=== PATIENT | female | born 1945 ===

== ENCOUNTER 2021-09-25 09:26 | Outpatient (REF) | payer MEDICARE, MEDICAID, SELFPAY ==
--- NOTE | ~2021-09-25 | MM_ITS ---
EXAMINATION: MM SCREENING DIGITAL BREAST TOMOSYNTHESIS, BILATERAL CLINICAL INFORMATION: Screening. Asymptomatic. The lifetime risk of breast cancer based on the Tyrer-Cuzick Model is under 2%. COMPARISON: Mammography: 08/14/2020, 08/09/2019, 07/19/2018 TECHNIQUE: Digital breast tomosynthesis is performed in both the craniocaudal and mediolateral oblique views along with computer-aided detection (CAD). Synthesized 2D images are generated from the tomosynthesis. FINDINGS: There are scattered areas of fibroglandular density (ACR BI-RADS breast composition Category b). There are no significant masses, abnormal calcifications, or other abnormalities. The axilla and skin contours are unremarkable. MM/MM tomosynthesis screening BI IMPRESSION: No mammographic evidence of malignancy. ASSESSMENT: BI-RADS 1: Negative RECOMMENDATION: Routine annual mammography screening. This patient's information was entered into a reminder system with a target due date for their next mammogram.
== END 2021-09-25 09:27 | disposition home or self-care (01) ==
LOC: HO.MAMMO 09:26
PROVIDERS: Visit Provider Internal Medicine
DX: Z12.31 Encounter for screening mammogram for malignant neoplasm of breast (principal)
CPT/HCPCS: 77063; 77067

== ENCOUNTER 2021-12-30 12:34 | Outpatient (REF) | payer MEDICARE, MEDICAID, SELFPAY ==
--- NOTE | ~2021-12-30 | CT_ITS ---
EXAMINATION: CT HEAD WITHOUT CONTRAST CLINICAL INFORMATION: Fall COMPARISON: Previous head CT most recent December 2014 TECHNIQUE: Contiguous axial imaging was performed from the skull base to vertex without intravenous administration of contrast. This CT examination was performed using dose optimization techniques as appropriate, variously including the following: *Automated exposure control *Adjustment of mA and/or kV according to patient size (this includes techniques or standardized protocols for targeted exams where dose is matched to indication/reason for exam; i.e. extremities or head) *Use of iterative reconstruction technique DLP: 677 mGy-cm FINDINGS: There is no evidence of acute intracranial hemorrhage or territorial infarction. No abnormal mass effect or midline shift is seen. Fry to white matter differentiation is well preserved. No extra-axial fluid collections are identified. The ventricles are normal in size. There is no abnormal attenuation within the brain parenchyma. The osseous structures and soft tissues are normal. The mastoid air cells and visualized portions of the paranasal sinuses are well aerated. CT/CT head/brain wo con IMPRESSION: Unremarkable exam.
== END 2021-12-30 12:35 | disposition home or self-care (01) ==
LOC: HO.CT 12:34
PROVIDERS: PCP Internal Medicine; Visit Provider Family Medicine
DX: R15.9 Full incontinence of feces (principal); R55 Syncope and collapse; R56.9 Unspecified convulsions
CPT/HCPCS: 70450

== ENCOUNTER 2022-01-14 09:05 | Outpatient (REF) | payer MEDICARE, MEDICAID, SELFPAY ==
[2022-01-14 10:17] LABS: Blood Urea Nitrogen 17 mg/dL (9-16); Estimated Glomerular Filt Rate 54
== END 2022-01-14 09:06 | disposition home or self-care (01) ==
LOC: HO.CT 09:05
PROVIDERS: Visit Provider Otolaryngology
DX: D37.039 Neoplasm of uncertain behavior of the major salivary glands, unspecified (principal)
CPT/HCPCS: 36415; 82565; 84520

== ENCOUNTER 2022-03-25 09:07 | Outpatient (REF) | payer MEDICARE, MEDICAID, SELFPAY ==
[2022-03-25 10:28] LABS: Blood Urea Nitrogen 14 mg/dL (9-16); Estimated Glomerular Filt Rate > 60
== END 2022-03-25 09:08 | disposition home or self-care (01) ==
LOC: HO.LAB 09:07
PROVIDERS: PCP Internal Medicine; Visit Provider Otolaryngology
DX: D37.030 Neoplasm of uncertain behavior of the parotid salivary glands (principal)
CPT/HCPCS: 36415; 82565; 84520

== ENCOUNTER 2022-03-26 10:34 | Outpatient (REF) | payer MEDICARE, MEDICAID, SELFPAY ==
--- NOTE | ~2022-03-26 | CT_ITS ---
EXAMINATION: CT SOFT TISSUE NECK WITH CONTRAST CLINICAL INFORMATION: Neoplasm of salivary. COMPARISON: Neck CT 01/19/2019. TECHNIQUE: Following the administration of 60 mL of Omnipaque 300 intravenous contrast, helical imaging was performed in the axial plane with generation of coronal and sagittal reformatted images. This CT examination was performed using dose optimization techniques as appropriate, variously including the following: *Automated exposure control *Adjustment of mA and/or kV according to patient size (this includes techniques or standardized protocols for targeted exams where dose is matched to indication/reason for exam; i.e. extremities or head) *Use of iterative reconstruction technique DLP: 221 mGy-cm FINDINGS: There is redemonstration of a lesion within the superficial aspect of the left parotid tail. The margins are not well-defined lytic lesion measuring approximately 1.2 cm, slightly increased compared with prior. An intraparotid lymph node within the superior portion of the left parotid gland appears stable from prior. A 5 mm nodule within the deep aspect of the left parotid gland seen on series 3 image 98 is stable. No inflammation is seen subjacent to the left parotid gland. There is no Stensen's duct dilatation. The right parotid gland appears normal. The bilateral submandibular glands appear normal. No enlarged cervical lymph nodes are seen. The pharyngeal and laryngeal contours appear normal. A subcentimeter nodule is seen within left lobe of the thyroid gland, stable from prior. This small nodule is below size criteria for dedicated thyroid ultrasound recommendation. No upper mediastinal adenopathy is seen. The upper lungs are clear with without consolidation. The major neck vessels are patent. No acute intracranial abnormality is seen. Mild degenerative changes are seen within the spine. CT/CT soft tissue neck w con IMPRESSION: Redemonstration of nodule within the superficial aspect of the left parotid tail, slightly increased in size compared with 2019 now measuring 1.2 cm, previously 1.1 cm. The reniform nodule within the more superior aspect of the superficial lobe likely represents an intraparotid lymph node and is stable. A 5 mm nodule in the deep lobe is also stable. No suspicious lymphadenopathy in the neck.
[2022-03-26] MEDS: iohexoL 350 MG/ML 100 ML INFUS..BTL IV (16:20)
== END 2022-03-26 10:35 | disposition home or self-care (01) ==
LOC: HO.CT 10:34
PROVIDERS: PCP Internal Medicine; Visit Provider Otolaryngology
DX: D37.030 Neoplasm of uncertain behavior of the parotid salivary glands (principal)
CPT/HCPCS: 70491; Q9967

== ENCOUNTER 2022-08-06 19:03 | Emergency (ER) | payer MEDICARE, MEDICAID, SELFPAY ==
--- NOTE | ~2022-08-06 | CT_ITS ---
EXAMINATION: CT ANGIOGRAM OF THE CHEST WITH AND WITHOUT CONTRAST (CT PULMONARY ANGIOGRAM FOR PE) CLINICAL INFORMATION: Reason for Exam sob and elevated d-dimer COMPARISON: 03/05/2017 TECHNIQUE: Prior to contrast administration, noncontrast localization images were obtained. Subsequently, multidetector volumetric imaging was performed from the thoracic inlet to below the diaphragms following the administration of 85 mL Omnipaque 350 intravenous contrast. No contrast reaction reported Sagittal, coronal, and MIP oblique sagittal reformatted images were obtained on the CT workstation, uploaded to PACS, and reviewed. This CT examination was performed using dose optimization techniques as appropriate, variously including the following: *Automated exposure control *Adjustment of mA and/or kV according to patient size (this includes techniques or standardized protocols for targeted exams where dose is matched to indication/reason for exam; i.e. extremities or head) *Use of iterative reconstruction technique Total exam dose-length product 212 mGy-cm FINDINGS: QUALITY OF STUDY/CONTRAST BOLUS: Satisfactory. PULMONARY ARTERIES: No central or segmental pulmonary emboli. THORACIC AORTA: No aneurysm or dissection. Scattered atherosclerotic calcifications. LUNG: No regions of consolidation bilaterally. There is a stable 4 mm nodule along a suspected accessory fissure in the right lower lobe. PLEURA: No pleural effusion or pneumothorax. MEDIASTINUM: Subcentimeter left thyroid lobe nodule noted. There are subcentimeter mediastinal lymph nodes within the range of normal variation. Cardiac size is within normal limits; no pericardial effusion. No evidence of septal bowing or right heart strain. CHEST WALL/AXILLA: No axillary or internal mammary lymphadenopathy. OSSEOUS STRUCTURES: Endplate osteophytes are present in the spine. UPPER ABDOMEN: Unremarkable. No reflux of contrast into the hepatic veins to suggest elevated right heart pressures. CT/CT angio chest PE protocol IMPRESSION: No pulmonary embolus identified. VTE: negative
--- NOTE | ~2022-08-06 | XR_ITS ---
EXAMINATION: XR CHEST CLINICAL INFORMATION: Chest tightness COMPARISON: Chest x-ray 09/10/2018 TECHNIQUE: Frontal view of the chest was obtained. FINDINGS: Small patchy opacity superimposing the left heart border adjacent to the anterior left fifth rib end. No airspace consolidation, pleural effusion, or pneumothorax. The cardiomediastinal silhouette is within normal limits. No acute osseous injury. XR/XR chest 1V IMPRESSION: 1. Small patchy opacity superimposing the left heart border, indeterminate. This may represent focal atelectasis, summation artifact or small pulmonary nodule. Low-dose chest CT could be performed for definitive assessment. 2. No acute pulmonary process.
[2022-08-06 19:22] VITALS: BP 137/56; BP 180/90; PULSE 110; PULSE 99; RESP 22; TEMP 36.7; O2SAT 100; BMI 25.7
--- NOTE | 2022-08-06 19:45 | ECG_ITS ---
Test Reason : ALLERGIC REACTION Blood Pressure : / mmHG Vent. Rate : 097 BPM Atrial Rate : 097 BPM P-R Int : 146 ms QRS Dur : 072 ms QT Int : 334 ms P-R-T Axes : 047 022 076 degrees QTc Int : 424 ms Normal sinus rhythm Nonspecific T wave abnormality Abnormal ECG When compared with ECG of 10-SEP-2018 10:51, No significant change was found Referred By: Ramiro Owens Electronically Signed By:MARLIN RUSSELL
--- NOTE | 2022-08-06 19:45 | ED_ITS ---
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 Patient was given for a flu vaccination today at 12:30 in her left arm, shortly after patient felt very anxious, tightness in her chest, SOB. Patient took the vaccination about 7 hours ago, in the emergency room patient is maintaining oxygenation to 100%, no sign of upper airway obstruction or swelling. Patient never had a history of allergic reaction to flu shot. Declined any recent travel couple no lower extremity swelling or tenderness. Never had a history of PE or DVT. Related Data Allergies Allergy/AdvReac Type Severity Reaction Status Date / Time acetaminophen [Percocet] Allergy Unknown Verified 07/28/19 00:00 ibuprofen [From MOTRIN] Allergy Unknown DIZZINESS Unverified 08/16/20 14:38 oxycodone [Percocet] Allergy Unknown Verified 07/28/19 00:00 From PERCOCET Allergy Unknown NAUSEA & Uncoded 08/16/20 14:38 VOMITING,DIZZINESS MOTRIN Allergy Unknown GASTRIC Uncoded 07/28/19 00:00 UPSET Review of Systems Review of Systems: All other systems are reviewed and are negative Constitutional: Reports as per HPI and Reports no additional constitutional complaints Eyes: Reports as per HPI and Reports no additional eye complaints Reports system reviewed and no additional complaints, except as documented Cardiovascular: Reports as per HPI and Reports no additional cardiovascular complaints Respiratory: Reports as per HPI and Reports no additional respiratory complaints Gastrointestinal: Reports as per HPI and Reports no additional gastrointestinal complaints Genitourinary: Reports no additional female genitourinary complaints Musculoskeletal: Reports no additional musculoskeletal complaints Skin/Breast: Reports system reviewed and no additional complaints, except as docu Psychiatric: Reports no additional psychiatric complaints Endocrine: Reports no additional endocrine complaints Hematologic/Lymphatic: Reports no additional hematologic/lymphatic complaints Allergic/Immunologic: Reports no additional allergic/immunologic complaints Reports system reviewed and no additional complaints, except as documented and Reports Abnormal speech present PMFSH Past Medical History Medical History Anxiety Chronic leg pain Hyperlipidemia Hypertension Social History Social History Alcohol intake: never Patient Tobacco Use Status: Never used Tobacco Use of substances other than those prescribed or required for medical reasons: No Advance Directives: No Physical Exam ED Vital Signs: Vital Signs - 24 hr 08/06/22 19:22 08/06/22 22:00 Temperature 98.1 F Pulse Rate 99 91 Respiratory Rate 22 H Blood Pressure 137/56 L 127/48 L Pulse Oximetry 100 97 Oxygen Delivery Method Room Air Room Air BMI result Body Mass Index 25.7 Vital signs have been reviewed as appeared to be correct. Blood pressure normal. Heart rate normal. Respiration rate normal. Temperature normal. Oxygen saturation normal. Appearance: Alert. Oriented X3. No acute distress. Head: Normal external exam. Normocephalic. Atraumatic. No Camp signs noted. No raccoon eyes noted Eyes: PERRLA. EOMI. Conjunctiva and sclera normal. Eyelids normal. ENT: TM's Normal. Pharynx normal. Uvula midline. Moist mucous membranes. No trismus noted. No drooling noted. No muffled voice noted. Neck: Normal inspection. Neck supple. FROM. No adenopathy. Thyroid Normal. No meningeal signs. No neck mass noted. CVS: Normal heart rate and rhythm. Heart sound normal. No murmurs noted. Pulses normal throughout. Respiratory: No respiratory distress. Painless inspiration. Breath sounds normal. No wheezes/rales/rhonchi noted. Chest nontender. No accessory muscle usage noted or decreased air movement noted. Abdomen: Soft and nontender. Bowel sounds normal in all 4 quadrants. No distention noted. No organomegaly noted. No visible injury noted. Back: No CVA tenderness. Full range of motion noted. Skin: Skin warm and dry. Normal skin color. Normal skin turgor. No rash es/lesions/lacerations noted. Extremities: No lower extremity edema. Extremities exhibit normal range of motion. Extremities nontender. Neuro: Oriented X 3. Cranial nerve exam: II-XII are grossly intact No motor deficit. No sensory deficit. Reflexes normal. Course Course Course Narrative: This is a 77-year-old female came in for evaluation of shortness of breath after having flu shot vaccination earlier today, overall patient is doing well, labs revealed elevated D-dimer with possibility of PE, patient will be getting CT angiogram of the chest due to allergy to IV contrast patient will be premedicated with Solu-Medrol 40 mg 4 hours before the study and 50 mg of Benadryl 1 hour before the study the patient was signed out to Dr. De La Cruz to check on the CTA result, Patient was able to ambulate in the emergency department with no exertional hypoxia. Because elevated D-dimer. Medical Decision Making Lab Data Lab results reviewed: Yes I reviewed the patient's lab results. Result diagrams: 08/06/22 20:15 08/06/22 20:15 Labs: Lab Results 08/06/22 08/06/22 08/06/22 Range/Units 20:15 20:15 20:15 WBC 11.0 H (4.8-10.8) X10*3/uL RBC 3.69 L (4.20-5.50) X10*6/uL Hgb 10.5 L (12.0-16.0) g/dl Hct 30.9 L (37.0-47.0) % MCV 83.7 (80.0-98.0) fL MCH 28.5 (27.0-33.0) pg MCHC 34.0 (31.0-35.0) g/dl RDW 13.6 (11.0-16.0) % Plt Count 285 (160-400) X10*3/uL MPV 9.4 (9.4-12.3) fL Immature Gran % (Auto) 0.5 H (0.0-0.4) % Neut % (Auto) 92.7 H (45-73) % Lymph % (Auto) 1.3 L (20-40) % [place] % (Auto) 4.8 (2-11) % Eos % (Auto) 0.5 (0-4) % Baso % (Auto) 0.2 (0-2) % Lymph # (Auto) 0.1 L (1.2-4.9) X10*3/uL [place] # (Auto) 0.5 (0.1-1.2) X10*3/uL Eos # (Auto) 0.1 (0.0-0.4) X10*3/uL Baso # (Auto) 0.0 (0.0-0.2) X10*3/uL Abs Immat Gran (auto) 0.05 H (0.00-0.03) X10*3/uL Absolute Neuts (auto) 10.2 H (2.0-8.3) x10*3/uL Absolute Nucleated RBC 0.000 (0.0-0.012) X10*3/uL Nucleated RBC % (auto) 0.0 (0.0-0.2) /100WBC Smear Tech's Comments VERIFIED D-Dimer High Sensitivty NG/ML Sodium 132 L (135-145) mmol/L Potassium 4.3 (3.3-5.1) mmol/L Chloride 99 (96-108) mmol/L Carbon Dioxide 22 (22-29) mmol/L Anion Gap 15 (12-20) BUN 27 H D (9-16) mg/dL Creatinine 1.15 (0.5-1.4) mg/dL Estim Creat Clear Calc 35.5 Estimated GFR 46 Random Glucose 110 (60-115) mg/dL Calcium 8.5 (8.4-10.2) mg/dL Total Bilirubin 0.5 (0.0-1.0) mg/dL Direct Bilirubin 0.2 (0.0-0.5) mg/dL AST 25 (5-31) U/L ALT 18 (0-31) U/L Alkaline Phosphatase 91 (39-117) U/L Troponin I High Sens < 3.5 (<3.5-17.0) ng/L B-Natriuretic Peptide (<100) pg/mL Total Protein 5.9 L (6.5-8.0) g/dL Albumin 3.5 (3.5-5.0) g/dL Lipase 45 (8-78) U/L Influenza Type A (PCR) (Negative) Influenza Type B (PCR) (Negative) RSV RNA Qual (PCR) (Negative) SARS-CoV-2 RNA (RT-PCR) (Negative) 08/06/22 08/06/22 08/06/22 Range/Units 20:15 20:15 20:15 WBC (4.8-10.8) X10*3/uL RBC (4.20-5.50) X10*6/uL Hgb (12.0-16.0) g/dl Hct (37.0-47.0) % MCV (80.0-98.0) fL MCH (27.0-33.0) pg MCHC (31.0-35.0) g/dl RDW (11.0-16.0) % Plt Count (160-400) X10*3/uL MPV (9.4-12.3) fL Immature Gran % (Auto) (0.0-0.4) % Neut % (Auto) (45-73) % Lymph % (Auto) (20-40) % [place] % (Auto) (2-11) % Eos % (Auto) (0-4) % Baso % (Auto) (0-2) % Lymph # (Auto) (1.2-4.9) X10*3/uL [place] # (Auto) (0.1-1.2) X10*3/uL Eos # (Auto) (0.0-0.4) X10*3/uL Baso # (Auto) (0.0-0.2) X10*3/uL Abs Immat Gran (auto) (0.00-0.03) X10*3/uL Absolute Neuts (auto) (2.0-8.3) x10*3/uL Absolute Nucleated RBC (0.0-0.012) X10*3/uL Nucleated RBC % (auto) (0.0-0.2) /100WBC Smear Tech's Comments D-Dimer High Sensitivty 692 NG/ML Sodium (135-145) mmol/L Potassium (3.3-5.1) mmol/L Chloride (96-108) mmol/L Carbon Dioxide (22-29) mmol/L Anion Gap (12-20) BUN (9-16) mg/dL Creatinine (0.5-1.4) mg/dL Estim Creat Clear Calc Estimated GFR Random Glucose (60-115) mg/dL Calcium (8.4-10.2) mg/dL Total Bilirubin (0.0-1.0) mg/dL Direct Bilirubin (0.0-0.5) mg/dL AST (5-31) U/L ALT (0-31) U/L Alkaline Phosphatase (39-117) U/L Troponin I High Sens (<3.5-17.0) ng/L B-Natriuretic Peptide 17 (<100) pg/mL Total Protein (6.5-8.0) g/dL Albumin (3.5-5.0) g/dL Lipase (8-78) U/L Influenza Type A (PCR) NEGATIVE (Negative) Influenza Type B (PCR) NEGATIVE (Negative) RSV RNA Qual (PCR) NEGATIVE (Negative) SARS-CoV-2 RNA (RT-PCR) NEGATIVE (Negative) Imaging Data Chest x-ray: Attestation: I personally reviewed and interpreted this imaging study as follows: Radiologist's impression: 1. Small patchy opacity superimposing the left heart border, indeterminate. This may represent focal atelectasis, summation artifact or small pulmonary nodule. Low-dose chest CT could be performed for definitive assessment. 2. No acute pulmonary process. ? ECG Data Attestation: I personally reviewed and interpreted this ECG as follows: Interpretation: Normal sinus rhythm at 97 beats per minutes, normal axis deviation, normal intervals, nonspecific T-wave inversion. No change from previous EKG. Discharge Plan Discharge Clinical Impression: Post-vaccination reaction Patient Disposition: Still a Patient Instructions: General Allergic Reaction (ED) Referrals: Anshu Mayo MD [Primary Care Provider] -
[2022-08-06 20:21] LABS: Basophils Percent Auto 0.2 % (0-2); Eosinophils Absolute Auto 0.1 X10*3/uL (0.0-0.4); Eosinophils Percent Auto 0.5 % (0-4); Hematocrit 30.9 % (37.0-47.0); Hemoglobin 10.5 g/dl (12.0-16.0); Imm Gran Abs Auto 0.05 X10*3/uL (0.00-0.03); Imm Gran Pct Auto 0.5 % (0.0-0.4); Lymphocytes Absolute Auto 0.1 X10*3/uL (1.2-4.9); Lymphocytes Percent Auto 1.3 % (20-40); MANUAL DIFF FLAG SCAN; Mean Corpuscular Hemoglobin 28.5 pg (27.0-33.0); Mean Corpuscular Volume 83.7 fL (80.0-98.0); Mean Platelet Volume 9.4 fL (9.4-12.3); Monocytes Absolute Auto 0.5 X10*3/uL (0.1-1.2); Monocytes Percent Auto 4.8 % (2-11); Neutrophils Absolute Auto 10.2 x10*3/uL (2.0-8.3); Neutrophils Percent Auto 92.7 % (45-73); Platelet Count 285 X10*3/uL (160-400); Red Blood Count 3.69 X10*6/uL (4.20-5.50); Red Cell Distribution Width 13.6 % (11.0-16.0); SCAN SMEAR FLAG 1
[2022-08-06 20:28] LABS: D Dimer High Sensitivity 692 NG/ML
[2022-08-06 20:35] LABS: Alanine Aminotransferase 18 U/L (0-31); Albumin Level 3.5 g/dL (3.5-5.0); Alkaline Phosphatase 91 U/L (39-117); Anion Gap 15 (12-20); Aspartate Amino Transferase 25 U/L (5-31); Bilirubin Direct 0.2 mg/dL (0.0-0.5); Bilirubin Total 0.5 mg/dL (0.0-1.0); Blood Urea Nitrogen 27 mg/dL (9-16); Calcium 8.5 mg/dL (8.4-10.2); Carbon Dioxide 22 mmol/L (22-29); Chloride 99 mmol/L (96-108); Creatinine Clr Calc Pharmacy 35.5; Estimated Glomerular Filt Rate 46; Glucose Random 110 mg/dL (60-115); Lipase 45 U/L (8-78); Potassium 4.3 mmol/L (3.3-5.1); Sodium 132 mmol/L (135-145); Total Protein 5.9 g/dL (6.5-8.0)
[2022-08-06 20:38] LABS: SLIDE REVIEW VERIFIED
[2022-08-06 20:41] LABS: B Type Natriuretic Peptide 17 pg/mL (<100); Troponin-I High Sensitivity < 3.5 ng/L (<3.5-17.0)
--- NOTE | 2022-08-06 20:50 | PC.NURSE ---
pt a&ox3, vss, chest XR and lab results pending. pt reports 10/10 chronic pain lower extremity pain, worse in left leg, 9/10 at baseline. no sob/difficulty breathing noted by RN.
[2022-08-06 21:14] LABS: Influenza A PCR NEGATIVE (Negative); Influenza B PCR NEGATIVE (Negative); Resp Syncy Virus RNA Qual PCR NEGATIVE (Negative); SARS COV2 PCR INHOUSE NEGATIVE (Negative)
[2022-08-06 22:00] VITALS: BP 127/48; PULSE 91; O2SAT 97
[2022-08-06] MEDS: methylPREDNISolone Sod Succ 40 MG/ML VIAL IVPUSH (22:26)
--- NOTE | 2022-08-06 22:30 | PC.NURSE ---
pt a&ox3, medicated per provider order pre CT scan.
[2022-08-06 23:48] VITALS: BP 133/59; PULSE 81; RESP 18
[2022-08-07] MEDS: diphenhydrAMINE HCL 50 MG/ML VIAL IVPUSH (01:01)
--- NOTE | 2022-08-07 01:05 | PC.NURSE ---
pt sleeping, woken up and medicated per provider order. pt pending CT.
[2022-08-07 01:46] VITALS: BP 136/63; PULSE 94; RESP 19
[2022-08-07 02:44] LABS: Appearance Urine Cloudy; Color Urine Yellow; Glucose Urine UA Negative (Negative); Leukocyte Esterase Urine Large (3+) (Negative); Nitrite Urine Negative (Negative); PH 6.5 (5.0-9.0); Specific Gravity - Urine <= 1.005 (1.005-1.025); Urine Blood Moderate (2+) (Negative); Urine Ketones Negative (Negative); Urine Protein 100 (2+) mg/dL (Neg-Trace)
[2022-08-07] MEDS: iohexoL 350 MG/ML 100 ML INFUS..BTL 85 ML IV (02:54)
[2022-08-07 02:55] LABS: Bacteria Urine 4+ (None Seen); Hyaline Casts Urine 0-2 /LPF (0-2); RBC Urine 0-2 /HPF (0-2); Squamous Epithelial Cell Urine >20 /HPF (0-2); UACC Culture Trigger YES; WBC Urine >50 /HPF (0-5)
== END 2022-08-07 04:01 | disposition home or self-care (01) ==
PROVIDERS: Emergency Provider Emergency Medicine; PCP Internal Medicine
DX: R06.02 Shortness of breath (principal); T50.B95A Adverse effect of other viral vaccines, initial encounter; Y92.039 Unspecified place in apartment as the place of occurrence of the external cause; E78.5 Hyperlipidemia, unspecified; I10 Essential (primary) hypertension; Z20.822 Contact with and (suspected) exposure to COVID-19
CPT/HCPCS: 0241U; 36415; 71045; 71275; 80048; 80076; 81001; 83690; 83880; 84484; 85025; 85379; 87086; 93005; 96374; 96375; 99284; J1200; J2920; Q9967

== ENCOUNTER 2022-09-23 07:28 | Outpatient (REF) | payer MEDICARE, MEDICAID, SELFPAY ==
--- NOTE | ~2022-09-23 | CT_ITS ---
EXAMINATION: CT CHEST WITHOUT CONTRAST CLINICAL INFORMATION: Pulmonary nodule COMPARISON: Previous chest CT scans most recent chest CTA July 2022 and February 2017 TECHNIQUE: Multidetector volumetric CT imaging of the chest was done. Axial MIP volume rendering provided. Sagittal and coronal reformatted images were obtained. This CT examination was performed using dose optimization techniques as appropriate, variously including the following: *Automated exposure control *Adjustment of mA and/or kV according to patient size (this includes techniques or standardized protocols for targeted exams where dose is matched to indication/reason for exam; i.e. extremities or head) *Use of iterative reconstruction technique DLP: 113 mGy-cm FINDINGS: DIGITAL ARCHIVIST: Unremarkable. LUNGS: There is scarring or chronic subsegmental atelectasis in the right upper lobe axial image 79 series 5 that is stable. There is a 4 mm right lower lobe nodule axial image 258 series 5 that is stable. There is a 3 mm right lower lobe nodule axial image 326 series 5 that is stable. There may be mild bronchiectasis seen in the bilateral lower lobes. This is stable as well. MEDIASTINUM: The mediastinum is normal. CORONARY ARTERY CALCIFICATION: Mild PLEURA: There is no pleural effusion. No pleural mass or thickening. AXILLA: No lymphadenopathy. UPPER ABDOMEN: Unremarkable. OSSEOUS STRUCTURES: Mild degenerative changes. CT/CT chest wo IV con IMPRESSION: Stable small right pulmonary nodules. Fleischner guidelines were followed.
== END 2022-09-23 07:29 | disposition home or self-care (01) ==
LOC: HO.CT 07:28
PROVIDERS: PCP Internal Medicine; Visit Provider Internal Medicine
DX: R91.1 Solitary pulmonary nodule (principal); R93.89 Abnormal findings on diagnostic imaging of other specified body structures
CPT/HCPCS: 71250

== ENCOUNTER 2022-10-01 09:29 | Outpatient (REF) | payer MEDICARE, MEDICAID, SELFPAY ==
--- NOTE | ~2022-10-01 | MM_ITS ---
EXAMINATION: MM SCREENING DIGITAL BREAST TOMOSYNTHESIS, BILATERAL CLINICAL INFORMATION: Screening. Asymptomatic. COMPARISON: Mammography: 09/25/2021, 08/14/2020, 08/09/2019 TECHNIQUE: Digital breast tomosynthesis is performed in both the craniocaudal and mediolateral oblique views along with computer-aided detection (CAD). Synthesized 2D images are generated from the tomosynthesis. FINDINGS: There are scattered areas of fibroglandular density (ACR BI-RADS breast composition Category b). There are no significant masses, abnormal calcifications, or other abnormalities. Parenchymal pattern is similar to prior studies. There is no developing density or architectural abnormality. The axilla and skin contours are unremarkable. No significant changes. MM/MM tomosynthesis screening BI IMPRESSION: No mammographic evidence of malignancy. ASSESSMENT: BI-RADS 1: Negative RECOMMENDATION: Routine annual mammography screening. This patient's information was entered into a reminder system with a target due date for their next mammogram.
== END 2022-10-01 09:30 | disposition home or self-care (01) ==
LOC: HO.MAMMO 09:29
PROVIDERS: PCP Internal Medicine; Visit Provider Internal Medicine
DX: Z12.31 Encounter for screening mammogram for malignant neoplasm of breast (principal)
CPT/HCPCS: 77063; 77067

== ENCOUNTER 2023-10-07 09:24 | Outpatient (REF) | payer MEDICARE, MEDICAID, SELFPAY | END 2023-10-07 09:25 | disposition home or self-care (01) | LOC: HO.MAMMO 09:24 | PROVIDERS: Visit Provider Internal Medicine | DX: Z12.31 Encounter for screening mammogram for malignant neoplasm of breast (principal) | CPT/HCPCS: 77063; 77067 ==

== ENCOUNTER → 2023-10-07 10:00 | Outpatient (BNV) | payer MEDICARE, MEDICAID, SELFPAY | PROVIDERS: Visit Provider Radiology Diagnostic Radiology | DX: Z12.31 Encounter for screening mammogram for malignant neoplasm of breast (principal) | CPT/HCPCS: 77063; 77067 ==

== ENCOUNTER 2024-02-21 16:21 | Inpatient (IN) | payer OTHER, SELFPAY ==
[2024-02-21] VITALS (9 sets, daily range): BP systolic 136–202; BP diastolic 45–80; PULSE 77–95; RESP 15–24; TEMP 36.4–36.8; O2SAT 95–99; BMI 23.6
--- NOTE | 2024-02-21 | ECG_ITS ---
Test Reason : chest pain Blood Pressure : / mmHG Vent. Rate : 085 BPM Atrial Rate : 085 BPM P-R Int : 132 ms QRS Dur : 072 ms QT Int : 376 ms P-R-T Axes : 025 017 162 degrees QTc Int : 447 ms Normal sinus rhythm T wave abnormality, consider inferolateral ischemia Abnormal ECG When compared with ECG of 06-AUG-2022 19:54, T wave inversion now evident in Inferior leads T wave inversion now evident in Lateral leads Referred By: Gail Liriano Electronically Signed By:Nic Crowell
--- NOTE | ~2024-02-21 | XR_ITS ---
EXAMINATION: XR CHEST CLINICAL INFORMATION: SOB COMPARISON: Chest x-ray 08/06/2022 TECHNIQUE: Frontal view of the chest was obtained. FINDINGS: Lungs are clear. No focal airspace consolidation. No pneumothorax or pleural effusion. Cardiac silhouette within normal limits. Right shoulder osteoarthritis. Soft tissue structures within normal limits. XR/XR chest 1V IMPRESSION: No acute cardiopulmonary process.
--- NOTE | 2024-02-21 16:47 | PC.NURSE ---
Pt coming from home via EMS, EMS gave pt 0.4 mg of nitro SL due to CP and HTN (pressures were 200 systolic for EMS, improved to 136/45 after 1 nitro). Pt is Turkmen speaking only, private pilot utilized. Pt reports she woke up with SOB, CP (describes as tightness across her chest, 05/09), diarrhea and feeling anxious. Pt reports she took her home anxiety meds but did not feel better. Pt denies any recent illnesses, cough, fever. Pt is alert and oriented, breathing slightly tachypneic, skin dry. 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 Pt noted to be significantly hypertensive. ECG ordered immediately.
--- NOTE | 2024-02-21 17:04 | PC.NURSE ---
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
[2024-02-21 17:08] LABS: Basophils Percent Auto 0.3 % (0-2); Eosinophils Absolute Auto 0.1 X10*3/uL (0.0-0.4); Eosinophils Percent Auto 1.1 % (0-4); Hematocrit 41.1 % (37.0-47.0); Hemoglobin 14.1 g/dl (12.0-16.0); Imm Gran Abs Auto 0.05 X10*3/uL (0.00-0.03); Imm Gran Pct Auto 0.4 % (0.0-0.4); Lymphocytes Absolute Auto 0.4 X10*3/uL (1.2-4.9); Lymphocytes Percent Auto 3.6 % (20-40); MANUAL DIFF FLAG SCAN; Mean Corpuscular HGB Conc 34.3 g/dl (31.0-35.0); Mean Corpuscular Hemoglobin 29.8 pg (27.0-33.0); Mean Corpuscular Volume 86.9 fL (80.0-98.0); Mean Platelet Volume 10.1 fL (9.4-12.3); Monocytes Absolute Auto 0.5 X10*3/uL (0.1-1.2); Monocytes Percent Auto 4.2 % (2-11); Neutrophils Absolute Auto 10.4 x10*3/uL (2.0-8.3); Neutrophils Percent Auto 90.4 % (45-73); Platelet Count 302 X10*3/uL (160-400); Red Blood Count 4.73 X10*6/uL (4.20-5.50); SCAN SMEAR FLAG 1; White Blood Count 11.6 X10*3/uL (4.8-10.8)
--- NOTE | 2024-02-21 17:18 | ECG_ITS ---
Test Reason : repeat ekg Blood Pressure : / mmHG Vent. Rate : 082 BPM Atrial Rate : 082 BPM P-R Int : 144 ms QRS Dur : 070 ms QT Int : 380 ms P-R-T Axes : 032 009 140 degrees QTc Int : 443 ms Normal sinus rhythm T wave abnormality, consider anterolateral ischemia Abnormal ECG When compared with ECG of 21-FEB-2024 16:50, Nonspecific T wave abnormality has replaced inverted T waves in Inferior leads Referred By: Gail Liriano Electronically Signed By:Nic Crowell
[2024-02-21 17:25] LABS: SLIDE REVIEW VERIFIED
[2024-02-21 17:52] LABS: B Type Natriuretic Peptide 88 pg/mL (<100)
[2024-02-21 18:00] LABS: Anion Gap 11 (12-20); Blood Urea Nitrogen 12 mg/dL (9-16); Calcium 8.9 mg/dL (8.4-10.2); Carbon Dioxide 25 mmol/L (22-29); Chloride 106 mmol/L (96-108); Creatinine Clr Calc Pharmacy 41.1; Estimated Glomerular Filt Rate 59; Glucose Random 116 mg/dL (60-115); Lipase 30 U/L (8-78); Potassium 3.9 mmol/L (3.3-5.1); Sodium 138 mmol/L (135-145)
[2024-02-21 18:09] LABS: Troponin-I High Sensitivity 3.2 ng/L (<3.5-17.0)
[2024-02-21 18:20] LABS: Influenza A PCR NEGATIVE (Negative); Influenza B PCR NEGATIVE (Negative); Resp Syncy Virus RNA Qual PCR NEGATIVE (Negative); SARS COV2 PCR INHOUSE NEGATIVE (Negative)
--- NOTE | 2024-02-21 18:47 | ED.CHESTPAIN ---
HPI - Chest Pain General Chief Complaint: Chest Pain Stated Complaint: Chest/abdominal pain, HTN, nitro given Time Seen by Provider: 02/21/24 17:13 Source: patient Mode of arrival: EMS Limitations: no limitations History of Present Illness HPI narrative: Patient comes to the emergency room complaining of chest pressure and shortness of breath that started earlier this morning. Also, patient reports 1 episode of diarrhea. Patient states that she has been feeling anxious all day. Patient called the ambulance, patient was given nitroglycerin sublingual. Patient continues feeling very anxious. Patient states that she still has pressure, and anxiety continues. Related Data Previous Rx's Medication Instructions Recorded amlodipine 10 mg tablet 10 mg PO DAILY #90 tabs 02/21/24 Allergies Allergy/AdvReac Type Severity Reaction Status Date / Time acetaminophen [Percocet] Allergy Unknown Verified 07/28/19 00:00 ibuprofen [From MOTRIN] Allergy Unknown DIZZINESS Unverified 08/16/20 14:38 oxycodone [Percocet] Allergy Unknown Verified 07/28/19 00:00 From PERCOCET Allergy Unknown NAUSEA & Uncoded 08/16/20 14:38 VOMITING,DIZZINESS MOTRIN Allergy Unknown GASTRIC Uncoded 07/28/19 00:00 UPSET Review of Systems Review of Systems: Constitutional : No Weight loss, No Fever, No Chills, No Night Sweats, No Fatigue, No Malaise ENT/Mouth : No Hearing loss, No Ear Pain, No Nasal Congestion, No Sinus Pain, No Hoarseness, No sore throat, No Rhinorrhea, No Swallowing Difficulty Eyes: No Eye Pain, No Swelling, No Redness, No Foreign Body, No Discharge, No Vision Changes Cardiovascular : Complaining of chest pressure without Chest Pain, No SOB, No Dyspnea on Exertion, No Orthopnea, No Edema, No Palpitations Respiratory : Patient complaining of shortness of breath, no wheezing, no coughing Gastrointestinal : No Nausea, No Vomiting, No Diarrhea, No Constipation, No abdominal Pain, No Hematochezia, No Melena Genitourinary : no irregular bleeding, No Dysuria, No Urinary Frequency, No Hematuria, No Urinary Incontinence, No Urgency, No Flank Pain, No Urinary Flow Changes, No Hesitancy Musculoskeletal : No joint pain, No Myalgias, No Joint Swelling Skin : No Skin Lesions, No rash Neuro : No Weakness, No Numbness, No Paresthesias, No Loss of Consciousness, No Dizziness, No Headache Psych : Complaining of Anxiety/Panic, No Depression, No SI/HI/AH/VH, No Social Issues, Heme/Lymph: No Bruising, No Bleeding,No Lymphadenopathy Endocrine : No Polyuria, No Polydipsia, No Temperature Intolerance [facility] [place] Past Medical History Medical History Chronic leg pain Anxiety Hyperlipidemia Hypertension Social History Social History Alcohol intake: never Patient Tobacco Use Status: Never used Tobacco Smoked in Last 30 Days: No Use of substances other than those prescribed or required for medical reasons: No Advance Directives: No Advance Directives Information Provided: No Physical Exam Vital Signs: Vital Signs: Last Vital Signs Temp 98.3 F 02/21/24 22:23 Pulse 77 02/21/24 22:23 Resp 16 02/21/24 22:23 BP 171/63 H 02/21/24 22:23 Pulse Ox 97 02/21/24 22:23 O2 Del Method Room Air 02/21/24 22:23 BMI result Body Mass Index 23.6 Const: Other: Appearance: Alert. Oriented X3. No acute distress but anxious and tearful Eyes: Pupils equal, round and reactive to light. ENT: Pharynx normal. Neck: Normal inspection. Neck supple. No lymph nodes noted. No crepitus CVS: Normal heart rate and rhythm. Pulses normal. Normal S1 and S2 Respiratory: No respiratory distress. Breath sounds normal. No Wheezing. No rales Abdomen: Soft and nontender. No rigidity. No distention. Skin: Skin warm and dry. Normal skin color. Normal skin turgor. Extremities: No lower extremity edema. No Lacerations. No Rash Neuro: Oriented X 3. No motor deficit. No sensory deficit. Moving all extremities. No slurred speech. CN 2 through 12 grossly intact Psych: calm, cooperative, anxious and tearful Course Course Course Narrative: -labs and imaging pending Medications Administered Discontinued Medications Generic Name Dose Route Start Last Admin Trade Name Freq PRN Reason Stop Dose Admin Amlodipine Besylate 10 mg 02/21/24 19:28 02/21/24 19:50 Amlodipine Besylate 10 Mg Tablet PO 02/21/24 19:29 Not Given ONCE ONE Protocol Labetalol HCl 100 mg 02/21/24 21:43 02/21/24 21:57 Labetalol Hcl 100 Mg Tablet PO 02/21/24 21:44 100 mg ONCE ONE Administration Protocol Medical Decision Making Medical Decision Making MDM Narrative: -my interpretation of labs, white blood cell count 11.6, chronic, hematology within normal limits, chemistry within normal limits, troponin negative, lipase negative. Serology negative for COVID influenza RSV -my interpretation of chest x-ray: No infiltrates or pleural effusions -patient's blood pressure 180s systolic, patient denies chest pain or shortness of breath. Patient being given 10 mg of p.o. amlodipine -patient's blood pressure 170 systolic after amlodipine. Patient states that she is compliant with her blood pressure medications at home which include metoprolol 200 mg and losartan 100 mg. -patient states that her blood pressure has been elevated in the 170s 180s for several months. -my interpretation of EKG: Normal sinus rhythm, heart rate 85, nonspecific T-wave inversions in V4 V5 V6 which are new from previous EKGs, no ST segment depressions, QTC 447, these are new T-wave inversions when compared to previous EKGs from 2021 -troponin x1 negative -EKG 2. Today: Normal sinus rhythm, heart rate 82, no ST segment depression or elevation, T-wave inversions in lead V3 to V6, QTC 443 -patient has no chest pain at this time. However, even with blood pressure correction this T-waves still remained. Current blood pressure 152/63 -I discussed with the patient that I recommend admission, patient reluctant to stay, but after having a long conversation with her, patient agreed. -I discussed the patient with Dr. Arita, patient agrees that the patient needs to be admitted for further evaluation. -blood pressure at 21:40, 186/61, patient getting labetalol 100 mg. Patient to be admitted. -at this time, 22:23, blood pressure 171/63, patient asymptomatic. -I discussed the patient with our hospitalist Dr. Landry, patient being admitted. Differential Diagnosis Differential Diagnoses: The differential diagnosis associated with the presentation includes (Hypertensive urgency, anxiety, ACS) Admission/Observation Consideration of admission/observation: Escalation of care including admission/observation considered (Given patient's presentation, symptoms and vitals, patient was considered) Consult Healthcare Provider Management of the patient was discussed with: Hospitalist Lab Data MDM Lab Attestation statement: I reviewed the patient's lab results. 02/21/24 17:02 02/21/24 17:35 Labs: Lab Results 02/21/24 02/21/24 02/21/24 Range/Units 17:02 17:35 21:39 WBC 11.6 H (4.8-10.8) X10*3/uL RBC 4.73 D (4.20-5.50) X10*6/uL Hgb 14.1 D (12.0-16.0) g/dl Hct 41.1 D (37.0-47.0) % MCV 86.9 (80.0-98.0) fL MCH 29.8 (27.0-33.0) pg MCHC 34.3 (31.0-35.0) g/dl RDW 13.0 (11.0-16.0) % Plt Count 302 (160-400) X10*3/uL MPV 10.1 (9.4-12.3) fL Immature Gran % (Auto) 0.4 (0.0-0.4) % Neut % (Auto) 90.4 H (45-73) % Lymph % (Auto) 3.6 L (20-40) % [place] % (Auto) 4.2 (2-11) % Eos % (Auto) 1.1 (0-4) % Baso % (Auto) 0.3 (0-2) % Lymph # (Auto) 0.4 L (1.2-4.9) X10*3/uL [place] # (Auto) 0.5 (0.1-1.2) X10*3/uL Eos # (Auto) 0.1 (0.0-0.4) X10*3/uL Baso # (Auto) 0.0 (0.0-0.2) X10*3/uL Abs Immat Gran (auto) 0.05 H (0.00-0.03) X10*3/uL Absolute Neuts (auto) 10.4 H (2.0-8.3) x10*3/uL Absolute Nucleated RBC 0.000 (0.0-0.012) X10*3/uL Nucleated RBC % (auto) 0.0 (0.0-0.2) /100WBC Smear Tech's Comments VERIFIED Sodium 138 (135-145) mmol/L Potassium 3.9 (3.3-5.1) mmol/L Chloride 106 (96-108) mmol/L Carbon Dioxide 25 (22-29) mmol/L Anion Gap 11 L (12-20) BUN 12 (9-16) mg/dL Creatinine 0.92 (0.5-1.4) mg/dL Estim Creat Clear Calc 41.1 Estimated GFR 59 Random Glucose 116 H (60-115) mg/dL Calcium 8.9 (8.4-10.2) mg/dL Troponin I High Sens 3.2 2.9 (<3.5-17.0) ng/L B-Natriuretic Peptide 88 (<100) pg/mL Lipase 30 (8-78) U/L Urine Color Urine Appearance Urine pH (5.0-9.0) Ur Specific [place] (1.005-1.025) Urine Protein (Neg-Trace) mg/dL Urine Glucose (UA) (Negative) mg/dL Urine Ketones (Negative) mg/dL Urine Blood (Negative) Urine Nitrite (Negative) Ur Leukocyte Esterase (Negative) Urine RBC (0-2) /HPF Urine WBC (0-5) /HPF Ur Squamous Epith Cells (0-2) /HPF Urine Bacteria (None Seen) Hyaline Casts (0-2) /LPF Influenza Type A (PCR) NEGATIVE (Negative) Influenza Type B (PCR) NEGATIVE (Negative) RSV RNA Qual (PCR) NEGATIVE (Negative) SARS-CoV-2 RNA (RT-PCR) NEGATIVE (Negative) 02/21/24 Range/Units 22:06 WBC (4.8-10.8) X10*3/uL RBC (4.20-5.50) X10*6/uL Hgb (12.0-16.0) g/dl Hct (37.0-47.0) % MCV (80.0-98.0) fL MCH (27.0-33.0) pg MCHC (31.0-35.0) g/dl RDW (11.0-16.0) % Plt Count (160-400) X10*3/uL MPV (9.4-12.3) fL Immature Gran % (Auto) (0.0-0.4) % Neut % (Auto) (45-73) % Lymph % (Auto) (20-40) % [place] % (Auto) (2-11) % Eos % (Auto) (0-4) % Baso % (Auto) (0-2) % Lymph # (Auto) (1.2-4.9) X10*3/uL [place] # (Auto) (0.1-1.2) X10*3/uL Eos # (Auto) (0.0-0.4) X10*3/uL Baso # (Auto) (0.0-0.2) X10*3/uL Abs Immat Gran (auto) (0.00-0.03) X10*3/uL Absolute Neuts (auto) (2.0-8.3) x10*3/uL Absolute Nucleated RBC (0.0-0.012) X10*3/uL Nucleated RBC % (auto) (0.0-0.2) /100WBC Smear Tech's Comments Sodium (135-145) mmol/L Potassium (3.3-5.1) mmol/L Chloride (96-108) mmol/L Carbon Dioxide (22-29) mmol/L Anion Gap (12-20) BUN (9-16) mg/dL Creatinine (0.5-1.4) mg/dL Estim Creat Clear Calc Estimated GFR Random Glucose (60-115) mg/dL Calcium (8.4-10.2) mg/dL Troponin I High Sens (<3.5-17.0) ng/L B-Natriuretic Peptide (<100) pg/mL Lipase (8-78) U/L Urine Color Yellow Urine Appearance Cloudy Urine pH 7.0 (5.0-9.0) Ur Specific [place] 1.020 (1.005-1.025) Urine Protein >=1000 (4+) H (Neg-Trace) mg/dL Urine Glucose (UA) Negative (Negative) mg/dL Urine Ketones Negative (Negative) mg/dL Urine Blood Moderate (2+) H (Negative) Urine Nitrite Negative (Negative) Ur Leukocyte Esterase Moderate (2+) H (Negative) Urine RBC >20 H (0-2) /HPF Urine WBC >50 H (0-5) /HPF Ur Squamous Epith Cells >20 (0-2) /HPF Urine Bacteria 4+ (None Seen) Hyaline Casts 6-10 (0-2) /LPF Influenza Type A (PCR) (Negative) Influenza Type B (PCR) (Negative) RSV RNA Qual (PCR) (Negative) SARS-CoV-2 RNA (RT-PCR) (Negative) Independent Interpretation I performed an independent interpretation of an: EKG (My interpretation of EKG, normal sinus rhythm, heart rate 85, no ST segment depression or elevation,) Radiology Impression Discussion of test interpretation with radiology: I have reviewed the radiologist's reading. Radiologist Impression: Lungs are clear. No focal airspace consolidation. No pneumothorax or pleural effusion. Cardiac silhouette within normal limits. Right shoulder osteoarthritis. Soft tissue structures within normal limits. XR/XR chest 1V IMPRESSION: No acute cardiopulmonary process. Independent Historian Clinical information obtained from an independent historian. History obtained from or confirmed by: Other (AIRCRAFT INSTRUMENT TESTER) Critical Care Time Critical Care Time Critical Care Time: Yes Total Critical Care Time: 75 Attestation: I have personally provided critical care time. Time includes review of lab data, radiology results, discussion with consultants, and monitoring for potential decompensation. Intervention performed as documented. Discharge Plan Discharge Clinical Impression: Chest pain, Hypertensive urgency Patient Disposition: Admitted As Inpatient
--- NOTE | 2024-02-21 19:50 | PC.NURSE ---
pt bp improved. hold amlodipine per Dr. Liriano.
--- NOTE | 2024-02-21 21:41 | PC.NURSE ---
pt requested this RN to speak about discharge. with staff development coordinator rn pt reported her sx resolved and she'd like to go home if her results are negative. BP had improved however new t wave inversion noted. repeat ekg obtained. Dr. Lriiano order for repeat troponin. Dr. Liriano at bedside to education patient about plan of care; clutch inspector also educated via telephone by Dr. Liriano. both state understanding plan of care to be admitted to hospital; deny questions/concerns at this time. nad. pt speaking full clear sentences denies sob/n/v/d. call nguyen within reach.
[2024-02-21] MEDS: Labetalol HCL 100 MG TABLET PO (21:57)
[2024-02-21 22:08] LABS: Troponin-I High Sensitivity 2.9 ng/L (<3.5-17.0)
--- NOTE | 2024-02-21 22:10 | PC.NURSE ---
pt tolerated po med per mar with water. ambulated with steady gait to bathroom. ua sent to lab. pt assisted back into room resting comfortably on stretcher watching tv. call nguyen within reach. awaiting lab results.
[2024-02-21 22:14] LABS: Appearance Urine Cloudy; Color Urine Yellow; Glucose Urine UA Negative (Negative); Leukocyte Esterase Urine Moderate (2+) (Negative); Nitrite Urine Negative (Negative); UMIC TRIGGER UACC YES; Urine Blood Moderate (2+) (Negative); Urine Ketones Negative (Negative); Urine Protein >=1000 (4+) mg/dL (Neg-Trace)
[2024-02-21 22:21] LABS: Bacteria Urine 4+ (None Seen); RBC Urine >20 /HPF (0-2); Squamous Epithelial Cell Urine >20 /HPF (0-2); UACC Culture Trigger YES; WBC Urine >50 /HPF (0-5)
--- NOTE | 2024-02-21 23:13 | PM.IMHP ---
History of Present Illness Date of Service: 02/21/24 Attending physician on admission: Halina Collins Chief Complaint: Chest pain Jelly Pope is a Portuguese-speaking 78 y/o woman with past medical history significant for hypertension, hyperlipidemia and anxiety was brought to the emergency department due to chest pain. Patient stated that the chest pain started this morning. She localizes it in the lower mid chest and described it as a pressure. It does radiate to the epigastrium. She stated that she has been experiencing chest pain over the last several months. These episodes are self-limited and usually lasts for 10 minutes. Chest pain is occuring at rest and exertion. Associated symptoms she complains of shortness on breath and nausea. She mentioned that this morning she had an event of diarrhea. Denied cough, vomiting, fever or chills. Denied any acute urinary changes. She denies history of coronary artery disease, congestive heart failure, stroke or diabetes mellitus. She denies tobacco smoking, alcohol abuse or illicit drug use. In the ED, she was initially found to have a blood pressure of 202/73 and some tachypnea. There is no tachycardia and O2 sat normal on room air. Blood workup is remarkable for slow leukocytosis. Hemoglobin is 14.1. There are no electrolyte imbalances. Renal function is normal. Troponin x2 is negative. BNP is 88. Lipase is 30. Urinalysis showed finding of urinary tract infection. ECG showed T-wave inversions from V3 to V6. CXR is negative. ED Tx: Amlodipine 10 mg p.o., labetalol 100 mg p.o. Review of Systems Review of Systems: All 12 systems were reviewed and normal except as noted in HPI. COUNTS INCLUDE 234 BEDS AT THE [facility] Medical History (Updated 02/22/24 @ 01:01 by Halina oCllins MD) Chronic leg pain Anxiety Hyperlipidemia Hypertension Social History Alcohol intake: never Patient Tobacco Use Status: Never used Tobacco Smoked in Last 30 Days: No Use of substances other than those prescribed or required for medical reasons: No Advance Directives: No Advance Directives Information Provided: No Meds Allergies Allergy/AdvReac Type Severity Reaction Status Date / Time ibuprofen [From MOTRIN] Allergy Unknown DIZZINESS Verified 02/21/24 23:51 oxycodone [Percocet] Allergy Unknown Unknown Verified 02/21/24 23:51 From PERCOCET Allergy Unknown NAUSEA & Uncoded 02/21/24 23:51 VOMITING,DIZZINESS MOTRIN Allergy Unknown GASTRIC Uncoded 02/21/24 23:51 UPSET Active Medications: Current Medications Acetaminophen (Acetaminophen 325 Mg Tablet) 650 mg PO Q6H PRN PRN Reason: Pain, Mild (Pain Scale 1-3) Aspirin (Aspirin Enteric Coated 81 Mg Tablet.Dr) 81 mg PO QAM [facility] Atorvastatin Calcium (Atorvastatin Calcium 40 Mg Tablet) 40 mg PO BEDTIME KRISH Enoxaparin Sodium (Enoxaparin Sodium 40 Mg/0.4 Ml Syringe) 40 mg SUBCUT Q24H KRISH Losartan Potassium (Losartan Potassium 50 Mg Tablet) 100 mg PO DAILY KRISH; Protocol Metoprolol Succinate (Metoprolol Succinate Er 100 Mg Tab.Er.24h) 200 mg PO DAILY KRISH; Protocol Nitroglycerin (Nitroglycerin 0.4 Mg Tab.Subl) 0.4 mg SUBLINGUAL Q5MX3 PRN PRN Reason: Chest Pain Sertraline HCl (Sertraline Hcl 100 Mg Tablet) 100 mg PO QAM [facility] Sodium Chloride (0.9 % Sodium Chloride Flush 3 Ml Syringe) 3 ml IVFLUSH QSHIFT KRISH Trazodone HCl (Trazodone Hcl 50 Mg Tablet) 50 mg PO BEDTIME PRN PRN Reason: Insomnia Home Medications Medication Instructions Recorded Confirmed Last Taken Type aspirin 81 mg tablet,delayed 81 mg PO QAM 02/21/24 02/21/24 Unknown History release atorvastatin 40 mg tablet 40 mg BEDTIME 02/21/24 02/21/24 Unknown History clonazepam 0.5 mg tablet 0.5 mg PO DAILY PRN Anxiety 02/21/24 02/21/24 Unknown History fluticasone propionate 50 intranasal BID 02/21/24 Unknown History mcg/actuation nasal spray,suspension losartan 100 mg tablet 100 mg DAILY 02/21/24 02/21/24 Unknown History metoprolol succinate 200 mg 200 mg PO DAILY 02/21/24 02/21/24 Unknown History tablet,extended release 24 hr sertraline 100 mg tablet 100 mg PO QAM 02/21/24 02/21/24 Unknown History trazodone 50 mg tablet 50 mg PO BEDTIME PRN Insomnia 02/21/24 02/21/24 Unknown History Physical Exam Vital Signs and Narrative: Vital Signs: Last Vital Signs Temp 98.3 F 02/21/24 22:23 Pulse 77 02/21/24 22:23 Resp 16 02/21/24 22:23 BP 171/63 H 02/21/24 22:23 Pulse Ox 97 02/21/24 22:23 O2 Del Method Room Air 02/21/24 22:23 BMI result Body Mass Index 23.6 Constitutional - Awake and Alert, No apparent distress. Febrile. HEENT - Pupils equaly round. Normal sclerae. Normal oral mucosa. Heart - Regular rate and rhythm. (+) murmur. Lungs - Normal lung expansion, Normal respiratory effort, No respiratory distress, CTA bilaterally Abdomen - NT / ND; +BS; No rebound or guarding Extremities - no calf tenderness bilaterally, no swelling Musculoskeletal - Normal inspection, normal ROM Skin - Warm/Dry Neurological - Alert & oriented x3. No focal weakness. Normal speech. Psychological - Appropriate affect Results Labs 02/21/24 17:02 02/21/24 17:35 Labs: Laboratory Results - last 24 hr 02/21/24 02/21/24 02/21/24 17:02 17:35 21:39 MCV 86.9 MCH 29.8 MCHC 34.3 RDW 13.0 Plt Count 302 MPV 10.1 Immature Gran % (Auto) 0.4 Neut % (Auto) 90.4 H Lymph % (Auto) 3.6 L [place] % (Auto) 4.2 Eos % (Auto) 1.1 Baso % (Auto) 0.3 Lymph # (Auto) 0.4 L [place] # (Auto) 0.5 Eos # (Auto) 0.1 Baso # (Auto) 0.0 Abs Immat Gran (auto) 0.05 H Absolute Neuts (auto) 10.4 H Absolute Nucleated RBC 0.000 Nucleated RBC % (auto) 0.0 Smear Tech's Comments VERIFIED Anion Gap 11 L Estim Creat Clear Calc 41.1 Estimated GFR 59 Random Glucose 116 H Calcium 8.9 Troponin I High Sens 3.2 2.9 B-Natriuretic Peptide 88 Lipase 30 Urine Color Urine Appearance Urine pH Ur Specific [place] Urine Protein Urine Glucose (UA) Urine Ketones Urine Blood Urine Nitrite Ur Leukocyte Esterase Urine RBC Urine WBC Ur Squamous Epith Cells Urine Bacteria Hyaline Casts Influenza Type A (PCR) NEGATIVE Influenza Type B (PCR) NEGATIVE RSV RNA Qual (PCR) NEGATIVE SARS-CoV-2 RNA (RT-PCR) NEGATIVE 02/21/24 22:06 MCV MCH MCHC RDW Plt Count MPV Immature Gran % (Auto) Neut % (Auto) Lymph % (Auto) [place] % (Auto) Eos % (Auto) Baso % (Auto) Lymph # (Auto) [place] # (Auto) Eos # (Auto) Baso # (Auto) Abs Immat Gran (auto) Absolute Neuts (auto) Absolute Nucleated RBC Nucleated RBC % (auto) Smear Tech's Comments Anion Gap Estim Creat Clear Calc Estimated GFR Random Glucose Calcium Troponin I High Sens B-Natriuretic Peptide Lipase Urine Color Yellow Urine Appearance Cloudy Urine pH 7.0 Ur Specific [place] 1.020 Urine Protein >=1000 (4+) H Urine Glucose (UA) Negative Urine Ketones Negative Urine Blood Moderate (2+) H Urine Nitrite Negative Ur Leukocyte Esterase Moderate (2+) H Urine RBC >20 H Urine WBC >50 H Ur Squamous Epith Cells >20 Urine Bacteria 4+ Hyaline Casts 6-10 Influenza Type A (PCR) Influenza Type B (PCR) RSV RNA Qual (PCR) SARS-CoV-2 RNA (RT-PCR) Imaging Radiologist's Impressions: Impressions Chest X-Ray 02/21/24 19:25 IMPRESSION: No acute cardiopulmonary process. Assessment and Plan (1) Chest pain: Qualifiers: Chest pain type: unspecified Qualified Code(s): R07.9 - Chest pain, unspecified Status: Acute (2) Hyperlipidemia: Qualifiers: Hyperlipidemia type: unspecified Qualified Code(s): E78.5 - Hyperlipidemia, unspecified Status: Acute (3) Anxiety: Status: Acute (4) Hypertension: Qualifiers: Hypertension type: unspecified Qualified Code(s): I10 - Essential (primary) hypertension Status: Acute Plan Jelly Pope is a 78 years old woman admitted with: Chest pain, currently asymptomatic. T-wave inversions V3-V6. Admit to hospitalist service. Telemetry. Continue ASA, beta-livier and statin. Check hemoglobin A1c and lipid panel. Cardiology consult. Hyperlipidemia. Continue statin. Essential hypertension. Patient arrived with significant hypertension that improved after amlodipine and labetalol given in ED. Metoprolol and losartan. Anxiety and depression. Continue sertraline, trazodone and losartan. Presumed UTI. Start ceftriaxone. Urine culture pending. DVT prophylaxis: Lovenox Code status: Full Patient will need hospitalization for at least 2 midnights for chest pain management and treatment she will need close cardiac and vital signs as well as Cardiology evaluation. Quality Stroke Does the patient have a stroke diagnosis?: No VTE Prior VTE?: No VTE Risk Level:: Medical - moderate - high VTE Device Contraindication: Treatment Not Indicated VTE Drug Contraindication: N/A - Med Ordered
[2024-02-22] VITALS (8 sets, daily range): BP systolic 153–195; BP diastolic 68–91; PULSE 70–78; RESP 16–18; TEMP 36.4–36.8; O2SAT 94–98; BMI 23.8
--- NOTE | 2024-02-22 | ECG_ITS ---
Test Reason : ABNORMAL EKG Blood Pressure : / mmHG Vent. Rate : 074 BPM Atrial Rate : 074 BPM P-R Int : 140 ms QRS Dur : 078 ms QT Int : 412 ms P-R-T Axes : 049 021 124 degrees QTc Int : 457 ms Normal sinus rhythm T wave abnormality, consider anterolateral ischemia Abnormal ECG When compared with ECG of 21-FEB-2024 21:23, No significant change was found Referred By: Homer Nguyễn Electronically Signed By:Nic Crowell
[2024-02-22] MEDS: Atorvastatin Calcium 40 MG TABLET PO (00:18)
[2024-02-22] MEDS: Acetaminophen 325 MG TABLET 650 MG PO (00:18)
[2024-02-22] MEDS: clonazePAM 0.5 MG TABLET PO (00:19)
--- NOTE | 2024-02-22 00:20 | PC.NURSE ---
pt reported feeling anxious and 4/10 headache which she usually takes tylenol for. pt reports she does not have an allergy to tylenol; pharmacy aware. prn klonopin provided for anxiety. pt tolerated well with water. pt reports has not eaten all day; requested pudding and water refused other options. nad. warm blanket provided. call nguyen within reach.
--- NOTE | 2024-02-22 01:00 | PC.NURSE ---
no blood cultures needed per Dr. Frantz Collins.
[2024-02-22] MEDS: cefTRIAXone sodium 1 GM in 0.9 % Sodium Chloride 50 ML IV (02:03)
[2024-02-22] MEDS: 0.9 % Sodium Chloride Flush 3 ML SYRINGE IVFLUSH ×2 (02:04→08:32)
[2024-02-22 06:26] LABS: MANUAL DIFF FLAG NO
[2024-02-22 06:49] LABS: Basophils Percent Auto 0.1 % (0-2); Eosinophils Absolute Auto 0.1 X10*3/uL (0.0-0.4); Eosinophils Percent Auto 1.2 % (0-4); Hematocrit 38.3 % (37.0-47.0); Hemoglobin 12.7 g/dl (12.0-16.0); Imm Gran Abs Auto 0.04 X10*3/uL (0.00-0.03); Imm Gran Pct Auto 0.5 % (0.0-0.4); Lymphocytes Absolute Auto 0.9 X10*3/uL (1.2-4.9); Lymphocytes Percent Auto 11.2 % (20-40); Mean Corpuscular HGB Conc 33.2 g/dl (31.0-35.0); Mean Corpuscular Hemoglobin 29.1 pg (27.0-33.0); Mean Corpuscular Volume 87.8 fL (80.0-98.0); Mean Platelet Volume 10.3 fL (9.4-12.3); Monocytes Absolute Auto 0.6 X10*3/uL (0.1-1.2); Platelet Count 293 X10*3/uL (160-400); Red Blood Count 4.36 X10*6/uL (4.20-5.50); Red Cell Distribution Width 13.2 % (11.0-16.0); Troponin-I High Sensitivity 3.1 ng/L (<3.5-17.0); White Blood Count 7.6 X10*3/uL (4.8-10.8)
[2024-02-22 07:00] LABS: Alanine Aminotransferase 20 U/L (0-31); Albumin Level 2.6 g/dL (3.5-5.0); Alkaline Phosphatase 83 U/L (39-117); Anion Gap 12 (12-20); Aspartate Amino Transferase 28 U/L (5-31); Bilirubin Total 0.4 mg/dL (0.0-1.0); Blood Urea Nitrogen 11 mg/dL (9-16); Calcium 8.2 mg/dL (8.4-10.2); Carbon Dioxide 26 mmol/L (22-29); Chloride 106 mmol/L (96-108); Cholesterol 206 mg/dL (<200); Creatinine Clr Calc Pharmacy 41.1; Estimated Glomerular Filt Rate 59; Glucose Random 74 mg/dL (60-115); HDL Cholesterol 40 mg/dL (>40); Potassium 3.7 mmol/L (3.3-5.1); Sodium 140 mmol/L (135-145); Total Protein 5.2 g/dL (6.5-8.0)
--- NOTE | 2024-02-22 07:00 | CA_ITS ---
Transthoracic Echocardiogram Patient (Last, First, Middle): Jelly Pope, Gender: Female Date of : 1945 Age: 78 Procedure Date: 02/22/2024 Procedure Type: Transthoracic Echocardiogram Location: ER Height: 157.48 cm Weight: 58.06 kg BSA: 1.58 m2 Heart Rate: 73 bpm BP: 193 / 75 mmHg Rivet Bucker: CANDIDO Referring MD: Halina Collins MD Symptoms: chest pain, t wave invesions Study Quality: Fair ECG Rhythm: Sinus Conclusions: - Normal left ventricular size, thickness, systolic function, and wall motion. The visually estimated ejection fraction is between 65-70%. Abnormal diastolic function is noted. Spectral Doppler is indicative of an impaired relaxation filling pattern. Elevated filling pressures. - Normal right ventricular cavity size and systolic function. Findings Left Ventricle Normal left ventricular size, thickness, systolic function, and wall motion. The visually estimated ejection fraction is between 65-70%. Abnormal diastolic function is noted. Spectral Doppler is indicative of an impaired relaxation filling pattern. Elevated filling pressures. Right Ventricle Normal right ventricular cavity size and systolic function. Atria The left atrium is normal in size. The right atrium is normal in size. Aortic Valve Normal aortic valve structure and function. There is no aortic valve stenosis. There is no aortic valve regurgitation. Mitral Valve Normal mitral valve structure and function. There is trace mitral valve regurgitation. There is no mitral valve stenosis. Pulmonic Valve The pulmonic valve is normal. There is trace pulmonic valve regurgitation. Tricuspid Valve Normal tricuspid valve structure. There is no tricuspid valve regurgitation. Tricuspid regurgitation envelope is inadequate for calculation of right ventricular systolic pressure. Normal right atrial pressure. Great Vessels All visible segments of the aorta are normal in size. Venous The inferior vena cava is normal in size and collapses greater than 50% with inspiration. Pericardium/Pleural There is no evidence of pericardial effusion. Prior Study Comparison Changes noted compared to prior study dated: 12/31/2018. Elevated filling pressures. no RWMA. Measurements 2D Linear Measurements IVSd: 0.78 0.6-0.9/0.6-1.0 cm LVIDd: 3.95 3.9-5.3/4.2-5.9 cm LVIDd Index: 2.50 2.4-3.2/2.2-3.1 cm/m2 LVIDs: 1.72 2.0-3.6 cm LVPWd: 1.08 0.7-1.1 cm LA Diam: 2.60 2.7-3.8/3.0-4.0 cm LAIDs Index: 1.65 1.5-2.3 cm/m2 LV Mass: 140.29 67-162/88-224 g LV Mass Index: 88.79 43-95/49-115 g/m2 LVOT Diam: 1.80 3.0+(-)1.3 cm 2D Systolic Function EF 4C: 71.20 >55% EF 2C: 69.90 >55% EF BiP: 70.70 >55% Mitral Valve MV Pk E: 1.03 MV PK A: 1.01 MV Decel Time: 157.00 E/A: 1.00 E'Lateral: 7.62 E'Medial: 6.74 E/E' Med: 15.30 E/E' Lat: 13.50 PHT: 46.00 MVA PHT: 4.78 Decel [place]: 6.57 Aortic Valve AoV Pk Jf: 1.33 AoV Mn Jf: 0.98 AoV VTI: 0.31 AoV Pk Grad: 7.00 Aov Mn Grad: 4.00 SUNIL Cont.VTI: 2.05 LVOT LVOT Pk Jf: 1.06 LVOT Mn Jf: 0.75 LVOT VTI: 0.25 LVOT Pk Grad: 4.00 LVOT Mn Grad: 3.00 LVOT Diam: 1.80 LVOT Area: 2.54 Diastolic Function MV Pk E: 1.03 MV Pk A: 1.01 E/A: 1.00 E'Medial: 6.74 E/E' Med: 15.30 E' Laterial: 7.62 E/E' Lat: 13.50 Right Ventricle TAPSE (mm): 19.10 TVS' Jf: 11.00 Tricuspid Valve RA Press: 3.00 Great Vessels Aorta Sinus of Valsalva: 3.10 2.0-3.5 cm Ao Asc: 3.00 2.1-3.4 cm Pulmonary Valve PV Pk Jf: 0.92 Peak PV Grad: 3.00 Updated in Other Vendor System with Status of Final Nic Crowell MD electronically signed on 02/22/2024 2:08:18 PM with status of Final
[2024-02-22 07:13] LABS: Thyroid Stimulating Hormone 8.02 uIU/mL (0.32-4.0)
[2024-02-22 07:25] LABS: LDL Cholesterol Calculated 122 mg/dL (<100); Triglycerides 224 mg/dL (<150)
--- NOTE | 2024-02-22 07:40 | PC.NURSE ---
this RN resumed care of pt at this time. a&ox4. vss and up to date. inverted T waves still noted on title manager at this time. pt has no acute complaints. denies pain at this time. no sob/wob noted while conversating. respirations even and unlabored. pt sitting upright eating breakfast/in no apparent distress at this time. pt waiting for echocardiogram to be completed. pt waiting for bed assignment as well. plan of care ongoing. call nguyen placed within reach.
[2024-02-22 08:05] LABS: Estimated Average Glucose 111 mg/dL; Hemoglobin A1c % 5.5 % (<6.0)
[2024-02-22] MEDS: Metoprolol Succinate ER 100 MG TAB.ER.24H 200 MG PO (08:33)
[2024-02-22] MEDS: Losartan Potassium 50 MG TABLET 100 MG PO (08:33)
[2024-02-22] MEDS: Aspirin Enteric Coated 81 MG TABLET.DR PO (08:33)
[2024-02-22] MEDS: Sertraline HCL 100 MG TABLET PO (08:33)
--- NOTE | 2024-02-22 08:34 | PC.NURSE ---
medication administered per provider order.
--- NOTE | 2024-02-22 09:47 | PHA.MEDREC ---
Pharmacy Consult ? Medication Reconciliation Pharmacy has completed the medication reconciliation. Spoke to patient via spanish interpreter and confirmed medication list.
--- NOTE | 2024-02-22 10:15 | PC.NURSE ---
vss and up to date. inverted T waves still present on the radiographer cardiac catheterization. pt resting comfortably in no apparent distress at this time while watching tv. respirations remain even and unlabored. pt waiting for bed assignment. call nguyen placed within reach.
--- NOTE | 2024-02-22 12:22 | HO.PM.IMPN ---
Subjective Subjective Date of Service: 02/22/24 Interval History: chest pain,ekg changes Review of Systems she denies any chest pain Physical Exam Vital Signs: Vital Signs: Last Vital Signs Temp 98.0 F 02/22/24 10:14 Pulse 77 02/22/24 10:14 Resp 18 02/22/24 10:14 BP 167/73 H 02/22/24 10:14 Pulse Ox 95 02/22/24 10:14 O2 Del Method Room Air 02/22/24 10:14 BMI result Body Mass Index 23.6 Objective Data Active Medications Acetaminophen (Acetaminophen 325 Mg Tablet) 650 mg PO Q6H PRN PRN Reason: Pain, Mild (Pain Scale 1-3) Last Admin: 02/22/24 00:18 Dose: 650 mg Documented By: STEPHANIE Albuterol Sulfate (Albuterol Sulfate 90 Mcg 8 Gm Inhaler) 2 puff INHALE Q4H PRN PRN Reason: wheezing Aspirin (Aspirin Enteric Coated 81 Mg Tablet.) 81 mg PO DAILY [facility] Last Admin: 02/22/24 08:33 Dose: 81 mg Documented By: GAVIOTA Atorvastatin Calcium (Atorvastatin Calcium 40 Mg Tablet) 40 mg PO BEDTIME [facility] Last Admin: 02/22/24 00:18 Dose: 40 mg Documented By: STEPHANIE Clonazepam (Clonazepam 0.5 Mg Tablet) 0.5 mg PO DAILY PRN PRN Reason: Anxiety Last Admin: 02/22/24 00:19 Dose: 0.5 mg Documented By: STEPHANIE Enoxaparin Sodium (Enoxaparin Sodium 40 Mg/0.4 Ml Syringe) 40 mg SUBCUT Q24H [facility] Last Admin: 02/21/24 23:52 Dose: Not Given Documented By: STEPHANIE Non-Admin Reason: Patient Refused Fluticasone Propionate (Fluticasone Propionate Nasal 16 Gm [place]) 1 spray NOSTRIL-B BID [facility] Ceftriaxone Sodium 1 gm/ (Sodium Chloride) 50 mls @ 100 mls/hr IV Q24H [facility] Last Infusion: 02/22/24 02:35 Dose: Infused Documented By: STEPHANIE Loratadine (Loratadine 10 Mg Tablet) 10 mg PO DAILY [facility] Losartan Potassium (Losartan Potassium 50 Mg Tablet) 100 mg PO DAILY [facility]; Protocol Last Admin: 02/22/24 08:33 Dose: 100 mg Documented By: GAVIOTA Metoprolol Succinate (Metoprolol Succinate Er 100 Mg Tab.Er.24h) 200 mg PO DAILY [facility]; Protocol Last Admin: 02/22/24 08:33 Dose: 200 mg Documented By: GAVIOTA Nitroglycerin (Nitroglycerin 0.4 Mg Tab.Subl) 0.4 mg SUBLINGUAL Q5MX3 PRN PRN Reason: Chest Pain Sertraline HCl (Sertraline Hcl 100 Mg Tablet) 100 mg PO DAILY [facility] Last Admin: 02/22/24 08:33 Dose: 100 mg Documented By: GAVIOTA Sodium Chloride (0.9 % Sodium Chloride Flush 3 Ml Syringe) 3 ml IVFLUSH QSHIFT [facility] Last Admin: 02/22/24 08:32 Dose: 3 ml Documented By: GAVIOTA Trazodone HCl (Trazodone Hcl 50 Mg Tablet) 50 mg PO BEDTIME PRN PRN Reason: Insomnia Labs 02/22/24 05:11 02/22/24 05:11 Labs: Laboratory Results - last 24 hr 02/21/24 02/21/24 02/21/24 17:02 17:35 21:39 MCV 86.9 MCH 29.8 MCHC 34.3 RDW 13.0 Plt Count 302 MPV 10.1 Immature Gran % (Auto) 0.4 Neut % (Auto) 90.4 H Lymph % (Auto) 3.6 L [place] % (Auto) 4.2 Eos % (Auto) 1.1 Baso % (Auto) 0.3 Lymph # (Auto) 0.4 L [place] # (Auto) 0.5 Eos # (Auto) 0.1 Baso # (Auto) 0.0 Abs Immat Gran (auto) 0.05 H Absolute Neuts (auto) 10.4 H Absolute Nucleated RBC 0.000 Nucleated RBC % (auto) 0.0 Smear Tech's Comments VERIFIED Anion Gap 11 L Estim Creat Clear Calc 41.1 Estimated GFR 59 Random Glucose 116 H Estimat Average Glucose Hemoglobin A1c % Calcium 8.9 Total Bilirubin AST ALT Alkaline Phosphatase Troponin I High Sens 3.2 2.9 B-Natriuretic Peptide 88 Total Protein Albumin Triglycerides Cholesterol LDL Cholesterol, Calc HDL Cholesterol Lipase 30 TSH Urine Color Urine Appearance Urine pH Ur Specific [place] Urine Protein Urine Glucose (UA) Urine Ketones Urine Blood Urine Nitrite Ur Leukocyte Esterase Urine RBC Urine WBC Ur Squamous Epith Cells Urine Bacteria Hyaline Casts Influenza Type A (PCR) NEGATIVE Influenza Type B (PCR) NEGATIVE RSV RNA Qual (PCR) NEGATIVE SARS-CoV-2 RNA (RT-PCR) NEGATIVE 02/21/24 02/22/24 02/22/24 22:06 05:11 05:11 MCV 87.8 MCH 29.1 MCHC 33.2 RDW 13.2 Plt Count 293 MPV 10.3 Immature Gran % (Auto) 0.5 H Neut % (Auto) 79.0 H Lymph % (Auto) 11.2 L [place] % (Auto) 8.0 Eos % (Auto) 1.2 Baso % (Auto) 0.1 Lymph # (Auto) 0.9 L [place] # (Auto) 0.6 Eos # (Auto) 0.1 Baso # (Auto) 0.0 Abs Immat Gran (auto) 0.04 H Absolute Neuts (auto) 6.0 Absolute Nucleated RBC 0.000 Nucleated RBC % (auto) 0.0 Smear Tech's Comments Anion Gap 12 Estim Creat Clear Calc 41.1 Estimated GFR 59 Random Glucose 74 Estimat Average Glucose 111 Hemoglobin A1c % 5.5 Calcium 8.2 L D Total Bilirubin 0.4 AST 28 ALT 20 Alkaline Phosphatase 83 Troponin I High Sens 3.1 B-Natriuretic Peptide Total Protein 5.2 L Albumin 2.6 L Triglycerides 224 H Cancelled Cholesterol 206 H LDL Cholesterol, Calc HDL Cholesterol Lipase TSH Urine Color Yellow Urine Appearance Cloudy Urine pH 7.0 Ur Specific [place] 1.020 Urine Protein >=1000 (4+) H Urine Glucose (UA) Negative Urine Ketones Negative Urine Blood Moderate (2+) H Urine Nitrite Negative Ur Leukocyte Esterase Moderate (2+) H Urine RBC >20 H Urine WBC >50 H Ur Squamous Epith Cells >20 Urine Bacteria 4+ Hyaline Casts 6-10 Influenza Type A (PCR) Influenza Type B (PCR) RSV RNA Qual (PCR) SARS-CoV-2 RNA (RT-PCR) 02/22/24 02/22/24 02/22/24 05:11 05:11 05:11 MCV MCH MCHC RDW Plt Count MPV Immature Gran % (Auto) Neut % (Auto) Lymph % (Auto) [place] % (Auto) Eos % (Auto) Baso % (Auto) Lymph # (Auto) [place] # (Auto) Eos # (Auto) Baso # (Auto) Abs Immat Gran (auto) Absolute Neuts (auto) Absolute Nucleated RBC Nucleated RBC % (auto) Smear Tech's Comments Anion Gap Estim Creat Clear Calc Estimated GFR Random Glucose Estimat Average Glucose Hemoglobin A1c % Calcium Total Bilirubin AST ALT Alkaline Phosphatase Troponin I High Sens B-Natriuretic Peptide Total Protein Albumin Triglycerides Cholesterol Cancelled LDL Cholesterol, Calc 122 H Cancelled HDL Cholesterol 40 L Cancelled Lipase TSH 8.02 H Urine Color Urine Appearance Urine pH Ur Specific [place] Urine Protein Urine Glucose (UA) Urine Ketones Urine Blood Urine Nitrite Ur Leukocyte Esterase Urine RBC Urine WBC Ur Squamous Epith Cells Urine Bacteria Hyaline Casts Influenza Type A (PCR) Influenza Type B (PCR) RSV RNA Qual (PCR) SARS-CoV-2 RNA (RT-PCR) Quality Stroke Does the patient have a stroke diagnosis?: No VTE Prior VTE?: No VTE Risk Level:: Medical - moderate - high VTE Device Contraindication: Treatment Not Indicated VTE Drug Contraindication: N/A - Med Ordered
--- NOTE | 2024-02-22 12:22 | PM.CNCAR ---
History of Present Illness History of Present Illness Date of Service: 02/22/24 Requesting physician: Homer Nguyễn Chief complaint: Unstable angina Narrative: [age] year female who has a patient of Dr. Lazcano. She is presenting with chest discomfort and elevated blood pressures. She is saying that she has been taking her to antihypertensive medications but apparently was supposed to be on 3 and her blood pressure was elevated at home. At 1 time blood pressure was more than 200 systolic. She was getting some chest pains over the last few days and decided come to the ER for this issue. She describes a tightness in her chest. She has precordial T-wave inversions. Troponins are negative. She said that since she had chest discomfort she was very anxious and felt like heart was racing. She does have anxiety and takes clonazepam as needed. She said she had stress test scheduled but she has anxiety when she came to the office to the hospital and did not do the stress test. Labs reviewed. EKG reviewed. [facility] Past Medical History Medical History (Updated 02/22/24 @ 12:25 by Nic Crowell MD) Chronic leg pain Anxiety Hyperlipidemia Hypertension Social History Social History Alcohol intake: never Patient Tobacco Use Status: Never used Tobacco Smoked in Last 30 Days: No Use of substances other than those prescribed or required for medical reasons: No Advance Directives: No Advance Directives Information Provided: No Nutrition Risks: No Nutritional Risk Meds Allergies Allergy/AdvReac Type Severity Reaction Status Date / Time ibuprofen [From MOTRIN] Allergy Unknown DIZZINESS Verified 02/21/24 23:51 oxycodone [Percocet] Allergy Unknown Unknown Verified 02/21/24 23:51 From PERCOCET Allergy Unknown NAUSEA & Uncoded 02/21/24 23:51 VOMITING,DIZZINESS MOTRIN Allergy Unknown GASTRIC Uncoded 02/21/24 23:51 UPSET Active Medications: Current Medications Acetaminophen (Acetaminophen 325 Mg Tablet) 650 mg PO Q6H PRN PRN Reason: Pain, Mild (Pain Scale 1-3) Last Admin: 02/22/24 00:18 Dose: 650 mg Albuterol Sulfate (Albuterol Sulfate 90 Mcg 8 Gm Inhaler) 2 puff INHALE Q4H PRN PRN Reason: wheezing Aspirin (Aspirin Enteric Coated 81 Mg Tablet.) 81 mg PO DAILY [facility] Last Admin: 02/22/24 08:33 Dose: 81 mg Atorvastatin Calcium (Atorvastatin Calcium 40 Mg Tablet) 40 mg PO BEDTIME [facility] Last Admin: 02/22/24 00:18 Dose: 40 mg Clonazepam (Clonazepam 0.5 Mg Tablet) 0.5 mg PO DAILY PRN PRN Reason: Anxiety Last Admin: 02/22/24 00:19 Dose: 0.5 mg Enoxaparin Sodium (Enoxaparin Sodium 40 Mg/0.4 Ml Syringe) 40 mg SUBCUT Q24H [facility] Last Admin: 02/21/24 23:52 Dose: Not Given Fluticasone Propionate (Fluticasone Propionate Nasal 16 Gm [place]) 1 spray NOSTRIL-B BID [facility] Ceftriaxone Sodium 1 gm/ (Sodium Chloride) 50 mls @ 100 mls/hr IV Q24H [facility] Last Infusion: 02/22/24 02:35 Dose: Infused Loratadine (Loratadine 10 Mg Tablet) 10 mg PO DAILY [facility] Losartan Potassium (Losartan Potassium 50 Mg Tablet) 100 mg PO DAILY [facility]; Protocol Last Admin: 02/22/24 08:33 Dose: 100 mg Metoprolol Succinate (Metoprolol Succinate Er 100 Mg Tab.Er.24h) 200 mg PO DAILY [facility]; Protocol Last Admin: 02/22/24 08:33 Dose: 200 mg Nitroglycerin (Nitroglycerin 0.4 Mg Tab.Subl) 0.4 mg SUBLINGUAL Q5MX3 PRN PRN Reason: Chest Pain Sertraline HCl (Sertraline Hcl 100 Mg Tablet) 100 mg PO DAILY [facility] Last Admin: 02/22/24 08:33 Dose: 100 mg Sodium Chloride (0.9 % Sodium Chloride Flush 3 Ml Syringe) 3 ml IVFLUSH QSHIFT [facility] Last Admin: 02/22/24 08:32 Dose: 3 ml Trazodone HCl (Trazodone Hcl 50 Mg Tablet) 50 mg PO BEDTIME PRN PRN Reason: Insomnia Home Medications Medication Instructions Recorded Confirmed Last Taken Type aspirin 81 mg tablet,delayed 81 mg PO QAM 02/21/24 02/22/24 02/21/24 History release atorvastatin 40 mg tablet 40 mg BEDTIME 02/21/24 02/22/24 02/21/24 History clonazepam 0.5 mg tablet 0.5 mg PO DAILY PRN Anxiety 02/21/24 02/21/24 Unknown History fluticasone propionate 50 1 spray intranasal BID 02/21/24 02/22/24 Unknown History mcg/actuation nasal spray,suspension losartan 100 mg tablet 100 mg DAILY 02/21/24 02/22/24 02/21/24 History metoprolol succinate 200 mg 200 mg PO DAILY 02/21/24 02/22/24 02/21/24 History tablet,extended release 24 hr sertraline 100 mg tablet 100 mg PO QAM 02/21/24 02/22/24 02/21/24 History trazodone 50 mg tablet 50 mg PO BEDTIME PRN Insomnia 02/21/24 02/21/24 Unknown History albuterol sulfate 90 mcg/actuation 2 puff inhalation Q4H PRN wheezing 02/22/24 02/22/24 Unknown History aerosol inhaler (Ventolin HFA) loratadine 10 mg tablet 10 mg PO DAILY 02/22/24 02/22/24 02/21/24 History multivitamin 1 tab PO DAILY 02/22/24 02/22/24 02/21/24 History tramadol 50 mg tablet 50 mg PO Q12H PRN pain 02/22/24 02/22/24 Unknown History Physical Exam Vital Signs: Vital Signs: Last Vital Signs Temp 98.0 F 02/22/24 10:14 Pulse 77 02/22/24 10:14 Resp 18 02/22/24 10:14 BP 167/73 H 02/22/24 10:14 Pulse Ox 95 02/22/24 10:14 O2 Del Method Room Air 02/22/24 10:14 BMI result Body Mass Index 23.6 GENERAL APPEARANCE: in no acute distress, pleasant. Anxious appearing. NECK: no carotid bruit, no jugular venous distention. SKIN: no suspicious lesions, warm and dry. HEART: no murmurs, regular rate and rhythm. LUNGS: clear to auscultation bilaterally. ABDOMEN: soft, nontender. EXTREMITIES: no edema. PERIPHERAL PULSES: equal. NEUROLOGIC: No gross deficits, AAO X 3 Objective Labs and Meds 02/22/24 05:11 02/22/24 05:11 Lab results: Laboratory Results - last 24 hr 02/21/24 02/21/24 02/21/24 17:02 17:35 21:39 WBC 11.6 H RBC 4.73 D Hgb 14.1 D Hct 41.1 D MCV 86.9 MCH 29.8 MCHC 34.3 RDW 13.0 Plt Count 302 MPV 10.1 Immature Gran % (Auto) 0.4 Neut % (Auto) 90.4 H Lymph % (Auto) 3.6 L [place] % (Auto) 4.2 Eos % (Auto) 1.1 Baso % (Auto) 0.3 Lymph # (Auto) 0.4 L [place] # (Auto) 0.5 Eos # (Auto) 0.1 Baso # (Auto) 0.0 Abs Immat Gran (auto) 0.05 H Absolute Neuts (auto) 10.4 H Absolute Nucleated RBC 0.000 Nucleated RBC % (auto) 0.0 Smear Tech's Comments VERIFIED Sodium 138 Potassium 3.9 Chloride 106 Carbon Dioxide 25 Anion Gap 11 L BUN 12 Creatinine 0.92 Estim Creat Clear Calc 41.1 Estimated GFR 59 Random Glucose 116 H Estimat Average Glucose Hemoglobin A1c % Calcium 8.9 Total Bilirubin AST ALT Alkaline Phosphatase Troponin I High Sens 3.2 2.9 B-Natriuretic Peptide 88 Total Protein Albumin Triglycerides Cholesterol LDL Cholesterol, Calc HDL Cholesterol Lipase 30 TSH Urine Color Urine Appearance Urine pH Ur Specific [place] Urine Protein Urine Glucose (UA) Urine Ketones Urine Blood Urine Nitrite Ur Leukocyte Esterase Urine RBC Urine WBC Ur Squamous Epith Cells Urine Bacteria Hyaline Casts Influenza Type A (PCR) NEGATIVE Influenza Type B (PCR) NEGATIVE RSV RNA Qual (PCR) NEGATIVE SARS-CoV-2 RNA (RT-PCR) NEGATIVE 02/21/24 02/22/24 02/22/24 22:06 05:11 05:11 WBC 7.6 RBC 4.36 Hgb 12.7 Hct 38.3 MCV 87.8 MCH 29.1 MCHC 33.2 RDW 13.2 Plt Count 293 MPV 10.3 Immature Gran % (Auto) 0.5 H Neut % (Auto) 79.0 H Lymph % (Auto) 11.2 L [place] % (Auto) 8.0 Eos % (Auto) 1.2 Baso % (Auto) 0.1 Lymph # (Auto) 0.9 L [place] # (Auto) 0.6 Eos # (Auto) 0.1 Baso # (Auto) 0.0 Abs Immat Gran (auto) 0.04 H Absolute Neuts (auto) 6.0 Absolute Nucleated RBC 0.000 Nucleated RBC % (auto) 0.0 Smear Tech's Comments Sodium 140 Potassium 3.7 Chloride 106 Carbon Dioxide 26 Anion Gap 12 BUN 11 Creatinine 0.92 Estim Creat Clear Calc 41.1 Estimated GFR 59 Random Glucose 74 Estimat Average Glucose 111 Hemoglobin A1c % 5.5 Calcium 8.2 L D Total Bilirubin 0.4 AST 28 ALT 20 Alkaline Phosphatase 83 Troponin I High Sens 3.1 B-Natriuretic Peptide Total Protein 5.2 L Albumin 2.6 L Triglycerides 224 H Cancelled Cholesterol 206 H LDL Cholesterol, Calc HDL Cholesterol Lipase TSH Urine Color Yellow Urine Appearance Cloudy Urine pH 7.0 Ur Specific [place] 1.020 Urine Protein >=1000 (4+) H Urine Glucose (UA) Negative Urine Ketones Negative Urine Blood Moderate (2+) H Urine Nitrite Negative Ur Leukocyte Esterase Moderate (2+) H Urine RBC >20 H Urine WBC >50 H Ur Squamous Epith Cells >20 Urine Bacteria 4+ Hyaline Casts 6-10 Influenza Type A (PCR) Influenza Type B (PCR) RSV RNA Qual (PCR) SARS-CoV-2 RNA (RT-PCR) 02/22/24 02/22/24 02/22/24 05:11 05:11 05:11 WBC RBC Hgb Hct MCV MCH MCHC RDW Plt Count MPV Immature Gran % (Auto) Neut % (Auto) Lymph % (Auto) [place] % (Auto) Eos % (Auto) Baso % (Auto) Lymph # (Auto) [place] # (Auto) Eos # (Auto) Baso # (Auto) Abs Immat Gran (auto) Absolute Neuts (auto) Absolute Nucleated RBC Nucleated RBC % (auto) Smear Tech's Comments Sodium Potassium Chloride Carbon Dioxide Anion Gap BUN Creatinine Estim Creat Clear Calc Estimated GFR Random Glucose Estimat Average Glucose Hemoglobin A1c % Calcium Total Bilirubin AST ALT Alkaline Phosphatase Troponin I High Sens B-Natriuretic Peptide Total Protein Albumin Triglycerides Cholesterol Cancelled LDL Cholesterol, Calc 122 H Cancelled HDL Cholesterol 40 L Cancelled Lipase TSH 8.02 H Urine Color Urine Appearance Urine pH Ur Specific [place] Urine Protein Urine Glucose (UA) Urine Ketones Urine Blood Urine Nitrite Ur Leukocyte Esterase Urine RBC Urine WBC Ur Squamous Epith Cells Urine Bacteria Hyaline Casts Influenza Type A (PCR) Influenza Type B (PCR) RSV RNA Qual (PCR) SARS-CoV-2 RNA (RT-PCR) Imaging Radiologist's impression: Impressions Chest X-Ray 02/21/24 19:25 IMPRESSION: No acute cardiopulmonary process. Assessment and Plan (1) Unstable angina: Status: Acute (2) Hypertension: Qualifiers: Hypertension type: unspecified Qualified Code(s): I10 - Essential (primary) hypertension Status: Acute Plan 78-year-old female who is presenting for chest pain and elevated blood pressures. She has precordial T-wave inversions concerning for LAD territory ischemia. Blood pressure is improving after addition of amlodipine 10 mg daily. This should be continued going forward along with her losartan 100 mg and metoprolol succinate 200 mg daily. She has been started on heparin drip for unstable angina. Continue baby aspirin as before. I have discussed the case with Dr. Perez at [facility] and we will transfer her for potential diagnostic cardiac catheterization. This will potentially be done by tomorrow. She should be NPO after midnight. Close blood pressure monitoring. Thank you for allowing me to participate in the care of your patient. Please feel free to contact me if you have any questions. Procedures Date of Service Date of Service: 02/22/24
--- NOTE | 2024-02-22 12:34 | P.DS_ITS ---
DS: Providers Provider Date of Service: 02/22/24 Date of admission: 02/21/24 23:06 Date of discharge: 02/22/24 Primary care physician: Anshu Mayo MD Consults: 02/21/24 23:10 Consult to Cardiology Routine Consulting Provider: [facility] [place] Cardiovascular Services Reason for consultation: chest pain, T waves changes Has provider been notified: Yes Attending physician on discharge: Homer Nguyễn Discharging clinician: Homer Nguyễn DS: Diagnosis Discharge Diagnosis (1) Unstable angina: Status: Acute (2) Hypertension: Status: Acute DS: Summary Hospital Course Hospital Course: 78 y/o woman with past medical history significant for hypertension, hyperlipidemia and anxiety was brought to the emergency department due to chest pain. Patient stated that the chest pain started this morning. She localizes it in the lower mid chest and described it as a pressure. It does radiate to the epigastrium. She stated that she has been experiencing chest pain over the last several months. These episodes are self-limited and usually lasts for 10 minutes. Chest pain is occuring at rest and exertion. Associated symptoms she complains of shortness on breath and nausea. She mentioned that this morning she had an event of diarrhea. Denied cough, vomiting, fever or chills. Denied any acute urinary changes. She denies history of coronary artery disease, congestive heart failure, stroke or diabetes mellitus. She denies tobacco smoking, alcohol abuse or illicit drug use. In the ED, she was initially found to have a blood pressure of 202/73 and some tachypnea. There is no tachycardia and O2 sat normal on room air. Blood workup is remarkable for slow leukocytosis. Hemoglobin is 14.1. There are no electrolyte imbalances. Renal function is normal. Troponin x2 is negative. BNP is 88. Lipase is 30. Urinalysis showed finding of urinary tract infection. ECG showed T-wave inversions from V3 to V6. CXR is negative. ED Tx: Amlodipine 10 mg p.o., labetalol 100 mg p.o. Hospital course: Patient came to the hospital because of chest pain, found to have EKG changes T- wave inversions(from v3-to v6),cxr negative , troponin also negative-patient is on aspirin, statin, metoprolol added IV heparin, echo also ordered. Patient was seen by Cardiology -recommended to transfer to [facility] for further cardiac workup including cardiac catheterization. Continue heparin drip with PT PTT protocol. Patient is currently chest pain free. Patient was also show thought to be presumed UTI-started on IV ceftriaxone, urine culture pending, currently patient denies urinary complaints. Patient will be going to [facility] today. plan: continue aspirin,statin,heparin drip, moniter with PT PTT protocol. transfer to [facility] for further cardiac workup including cardiac catheterization. presumed UTI-started on IV ceftriaxone, urine culture pending, currently patient denies urinary complaints. Above management discussed with the patient detail length she understand and agreement with the above plan, time spent 40 minute. Time Attestation Total time managing care of this patient today: 40 mintues. Discharge Coordination Time (in mins): 40 min Quality: Safe Use of Opioids Does Pt have an Active Cancer Diagnosis on the Problem List?: No Quality: Stroke Does the patient have a stroke diagnosis?: No Physical Exam Vital Signs: Vital Signs: Last Vital Signs Temp 98.0 F 02/22/24 10:14 Pulse 77 02/22/24 10:14 Resp 18 02/22/24 10:14 BP 167/73 H 02/22/24 10:14 Pulse Ox 95 02/22/24 10:14 O2 Del Method Room Air 02/22/24 10:14 BMI result Body Mass Index 23.6 Appearance: Alert.? Oriented X3.? cvs: [id number], [id number] , no murmur res: clear to auscultation ,no rhonchii or wheezing abd: no rebound or guarding ,nt, bs present. ext pulses present , no cyanosis. neuro: axo3 , nonfocal. DS: Data Data Completed and Pending Labs on day of discharge: Laboratory Results - last 24 hr 02/21/24 02/21/24 02/21/24 17:02 17:35 21:39 WBC 11.6 H RBC 4.73 D Hgb 14.1 D Hct 41.1 D MCV 86.9 MCH 29.8 MCHC 34.3 RDW 13.0 Plt Count 302 MPV 10.1 Immature Gran % (Auto) 0.4 Neut % (Auto) 90.4 H Lymph % (Auto) 3.6 L [place] % (Auto) 4.2 Eos % (Auto) 1.1 Baso % (Auto) 0.3 Lymph # (Auto) 0.4 L [place] # (Auto) 0.5 Eos # (Auto) 0.1 Baso # (Auto) 0.0 Abs Immat Gran (auto) 0.05 H Absolute Neuts (auto) 10.4 H Absolute Nucleated RBC 0.000 Nucleated RBC % (auto) 0.0 Smear Tech's Comments VERIFIED Sodium 138 Potassium 3.9 Chloride 106 Carbon Dioxide 25 Anion Gap 11 L BUN 12 Creatinine 0.92 Estim Creat Clear Calc 41.1 Estimated GFR 59 Random Glucose 116 H Estimat Average Glucose Hemoglobin A1c % Calcium 8.9 Total Bilirubin AST ALT Alkaline Phosphatase Troponin I High Sens 3.2 2.9 B-Natriuretic Peptide 88 Total Protein Albumin Triglycerides Cholesterol LDL Cholesterol, Calc HDL Cholesterol Lipase 30 TSH Urine Color Urine Appearance Urine pH Ur Specific [place] Urine Protein Urine Glucose (UA) Urine Ketones Urine Blood Urine Nitrite Ur Leukocyte Esterase Urine RBC Urine WBC Ur Squamous Epith Cells Urine Bacteria Hyaline Casts Influenza Type A (PCR) NEGATIVE Influenza Type B (PCR) NEGATIVE RSV RNA Qual (PCR) NEGATIVE SARS-CoV-2 RNA (RT-PCR) NEGATIVE 02/21/24 02/22/24 02/22/24 22:06 05:11 05:11 WBC 7.6 RBC 4.36 Hgb 12.7 Hct 38.3 MCV 87.8 MCH 29.1 MCHC 33.2 RDW 13.2 Plt Count 293 MPV 10.3 Immature Gran % (Auto) 0.5 H Neut % (Auto) 79.0 H Lymph % (Auto) 11.2 L [place] % (Auto) 8.0 Eos % (Auto) 1.2 Baso % (Auto) 0.1 Lymph # (Auto) 0.9 L [place] # (Auto) 0.6 Eos # (Auto) 0.1 Baso # (Auto) 0.0 Abs Immat Gran (auto) 0.04 H Absolute Neuts (auto) 6.0 Absolute Nucleated RBC 0.000 Nucleated RBC % (auto) 0.0 Smear Tech's Comments Sodium 140 Potassium 3.7 Chloride 106 Carbon Dioxide 26 Anion Gap 12 BUN 11 Creatinine 0.92 Estim Creat Clear Calc 41.1 Estimated GFR 59 Random Glucose 74 Estimat Average Glucose 111 Hemoglobin A1c % 5.5 Calcium 8.2 L D Total Bilirubin 0.4 AST 28 ALT 20 Alkaline Phosphatase 83 Troponin I High Sens 3.1 B-Natriuretic Peptide Total Protein 5.2 L Albumin 2.6 L Triglycerides 224 H Cancelled Cholesterol 206 H LDL Cholesterol, Calc HDL Cholesterol Lipase TSH Urine Color Yellow Urine Appearance Cloudy Urine pH 7.0 Ur Specific [place] 1.020 Urine Protein >=1000 (4+) H Urine Glucose (UA) Negative Urine Ketones Negative Urine Blood Moderate (2+) H Urine Nitrite Negative Ur Leukocyte Esterase Moderate (2+) H Urine RBC >20 H Urine WBC >50 H Ur Squamous Epith Cells >20 Urine Bacteria 4+ Hyaline Casts 6-10 Influenza Type A (PCR) Influenza Type B (PCR) RSV RNA Qual (PCR) SARS-CoV-2 RNA (RT-PCR) 02/22/24 02/22/24 02/22/24 05:11 05:11 05:11 WBC RBC Hgb Hct MCV MCH MCHC RDW Plt Count MPV Immature Gran % (Auto) Neut % (Auto) Lymph % (Auto) [place] % (Auto) Eos % (Auto) Baso % (Auto) Lymph # (Auto) [place] # (Auto) Eos # (Auto) Baso # (Auto) Abs Immat Gran (auto) Absolute Neuts (auto) Absolute Nucleated RBC Nucleated RBC % (auto) Smear Tech's Comments Sodium Potassium Chloride Carbon Dioxide Anion Gap BUN Creatinine Estim Creat Clear Calc Estimated GFR Random Glucose Estimat Average Glucose Hemoglobin A1c % Calcium Total Bilirubin AST ALT Alkaline Phosphatase Troponin I High Sens B-Natriuretic Peptide Total Protein Albumin Triglycerides Cholesterol Cancelled LDL Cholesterol, Calc 122 H Cancelled HDL Cholesterol 40 L Cancelled Lipase TSH 8.02 H Urine Color Urine Appearance Urine pH Ur Specific [place] Urine Protein Urine Glucose (UA) Urine Ketones Urine Blood Urine Nitrite Ur Leukocyte Esterase Urine RBC Urine WBC Ur Squamous Epith Cells Urine Bacteria Hyaline Casts Influenza Type A (PCR) Influenza Type B (PCR) RSV RNA Qual (PCR) SARS-CoV-2 RNA (RT-PCR) Imaging Chest x-ray: Radiologist's impression: ITS Impressions Chest X-Ray 02/21/24 19:25 IMPRESSION: No acute cardiopulmonary process. Discharge Plan Discharge Anticipated Discharge Date/Time: 02/22/24 12:26 Patient Disposition: Xfer Acute Care Hospital Discharge Diagnosis: possible ACS , uncontrolled htn Referrals: [facility] [Outside] - 1 Week Anshu Mayo MD [Primary Care Provider] - 1 Week Discharge Medications: New ceftriaxone 1 gram Recon Soln 1 g IV Q24H Qty: 1 0RF heparin(porcine) in 0.45% NaCl 25,000 unit/250 mL Parenteral Solution 25,000 unit continuous IV infusion .Q0M Qty: 1 0RF amlodipine 10 mg Tablet 10 mg PO DAILY Qty: 1 0RF Protocol: Hold for SBP< HOLD for SBP < : 90 Continued losartan 100 mg tablet 100 mg DAILY metoprolol succinate 200 mg tablet extended release 24 hr 200 mg PO DAILY sertraline 100 mg tablet 100 mg PO QAM aspirin 81 mg tablet,delayed release (DR/EC) 81 mg PO QAM atorvastatin 40 mg tablet 40 mg BEDTIME trazodone 50 mg tablet 50 mg PO BEDTIME PRN (Reason: Insomnia) fluticasone propionate 50 mcg/actuation spray,suspension 1 spray intranasal BID clonazepam 0.5 mg tablet 0.5 mg PO DAILY PRN (Reason: Anxiety) multivitamin Tablet 1 tab PO DAILY loratadine 10 mg Tablet 10 mg PO DAILY tramadol 50 mg tablet 50 mg PO Q12H PRN (Reason: pain) albuterol sulfate [Ventolin HFA] 90 mcg/actuation HFA aerosol inhaler 2 puff inhalation Q4H PRN (Reason: wheezing) Discharge Orders: Discharge Order (Routine); Ordered 02/22/24 Ordered By: Homer Nguyễn Diet: Advance to usual diet Activity on Discharge: As tolerated Stand Alone Forms: Patient Portal Discharge page Care Plan Goals: Patient came to the hospital because of chest pain, found to have EKG changes T- wave inversions-patient is on aspirin, statin, metoprolol added IV heparin, echo also ordered. Patient was seen by Cardiology,thought to be possible unstable angina -recommended to transfer to [facility] for further cardiac workup including cardiac catheterization. Continue heparin drip with PT PTT protocol. uncontrolled htn: added amlodipine in addition to losartan and metoprolol, bp improving ,continue ot moniter. Patient will be going to [facility] today. Health Concerns: As above. Plan of Treatment: As above. Assessment: As above. Patient Instructions: Chest Pain (ED), Hypertension (ED)
--- NOTE | 2024-02-22 12:47 | HO.PM.IMPN ---
Subjective Subjective Date of Service: 02/22/24 Interval History: unstable angina Review of Systems chest pain free denies urinary c/o. Physical Exam Vital Signs: Vital Signs: Last Vital Signs Temp 98.0 F 02/22/24 10:14 Pulse 77 02/22/24 10:14 Resp 18 02/22/24 10:14 BP 167/73 H 02/22/24 10:14 Pulse Ox 95 02/22/24 10:14 O2 Del Method Room Air 02/22/24 10:14 BMI result Body Mass Index 23.6 Appearance: Alert.? Oriented X3.? cvs: rrr, [id number] , no murmur res: clear to auscultation ,no rhonchii or wheezing abd: no rebound or guarding ,nt, bs present. ext pulses present , no cyanosis . neuro: axo3 , nonfocal. Objective Data Active Medications Acetaminophen (Acetaminophen 325 Mg Tablet) 650 mg PO Q6H PRN PRN Reason: Pain, Mild (Pain Scale 1-3) Last Admin: 02/22/24 00:18 Dose: 650 mg Documented By: STEPHANIE Albuterol Sulfate (Albuterol Sulfate 90 Mcg 8 Gm Inhaler) 2 puff INHALE Q4H PRN PRN Reason: wheezing Aspirin (Aspirin Enteric Coated 81 Mg Tablet.) 81 mg PO DAILY [facility] Last Admin: 02/22/24 08:33 Dose: 81 mg Documented By: GAVIOTA Atorvastatin Calcium (Atorvastatin Calcium 40 Mg Tablet) 40 mg PO BEDTIME [facility] Last Admin: 02/22/24 00:18 Dose: 40 mg Documented By: STEPHANIE Clonazepam (Clonazepam 0.5 Mg Tablet) 0.5 mg PO DAILY PRN PRN Reason: Anxiety Last Admin: 02/22/24 00:19 Dose: 0.5 mg Documented By: STEPHANIE Fluticasone Propionate (Fluticasone Propionate Nasal 16 Gm Oneill) 1 spray NOSTRIL-B BID [facility] Heparin Sodium (Porcine) (Heparin Sodium,Porcine 5,000 Unit/Ml Vial) 2,300 unit 40 unit/kg (2300 unit) IVPUSH PROTOCOL BOLUS PRN; Protocol PRN Reason: 40 unit/kg - Heparin Protocol Heparin Sodium (Porcine) (Heparin Sodium,Porcine 5,000 Unit/Ml Vial) 4,700 unit 80 unit/kg (4700 unit) IVPUSH PROTOCOL BOLUS PRN; Protocol PRN Reason: 80 unit/kg - Heparin Protocol Ceftriaxone Sodium 1 gm/ (Sodium Chloride) 50 mls @ 100 mls/hr IV Q24H [facility] Last Infusion: 02/22/24 02:35 Dose: Infused Documented By: STEPHANIE Heparin Sodium/Sodium Chloride (Heparin Sodium,Porcine/1/2ns) 25,000 unit in 250 mls @ 0 mls/hr IVCONT .Q0M [facility]; Protocol Loratadine (Loratadine 10 Mg Tablet) 10 mg PO DAILY [facility] Losartan Potassium (Losartan Potassium 50 Mg Tablet) 100 mg PO DAILY [facility]; Protocol Last Admin: 02/22/24 08:33 Dose: 100 mg Documented By: GAVIOTA Metoprolol Succinate (Metoprolol Succinate Er 100 Mg Tab.Er.24h) 200 mg PO DAILY [facility]; Protocol Last Admin: 02/22/24 08:33 Dose: 200 mg Documented By: GAVIOTA Multivitamins/Vitamin C (Multivitamin Tablet) 1 tab PO DAILY [facility] Nitroglycerin (Nitroglycerin 0.4 Mg Tab.Subl) 0.4 mg SUBLINGUAL Q5MX3 PRN PRN Reason: Chest Pain Sertraline HCl (Sertraline Hcl 100 Mg Tablet) 100 mg PO DAILY [facility] Last Admin: 02/22/24 08:33 Dose: 100 mg Documented By: GAVIOTA Sodium Chloride (0.9 % Sodium Chloride Flush 3 Ml Syringe) 3 ml IVFLUSH QSHIFT [facility] Last Admin: 02/22/24 08:32 Dose: 3 ml Documented By: GAVIOTA Trazodone HCl (Trazodone Hcl 50 Mg Tablet) 50 mg PO BEDTIME PRN PRN Reason: Insomnia Labs 02/22/24 05:11 02/22/24 05:11 Labs: Laboratory Results - last 24 hr 02/21/24 02/21/24 02/21/24 17:02 17:35 21:39 MCV 86.9 MCH 29.8 MCHC 34.3 RDW 13.0 Plt Count 302 MPV 10.1 Immature Gran % (Auto) 0.4 Neut % (Auto) 90.4 H Lymph % (Auto) 3.6 L [place] % (Auto) 4.2 Eos % (Auto) 1.1 Baso % (Auto) 0.3 Lymph # (Auto) 0.4 L [place] # (Auto) 0.5 Eos # (Auto) 0.1 Baso # (Auto) 0.0 Abs Immat Gran (auto) 0.05 H Absolute Neuts (auto) 10.4 H Absolute Nucleated RBC 0.000 Nucleated RBC % (auto) 0.0 Smear Tech's Comments VERIFIED Anion Gap 11 L Estim Creat Clear Calc 41.1 Estimated GFR 59 Random Glucose 116 H Estimat Average Glucose Hemoglobin A1c % Calcium 8.9 Total Bilirubin AST ALT Alkaline Phosphatase Troponin I High Sens 3.2 2.9 B-Natriuretic Peptide 88 Total Protein Albumin Triglycerides Cholesterol LDL Cholesterol, Calc HDL Cholesterol Lipase 30 TSH Urine Color Urine Appearance Urine pH Ur Specific [place] Urine Protein Urine Glucose (UA) Urine Ketones Urine Blood Urine Nitrite Ur Leukocyte Esterase Urine RBC Urine WBC Ur Squamous Epith Cells Urine Bacteria Hyaline Casts Influenza Type A (PCR) NEGATIVE Influenza Type B (PCR) NEGATIVE RSV RNA Qual (PCR) NEGATIVE SARS-CoV-2 RNA (RT-PCR) NEGATIVE 02/21/24 02/22/24 02/22/24 22:06 05:11 05:11 MCV 87.8 MCH 29.1 MCHC 33.2 RDW 13.2 Plt Count 293 MPV 10.3 Immature Gran % (Auto) 0.5 H Neut % (Auto) 79.0 H Lymph % (Auto) 11.2 L [place] % (Auto) 8.0 Eos % (Auto) 1.2 Baso % (Auto) 0.1 Lymph # (Auto) 0.9 L [place] # (Auto) 0.6 Eos # (Auto) 0.1 Baso # (Auto) 0.0 Abs Immat Gran (auto) 0.04 H Absolute Neuts (auto) 6.0 Absolute Nucleated RBC 0.000 Nucleated RBC % (auto) 0.0 Smear Tech's Comments Anion Gap 12 Estim Creat Clear Calc 41.1 Estimated GFR 59 Random Glucose 74 Estimat Average Glucose 111 Hemoglobin A1c % 5.5 Calcium 8.2 L D Total Bilirubin 0.4 AST 28 ALT 20 Alkaline Phosphatase 83 Troponin I High Sens 3.1 B-Natriuretic Peptide Total Protein 5.2 L Albumin 2.6 L Triglycerides 224 H Cancelled Cholesterol 206 H LDL Cholesterol, Calc HDL Cholesterol Lipase TSH Urine Color Yellow Urine Appearance Cloudy Urine pH 7.0 Ur Specific [place] 1.020 Urine Protein >=1000 (4+) H Urine Glucose (UA) Negative Urine Ketones Negative Urine Blood Moderate (2+) H Urine Nitrite Negative Ur Leukocyte Esterase Moderate (2+) H Urine RBC >20 H Urine WBC >50 H Ur Squamous Epith Cells >20 Urine Bacteria 4+ Hyaline Casts 6-10 Influenza Type A (PCR) Influenza Type B (PCR) RSV RNA Qual (PCR) SARS-CoV-2 RNA (RT-PCR) 02/22/24 02/22/24 02/22/24 05:11 05:11 05:11 MCV MCH MCHC RDW Plt Count MPV Immature Gran % (Auto) Neut % (Auto) Lymph % (Auto) [place] % (Auto) Eos % (Auto) Baso % (Auto) Lymph # (Auto) [place] # (Auto) Eos # (Auto) Baso # (Auto) Abs Immat Gran (auto) Absolute Neuts (auto) Absolute Nucleated RBC Nucleated RBC % (auto) Smear Tech's Comments Anion Gap Estim Creat Clear Calc Estimated GFR Random Glucose Estimat Average Glucose Hemoglobin A1c % Calcium Total Bilirubin AST ALT Alkaline Phosphatase Troponin I High Sens B-Natriuretic Peptide Total Protein Albumin Triglycerides Cholesterol Cancelled LDL Cholesterol, Calc 122 H Cancelled HDL Cholesterol 40 L Cancelled Lipase TSH 8.02 H Urine Color Urine Appearance Urine pH Ur Specific [place] Urine Protein Urine Glucose (UA) Urine Ketones Urine Blood Urine Nitrite Ur Leukocyte Esterase Urine RBC Urine WBC Ur Squamous Epith Cells Urine Bacteria Hyaline Casts Influenza Type A (PCR) Influenza Type B (PCR) RSV RNA Qual (PCR) SARS-CoV-2 RNA (RT-PCR) Microbiology Microbiology Results: Microbiology 02/21/24 22:06 Urine Culture - Preliminary Urine clean catch - Urine grace top No growth to date. Assessment and Plan (1) Unstable angina: Status: Acute (2) Hypertension: Status: Acute Plan 78 years old woman admitted with: Chest pain, currently asymptomatic. T-wave inversions V3-V6. Admit to hospitalist service. Telemetry. Continue ASA, beta-livier and statin,heparin drip ,moniter PT/PTT per protocol. Check hemoglobin A1c and lipid panel. echo added. Cardiology consult- noted : possible transfer for [facility] past midnight . Hyperlipidemia. Continue statin. Essential hypertension. bp improving continue amlodipine and Metoprolol and losartan. Anxiety and depression. Continue sertraline, trazodone and losartan. Presumed UTI. Start ceftriaxone. Urine culture pending. Code status: Full ongoing need hospitalization for hospitilsation need for chest pain ,possible unstable angina-management and treatment she will need close cardiac and vital signs as well as Cardiology evaluation. Quality Stroke Does the patient have a stroke diagnosis?: No VTE Prior VTE?: No VTE Risk Level:: Medical - moderate - high VTE Device Contraindication: Treatment Not Indicated VTE Drug Contraindication: N/A - Med Ordered
--- NOTE | 2024-02-22 13:05 | MHC.CM.PN ---
Met with patient, INSURANCE ASSOCIATE Taryn and insole cementer in regards to discharge planning. Patient lives alone, ambulates with a walker/cane and has a INSURANCE ASSOCIATE through insurance. PCP verified. Patient denies having a HCP. Information provided. Patient not interested in completing one at this time. IMM explained and signed. At this time it appears patient will transfer to [facility] for cardiac cath. Continue to monitor for d/c needs.
--- NOTE | 2024-02-22 13:33 | PC.NURSE ---
dr. warren bedside speaking w/ pt and pt's family members at this time. pt aware of plan of care at this time.
[2024-02-22] MEDS: amLODIPine Besylate 5 MG TABLET PO (13:37)
--- NOTE | 2024-02-22 13:38 | PC.NURSE ---
pt remains hypertensive - medication administered per provider order. effectiveness pending. pt aware of transfer to [facility] at this time. plan of care ongoing.
[2024-02-22 13:46] LABS: INTERNATIONAL NORM RATIO 0.9 (0.9-1.1); Prothrombin Time 11.3 SEC (11.1-13.3)
[2024-02-22 13:49] LABS: PTT Heparin Drip 33.2 SEC (53-77.9)
[2024-02-22] MEDS: Heparin Sodium,Porcine/1/2NS 25,000 UNIT/250 ML IV.SOLN 8.19 UNIT IVCONT (14:40)
--- NOTE | 2024-02-22 17:03 | PC.NURSE ---
pt's BP continues to decrease post medication administration. pt still waiting for bed placement at [facility] at this time. respirations remain even and unlabored. call nguyen placed within reach.
--- NOTE | 2024-02-22 18:45 | PC.NURSE ---
vss adn up to date aside from pt remaining slightly hypertensive despite medication administration. 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 pt denies chest pain/palpitations at this time. pt has no acute complaints. no sob/wob noted. respirations remain even and unlabored. pt sitting upright eating dinner at this time. continues to wait for bed assignment at [facility]. plan of care ongoing. call nguyen placed within reach.
--- NOTE | 2024-02-22 20:24 | PC.NURSE ---
report called to [facility] [place] RN - pt going to [address] Faulkner accepting. ambulance transport here to take pt to [facility] [place] @20:25. Heparin drip running at 14U/KG/HR. repeat ptt due at 20:40. [facility] [place] RN aware. says to keep drip where it is and they will do all new PTT blood work when pt arrives to [facility] [place]
== END 2024-02-22 20:30 | disposition short-term general hospital (02) | DRG 311 ==
LOC: HO.ED 21:48 → HO.EDOVER 23:12
PROVIDERS: Admitting Provider Internal Medicine; Emergency Provider Emergency Medicine; PCP Internal Medicine; Visit Provider Internal Medicine
DX: I24.9 Acute ischemic heart disease, unspecified (principal); N39.0 Urinary tract infection, site not specified; I16.0 Hypertensive urgency; I10 Essential (primary) hypertension; F32.A Depression, unspecified; F41.9 Anxiety disorder, unspecified; E78.5 Hyperlipidemia, unspecified; Z20.822 Contact with and (suspected) exposure to COVID-19; Z79.51 Long term (current) use of inhaled steroids; Z79.899 Other long term (current) drug therapy
CPT/HCPCS: 0241U; 36415; 71045; 80048; 80053; 80061; 81001; 83036; 83690; 83880; 84443; 84484; 85025; 85610; 85730; 87086; 93005; 93306; 99285; J0696; J1644; Q9957

== ENCOUNTER 2024-02-21 23:06 | Outpatient (BNV) | payer OTHER, SELFPAY | END 2024-02-22 07:00 | PROVIDERS: Admitting Provider Internal Medicine; Emergency Provider Emergency Medicine; PCP Internal Medicine; Visit Provider Internal Medicine Cardiovascular Disease | DX: R07.9 Chest pain, unspecified (principal) | CPT/HCPCS: 93010; 93306 ==

== ENCOUNTER → 2024-02-21 23:06 | Outpatient (BNV) | payer MEDICARE, MEDICAID, SELFPAY | PROVIDERS: Admitting Provider Internal Medicine; Emergency Provider Emergency Medicine; PCP Internal Medicine; Visit Provider Internal Medicine | DX: R07.9 Chest pain, unspecified (principal); E78.5 Hyperlipidemia, unspecified; F41.9 Anxiety disorder, unspecified; I10 Essential (primary) hypertension; I20.0 Unstable angina | CPT/HCPCS: 99223; 99239 ==

== ENCOUNTER → 2024-02-21 23:06 | Outpatient (BNV) | payer OTHER, SELFPAY | PROVIDERS: Admitting Provider Internal Medicine; Emergency Provider Emergency Medicine; PCP Internal Medicine; Visit Provider Internal Medicine Cardiovascular Disease | DX: I20.0 Unstable angina (principal); I10 Essential (primary) hypertension | CPT/HCPCS: 93010; 99223 ==

== ENCOUNTER 2024-04-28 09:53 | Outpatient (REF) | payer OTHER, SELFPAY ==
[2024-04-28 11:53] LABS: Alanine Aminotransferase 22 U/L (0-31); Albumin Level 3.5 g/dL (3.5-5.0); Alkaline Phosphatase 102 U/L (39-117); Anion Gap 11 (12-20); Aspartate Amino Transferase 32 U/L (5-31); Bilirubin Direct 0.1 mg/dL (0.0-0.5); Bilirubin Total 0.4 mg/dL (0.0-1.0); Blood Urea Nitrogen 18 mg/dL (9-16); Calcium 9.6 mg/dL (8.4-10.2); Carbon Dioxide 29 mmol/L (22-29); Chloride 105 mmol/L (96-108); Cholesterol 261 mg/dL (<200); Estimated Glomerular Filt Rate 53; Glucose Random 82 mg/dL (60-115); HDL Cholesterol 44 mg/dL (>40); LDL Cholesterol Calculated 155 mg/dL (<100); Potassium 4.1 mmol/L (3.3-5.1); Sodium 141 mmol/L (135-145); Total Protein 6.6 g/dL (6.5-8.0); Triglycerides 310 mg/dL (<150)
[2024-04-28 12:04] LABS: Reflex LDLD? No
== END 2024-04-28 09:54 | disposition home or self-care (01) ==
LOC: HO.HHCL 09:53
PROVIDERS: Visit Provider Internal Medicine
DX: E78.2 Mixed hyperlipidemia (principal); I10 Essential (primary) hypertension
CPT/HCPCS: 36415; 80048; 80061; 80076

== ENCOUNTER 2024-06-20 09:32 | Outpatient (AMB) | payer OTHER, MEDICAID, SELFPAY ==
--- NOTE | 2024-06-20 09:35 | MHC.OFFVIS ---
Vital Signs 06/20/24 09:47 Height 5 ft 2 in Weight 121 lb 2 oz BMI 22.2 BP 134/60 Blood Pressure Location Lt brachial Position Sitting Respiration 14 Pulse 70 Pulse Source Pulse Oximeter Pulse Oximetry (%) 99 Oxygen Delivery Method Room Air Intake Visit Reasons: Chronic Low Back Pain Intake Note: Patient comes in for initial visit was referred by primary care. Reports pain 8/10. 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 Installer Required: Yes 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 Installer Services: 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 Installer Present Allergies ibuprofen [From MOTRIN] Allergy (Unknown, Verified 06/20/24 09:47) DIZZINESS oxycodone [Percocet] Allergy (Unknown, Verified 06/20/24 09:47) Unknown From PERCOCET Allergy (Unknown, Uncoded 02/21/24 23:51) NAUSEA & VOMITING,DIZZINESS MOTRIN Allergy (Unknown, Uncoded 02/21/24 23:51) GASTRIC UPSET HPI Comments Details: Jelly is very pleasant 79 years old female who presents in my office with complains on pain in the lower back radiating to the left lower extremity the level of the lower olivas but not to the level of the ankle, foot or toes. She reports that this pain is bothering her for more than 10 years. She reported that in the past when she was 47 years old she had lumbar surgery nature which she does not know. She reports her pain today 8 to 9/10. She reports that her pain is constant and it is being aggravated by walking and standing, sitting or laying down make her pain slightly better. She was in the past diagnose with spinal stenosis. She also was under care of [facility] can she received injections from [facility], most likely those were epidural steroid injections. In terms of tissue damage he reports her pain as pins and needles pounding and aching sensation. She is taking tramadol 50 mg every 4 hours for pain. She also takes Motrin 200 mg presumably every 8 hours. She had physical therapy in the past and she suffered from pain aggravation while on physical therapy she stopped physical therapy and did not want to continue. She also had MRI ordered by [facility] and reports is probably available with [facility]. The MRI probably was no longer than 2 years ago. Her past medical history significant for hypertension depression and anxiety. She is on disability for anxiety. Her past surgical history significant for back surgery described above and ovariectomy. She denies smoking cigarettes never smoked she denies drinking alcohol she drinks Pepsi every day and she denies recreational drugs. [facility] Medical History (Updated 06/20/24 @ 10:39 by North Byers MD) Chronic leg pain Anxiety Hyperlipidemia Hypertension Social History Alcohol intake: never Patient Tobacco Use Status: Never used Tobacco service: No Review of Systems Const All systems reviewed & are unremarkable except as noted in HPI and below Reports no additional complaints ENT Reports Normal hearing present Card Reports no additional complaints Resp Reports no additional complaints GI Reports no additional complaints Reports no additional complaints Musc Reports as per HPI Neuro Reports no additional complaints, Reports Normal hearing present, Denies Abnormal speech present and Denies Sensory deficit (Neuro) Psych Reports as per HPI Endo Reports no additional complaints Sylvain/Lymph Reports no additional complaints Physical Exam Vital Signs: Last Vital Signs Pulse 70 06/20/24 09:47 Resp 14 06/20/24 09:47 BP 134/60 06/20/24 09:47 Pulse Ox 99 06/20/24 09:47 Oxygen Delivery Method Room Air 06/20/24 09:47 BMI result Body Mass Index 22.2 Const General: no acute distress, alert and awake Nutritional Appearance: average body habitus Orientation/consciousness: patient oriented x3 Limitations: language barrier Eyes General: appearance normal, both eyes and all related structures Pupils: Equal, round and reactive pupils present EOM: EOMs intact bilaterally Neck Neck: Yes full ROM Chest Chest palpation & inspection: normal inspection of the chest Resp Effort & Inspection: normal respiratory effort, able to speak in complete sentences, normal respiratory pattern, no audible wheezes and no cough Cardio Jugular venous distension: no JVD GI Inspection: Yes normal to inspection Neuro General: patient oriented x3 and gait normal Cranial nerves: Yes CN's II-XII intact bilaterally, Yes Equal, round and reactive pupils present, Yes Normal hearing present and Yes Ability to bilaterally elevate shoulders present Speech: No Abnormal speech present Gait exam (Neuro): Normal gait present Motor exam (neuro): 5/5 motor strength present throughout Sensory Exam: No Sensory deficit (Neuro) Extrem Other: Lateral and medial rotation of the left hip causes discomfort in the groin. General: No pedal edema Psych Speech and movement: Normal speech and movement present Affect: normal affect Attitude: cooperative Thought process: Normal thought process present Thought content: Normal thought content present Insight: Good insight present (Psych) Judgement: Good judgement present (Psych) Results Reviewed Results Reviewed: SLR is positive on the left. Wilberto test is positive on the left. Gaenslen test is positive on the left. Lassegue is positive on the left. Tenderness on palpation in lowest lumbar spine, there is no sensation of the spinous processes approximately at L4-5 levels. The thin scar approximately 12-14 cm long, the scar is not inflamed or hypertrophic. She denies Valsalva maneuver aggravates her pain. The strength of bilateral lower extremities appear to be normal she is able to flex her ankles forward with normal strength and symmetrical she is able to flex the feet backwards with normal strength and symmetrical, she is able to lift the 1st toe in separation of the rest of the toes without difficulty. No numbness reported in bilateral lower extremities. No pelvis organ dysfunction is reported. Assessment & Plan Assessment & Plan (1) Sacroiliitis: Code(s): M46.1 - Sacroiliitis, not elsewhere classified Category: Medical (2) Sacroiliac joint dysfunction of left side: Code(s): M53.3 - Sacrococcygeal disorders, not elsewhere classified Category: Medical (3) Osteoarthritis of left hip: Code(s): M16.12 - Unilateral primary osteoarthritis, left hip Category: Medical (4) Postlaminectomy syndrome: Code(s): M96.1 - Postlaminectomy syndrome, not elsewhere classified Category: Medical (5) Chronic pain syndrome: Code(s): G89.4 - Chronic pain syndrome Category: Medical Plan This patient is suffering from consequences of the extensive surgery on the lower lumbar spine. The levels are unknown to me. She also had injections at [facility], she obviously had an MRI before the injections were performed. She will sign the medical information release note for me and we will obtain report of the MRI and reports of the performed injections at [facility]. To evaluate her left hip as well as left sacroiliac joint I will send her for the x-ray of the sacroiliac joint/pelvis x-ray as well as x-ray of the left hip joint. These are potential for the future targets for the procedures for me. I will schedule her for diagnostic sacroiliac joint injection to rule out or confirm left sacroiliac joint dysfunction is the pain generators for this patient. She also reported today that she has osteoporosis. She drinks soda and recommended her to stop Pepsi Cola, she may continue sylvia kathy if she wishes to. I will see this patient after sacroiliac joint injection. Orders: Orders XR hip LT 1V Today M16.12 - Unilateral primary osteoarthritis, left hip XR pelvis min 3V Today M46.1 - Sacroiliitis, not elsewhere classified, M53.3 - Sacrococcygeal disorders, not elsewhere classified Patient Instructions: I here by testify that I spent 45 minutes in conversation with this patient, evaluating her prior records, evaluating prior diagnostic studies, planning her care, organizing this note. the conversation was facilitated by enforcement safety officer Nishi, who is certified big data developer. Coding Level of Care Code New Pt Level 4 (84771) Diagnoses Sacroiliitis M46.1 Sacroiliac joint dysfunction of left side M53.3 Osteoarthritis of left hip M16.12 Postlaminectomy syndrome M96.1 Chronic pain syndrome G89.4
[2024-06-20 09:47] VITALS: BP 134/60; PULSE 70; RESP 14; O2SAT 99; BMI 22.2
== END 2024-06-20 10:16 | disposition home or self-care (01) ==
PROVIDERS: PCP Internal Medicine; Visit Provider Anesthesiology
DX: M46.1 Sacroiliitis, not elsewhere classified (principal); M53.3 Sacrococcygeal disorders, not elsewhere classified; M16.12 Unilateral primary osteoarthritis, left hip; M96.1 Postlaminectomy syndrome, not elsewhere classified; G89.4 Chronic pain syndrome
CPT/HCPCS: 99204

== ENCOUNTER → 2024-06-20 09:32 | Outpatient (BNVA) | payer OTHER, MEDICAID, SELFPAY | PROVIDERS: PCP Internal Medicine; Visit Provider Anesthesiology | DX: M46.1 Sacroiliitis, not elsewhere classified (principal); M53.3 Sacrococcygeal disorders, not elsewhere classified; M16.12 Unilateral primary osteoarthritis, left hip; M96.1 Postlaminectomy syndrome, not elsewhere classified; G89.4 Chronic pain syndrome | CPT/HCPCS: 99202 ==

== ENCOUNTER 2024-06-23 07:57 | Outpatient (REF) | payer OTHER, SELFPAY ==
--- NOTE | ~2024-06-23 | XR_ITS ---
EXAMINATION: XR PELVIS XR HIP, LEFT CLINICAL INFORMATION: Left hip primary osteoarthritis. Sacroiliitis. COMPARISON: Selected images of the abdomen and pelvic CT scan of 07/10/2015. TECHNIQUE: AP and lateral views of the pelvis. AP view of the left hip. FINDINGS: Diffuse osseous demineralization. Femoral heads are well seated in respective acetabula. There is severe narrowing of the bilateral hip joint spaces with subarticular sclerosis and cystic changes as well as marginal osteophytic changes. Symphysis pubis is intact. Sacroiliac joints grossly appear unremarkable without evidence of abnormal widening, fusion, sclerotic changes or osteophytic changes. A 1.1 cm radiodensity noted projecting over the right femoral head laterally corresponds to the calcifications noted along the anterior aspect of the femoral head on the CT scan representing sequela of calcific tendinitis or bursitis. Small sclerotic density in the left ischium is a stable finding. Multiple phleboliths in the pelvis. Lower lumbar spondylosis. Calcific atherosclerosis of the visualized aorta. XR/XR hip LT 1V IMPRESSION: Severe osteoarthritic changes at the bilateral hips demonstrate interval worsening. No acute osseous abnormality. Lower lumbar spondylosis. No convincing radiographic evidence to suggest changes of sacroiliitis.
--- NOTE | ~2024-06-23 | XR_ITS ---
EXAMINATION: XR PELVIS XR HIP, LEFT CLINICAL INFORMATION: Left hip primary osteoarthritis. Sacroiliitis. COMPARISON: Selected images of the abdomen and pelvic CT scan of 07/10/2015. TECHNIQUE: AP and lateral views of the pelvis. AP view of the left hip. FINDINGS: Diffuse osseous demineralization. Femoral heads are well seated in respective acetabula. There is severe narrowing of the bilateral hip joint spaces with subarticular sclerosis and cystic changes as well as marginal osteophytic changes. Symphysis pubis is intact. Sacroiliac joints grossly appear unremarkable without evidence of abnormal widening, fusion, sclerotic changes or osteophytic changes. A 1.1 cm radiodensity noted projecting over the right femoral head laterally corresponds to the calcifications noted along the anterior aspect of the femoral head on the CT scan representing sequela of calcific tendinitis or bursitis. Small sclerotic density in the left ischium is a stable finding. Multiple phleboliths in the pelvis. Lower lumbar spondylosis. Calcific atherosclerosis of the visualized aorta. XR/XR pelvis min 3V IMPRESSION: Severe osteoarthritic changes at the bilateral hips demonstrate interval worsening. No acute osseous abnormality. Lower lumbar spondylosis. No convincing radiographic evidence to suggest changes of sacroiliitis.
== END 2024-06-23 07:58 | disposition home or self-care (01) ==
LOC: HO.XRAY 07:57
PROVIDERS: PCP Internal Medicine; Visit Provider Anesthesiology
DX: M16.12 Unilateral primary osteoarthritis, left hip (principal); M46.1 Sacroiliitis, not elsewhere classified; M53.3 Sacrococcygeal disorders, not elsewhere classified
CPT/HCPCS: 72170; 72190; 73501

== ENCOUNTER 2024-06-27 09:36 | Outpatient (REF) | payer OTHER, SELFPAY ==
--- NOTE | ~2024-06-27 | US_ITS ---
EXAMINATION: US THYROID CLINICAL INFORMATION: Irregular thyroid tissue seen on carotid ultrasound COMPARISON: None available. TECHNIQUE: Linear transducer grayscale and color Doppler examination with attention to the region of the thyroid. FINDINGS: SIZE: Measurements of the thyroid lobes and nodules are given in sagittal, anteroposterior and transverse dimensions respectively. Right Thyroid Lobe: 3.7 x 1.4 x 1.2 cm, volume 3.1 mL. Parenchyma: The gland echotexture is homogeneous. Thyroid vascularity is normal. Left Thyroid Lobe: 3.4 x 1.0 x 1.0 cm, volume 1.7 mL. Parenchyma: The gland echotexture is homogeneous. Thyroid vascularity is normal. Isthmus: 0.4 cm in maximum AP dimension. Estimated total number of nodules greater than or equal to 1 cm: 0. Valet Attendant nodules are described as follows: Numerous small colloid cysts are seen bilaterally, measure less than 1.0 cm. 0.6 x 0.4 x 0.5 cm nodule seen in the mid left lobe, volume 0.07 mL. Composition,? Mixed, isoechoic, not taller than wide, smooth margins, punctate calcification. This corresponds to 5 total points, BI-RADS 4. NODES: No lymphadenopathy is seen in the tissue surrounding the thyroid gland. US/US thyroid IMPRESSION: Normal size homogeneous thyroid gland with no significant nodule. 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 No further follow-up is recommended. ACR TI-RADS RECOMMENDATION REFERENCE: Ultrasound-guided fine-needle aspiration, followup ultrasound, no further follow up. * TR1 (0 point) and TR2 (2 points): No FNA or follow up. * TR3 (3 points): FNA if more than or equal to 2.5 cm in maximum dimension, followup ultrasound in 1, 3 and 5 years if 1.5 to 2.4 cm in maximum dimension. * TR4 (4-6 points): FNA if more than or equal to 1.5 cm in maximum dimension, followup ultrasound in 1, 2, 3 and 5 years if 1 to 1.4 cm in maximum dimension. * TR5 (more than or equal to 7 points): FNA if more than or equal to 1 cm in maximum dimension, followup ultrasound every year for 5 years if 0.5 to 0.9 cm in maximum dimension. * TR3, TR4 or TR5 nodules that are below the size threshold for followup receive no follow up.
== END 2024-06-27 09:37 | disposition home or self-care (01) ==
LOC: HO.US 09:36
PROVIDERS: PCP Internal Medicine; Visit Provider Internal Medicine
DX: R93.89 Abnormal findings on diagnostic imaging of other specified body structures (principal)
CPT/HCPCS: 76536

== ENCOUNTER 2024-08-11 10:07 | Outpatient (REF) | payer OTHER, SELFPAY ==
--- NOTE | ~2024-08-11 | CT_ITS ---
EXAMINATION: CT SOFT TISSUE NECK WITHOUT CONTRAST CLINICAL INFORMATION: Cystic structure along the left jaw line. COMPARISON: Thyroid ultrasound from 06/27/2024. CT neck from 03/26/2022 and 01/19/2019. TECHNIQUE: Multidetector helical imaging was performed in the axial plane without intravenous contrast. Multiple axial reformats and coronal/sagittal reconstructions were created the technologist workstation for review. This CT examination was performed using dose optimization techniques as appropriate, variously including the following: *Automated exposure control. *Adjustment of mA and/or kV according to patient size (this includes techniques or standardized protocols for targeted exams where dose is matched to indication/reason for exam; i.e. extremities or head). *Use of iterative reconstruction technique. DLP: 413 mGy-cm FINDINGS: No significant cutaneous thickening or subcutaneous inflammation. No discrete fluid collection within the deep tissues of the neck. The premaxillary, retromaxillary, pterygopalatine fossa, orbital apical, parapharyngeal, and prelaryngeal adipose tissue is maintained. Redemonstrated 1.2 cm round nodule in the superficial lobe of the left parotid gland (similar to 202 end minimally increased in size compared to 2019). Otherwise, normal appearance of the parotid, submandibular, and thyroid glands. Scattered subcentimeter lymph nodes bilaterally, none of which are pathologically enlarged. No demonstrated focal lesion in the intrinsic tissues of the tongue or floor of mouth. Normal mucosal contours of the pharynx and larynx. Normal appearance of the hyoid bone, thyroid cartilage, or cartilaginous trachea. The airways remains widely patent. No radiopaque foreign bodies. The atlantooccipital and atlantoaxial articulations remain well aligned. Straightening of the normal cervical lordosis. No evidence of acute fracture or subluxation of the cervical spine. The vertebral body heights are maintained. Advanced degenerative disc disease at C5-C6. Mild to moderate degenerative disc disease at all additional levels. Facet and uncovertebral joint arthropathy leads to osseous encroachment on the neural foramina from C2-T1. There is no prevertebral soft tissue swelling. The visualized portion of the skull base is without significant abnormalities. The visualized paranasal sinuses are clear. The mastoid air cells and middle ear cavities are clear. No demonstrated significant periapical odontogenic disease. CT Upper Chest: The visualized lung apices and upper mediastinum are within normal limits. CT/CT soft tissue neck wo IV con IMPRESSION: 1. Redemonstrated 1.2 cm nodule in the superficial lobe of the left parotid gland. This lesion appears similar to exam from 2021 and minimally increased in size compared to 2019. 2. No additional focal lesion, collection, or lymphadenopathy within the soft tissues of the neck. 3. Moderate multilevel degenerative spondyloarthropathy of the cervical spine. Electronically signed by: Shine Branch DO 08/11/2024 08:32 PM EDT
[2024-08-11 10:47] LABS: Anion Gap 11 (12-20); Blood Urea Nitrogen 19 mg/dL (9-16); Calcium 9.4 mg/dL (8.4-10.2); Carbon Dioxide 28 mmol/L (22-29); Chloride 106 mmol/L (96-108); Estimated Glomerular Filt Rate 47; Glucose Random 103 mg/dL (60-115); Potassium 4.3 mmol/L (3.3-5.1); Sodium 141 mmol/L (135-145)
== END 2024-08-11 10:08 | disposition home or self-care (01) ==
LOC: HO.CT 10:07
PROVIDERS: PCP Internal Medicine; Visit Provider Internal Medicine
DX: R93.89 Abnormal findings on diagnostic imaging of other specified body structures (principal)
CPT/HCPCS: 36415; 70490; 80048

== ENCOUNTER 2024-08-30 06:13 | Outpatient (REF) | payer OTHER, SELFPAY | END 2024-08-30 06:14 | disposition home or self-care (01) | LOC: CF 06:13 | PROVIDERS: Visit Provider Anesthesiology | DX: M53.3 Sacrococcygeal disorders, not elsewhere classified (principal); M46.1 Sacroiliitis, not elsewhere classified; M16.12 Unilateral primary osteoarthritis, left hip; M96.1 Postlaminectomy syndrome, not elsewhere classified; G89.4 Chronic pain syndrome | CPT/HCPCS: 27096; J2795; Q9967 ==

== ENCOUNTER 2024-08-30 09:15 | Outpatient (AMB) | payer OTHER, SELFPAY ==
--- NOTE | 2024-08-30 09:50 | A.OFFVIS_ITS ---
Vital Signs 08/30/24 10:08 08/30/24 11:27 Height 5 ft 2 in 5 ft 2 in Weight 121 lb 2 oz 121 lb 2 oz BMI 22.2 22.2 BP 168/82 H 140/78 H Blood Pressure Location Lt brachial Lt brachial Position Sitting Sitting Respiration 14 14 Pulse 75 68 Pulse Source Pulse Oximeter Pulse Oximeter Pulse Oximetry (%) 100 99 Oxygen Delivery Method Room Air Room Air Comment pre-op post-op Intake Visit Reasons: LEFT DIAGNOSTIC SIJ INJECTION Allergies ibuprofen [From MOTRIN] Allergy (Unknown, Verified 08/30/24 11:32) DIZZINESS oxycodone [Percocet] Allergy (Unknown, Verified 08/30/24 11:32) Unknown From PERCOCET Allergy (Unknown, Uncoded 02/21/24 23:51) NAUSEA & VOMITING,DIZZINESS MOTRIN Allergy (Unknown, Uncoded 02/21/24 23:51) GASTRIC UPSET PFSH Medical History (Updated 06/20/24 @ 10:39 by [place] Byers MD) Chronic leg pain Anxiety Hyperlipidemia Hypertension Social History Alcohol intake: never Patient Tobacco Use Status: Never used Tobacco service: No Physical Exam Vital Signs: Last Vital Signs Pulse 68 08/30/24 11:27 Resp 14 08/30/24 11:27 BP 140/78 H 08/30/24 11:27 Pulse Ox 99 08/30/24 11:27 Oxygen Delivery Method Room Air 08/30/24 11:27 BMI result Body Mass Index 22.2 Assessment & Plan Assessment & Plan (1) Sacroiliitis: Code(s): M46.1 - Sacroiliitis, not elsewhere classified Category: Medical (2) Sacroiliac joint dysfunction of left side: Code(s): M53.3 - Sacrococcygeal disorders, not elsewhere classified Category: Medical (3) Osteoarthritis of left hip: Code(s): M16.12 - Unilateral primary osteoarthritis, left hip Category: Medical (4) Postlaminectomy syndrome: Code(s): M96.1 - Postlaminectomy syndrome, not elsewhere classified Category: Medical (5) Chronic pain syndrome: Code(s): G89.4 - Chronic pain syndrome Category: Medical Plan Left diagnostic sacroiliac joint injection Informed consent was explained thoroughly to the patient.? All questions about benefits and risks for the procedure were answered. Patient came to the operating room and was positioned prone on the operating table with the pillow under the abdomen. The lower back and buttocks of the patient were prepped with ChloraPrep prepped and draped with sterile utility towels.? Sterilely draped C-arm was brought over the operating field and sq picture of patient's pelvis was demonstrated on the screen.? For the left joint tilting C-arm contralateral to the site of the joint the most posterior portion of the joints was superimposed with anterior silhouette of the joint.? Skin was injected in the projection of the joint slightly medial to the location of the joint with 25 gauge 1/2 inch needle using local lidocaine 2% . After that 22 gauge 3 and 1/2 inch needle was driven to the left joint in tunnel vision fashion.? When needle entered the joint capsule injection of the contrast was performed demonstrating intra-articular and minimally periarticular spread of the contrast.? After that 4 cc. of ropivacaine 0.5% was injected in the joint. Upon completion of the injections the needle was removed and Band- Aid was applied.? Upon completion of the injection patient was taken outside of the operating room to the recovery room where recovered uneventfully. Orders: Orders FL guidance in treatment room Today M53.3 - Sacrococcygeal disorders, not elsewhere classified Coding Level of Care Code Procedure Only Diagnoses Sacroiliitis M46.1 Sacroiliac joint dysfunction of left side M53.3 Osteoarthritis of left hip M16.12 Postlaminectomy syndrome M96.1 Chronic pain syndrome G89.4
[2024-08-30 10:08] VITALS: BP 168/82; PULSE 75; RESP 14; O2SAT 100; BMI 22.2
[2024-08-30 11:27] VITALS: BP 140/78; PULSE 68; RESP 14; O2SAT 99; BMI 22.2
== END 2024-08-30 10:57 | disposition home or self-care (01) ==
LOC: HO.PMCPRC 09:15
PROVIDERS: PCP Internal Medicine; Visit Provider Anesthesiology
DX: M46.1 Sacroiliitis, not elsewhere classified (principal); M53.3 Sacrococcygeal disorders, not elsewhere classified; M16.12 Unilateral primary osteoarthritis, left hip; M96.1 Postlaminectomy syndrome, not elsewhere classified; G89.4 Chronic pain syndrome
CPT/HCPCS: 27096

== ENCOUNTER 2024-09-05 09:49 | Outpatient (AMB) | payer OTHER, SELFPAY ==
--- NOTE | 2024-09-05 10:00 | A.OFFVIS_ITS ---
Vital Signs 09/05/24 10:13 Height 5 ft 2 in Weight 120 lb 2 oz BMI 22.0 BP 150/70 H Blood Pressure Location Lt brachial Position Sitting Respiration 14 Pulse 70 Pulse Source Pulse Oximeter Pulse Oximetry (%) 98 Oxygen Delivery Method Room Air Intake Visit Reasons: LEFT DIAGNOSTIC SIJ INJECTION Intake Note: Patient comes in for post-op. Reports pain 10/10. Typing Bookkeeper Required: Yes Typing Bookkeeper Services: Typing Bookkeeper Present Typing Bookkeeper Name: Rena Gaxiola Certified Allergies ibuprofen [From MOTRIN] Allergy (Unknown, Verified 09/05/24 10:15) DIZZINESS oxycodone [Percocet] Allergy (Unknown, Verified 09/05/24 10:15) Unknown From PERCOCET Allergy (Unknown, Uncoded 02/21/24 23:51) NAUSEA & VOMITING,DIZZINESS MOTRIN Allergy (Unknown, Uncoded 02/21/24 23:51) GASTRIC UPSET HPI Comments Details: Jelly is back in my office after left diagnostic sacroiliac joint injection. She reported only pain aggravation after the injection. She reported maybe 1 hour of pain improvement but pleasant 50% after the injection. Attention was attracted today that she has pain in the projection of the left hip. She reports aggravation of the pain and pain going into the left groin with lateral rotation of the thigh. I offered the patient to have therapeutic intra- articular left hip steroid injection however patient adamantly refused. I reported to the patient that she may go to primary care physician, continue tramadol, start on Celebrex. Prior: very pleasant 79 years old female who presents in my office with complains on pain in the lower back radiating to the left lower extremity the level of the lower olivas but not to the level of the ankle, foot or toes. She reports that this pain is bothering her for more than 10 years. She reported that in the past when she was 47 years old she had lumbar surgery nature which she does not know. She reports her pain today 8 to 9/10. She reports that her pain is constant and it is being aggravated by walking and standing, sitting or laying down make her pain slightly better. She was in the past diagnose with spinal stenosis. She also was under care of [facility] can she received injections from [facility], most likely those were epidural steroid injections. In terms of tissue damage he reports her pain as pins and needles pounding and aching sensation. She is taking tramadol 50 mg every 4 hours for pain. She also takes Motrin 200 mg presumably every 8 hours. She had physical therapy in the past and she suffered from pain aggravation while on physical therapy she stopped physical therapy and did not want to continue. She also had MRI ordered by [facility] and reports is probably available with [facility]. [facility] Medical History (Updated 06/20/24 @ 10:39 by [place] MD) Chronic leg pain Anxiety Hyperlipidemia Hypertension Social History Alcohol intake: never Patient Tobacco Use Status: Never used Tobacco service: No Review of Systems Const All systems reviewed & are unremarkable except as noted in HPI and below ENT Reports Normal hearing present Neuro Reports Normal hearing present, Denies Abnormal speech present and Denies Sensory deficit (Neuro) Physical Exam Const General: no acute distress, alert and awake Nutritional Appearance: average body habitus Orientation/consciousness: patient oriented x3 Limitations: language barrier Eyes General: appearance normal, both eyes and all related structures Pupils: Equal, round and reactive pupils present EOM: EOMs intact bilaterally Neck Neck: Yes full ROM Chest Chest palpation & inspection: normal inspection of the chest Resp Effort & Inspection: normal respiratory effort, able to speak in complete sentences, normal respiratory pattern, no audible wheezes and no cough Cardio Jugular venous distension: no JVD GI Inspection: Yes normal to inspection Neuro General: patient oriented x3 and gait normal Cranial nerves: Yes CN's II-XII intact bilaterally, Yes Equal, round and reactive pupils present, Yes Normal hearing present and Yes Ability to bilaterally elevate shoulders present Speech: No Abnormal speech present Gait exam (Neuro): Normal gait present Motor exam (neuro): 5/5 motor strength present throughout Sensory Exam: No Sensory deficit (Neuro) Extrem Other: Lateral and medial rotation of the left hip causes discomfort in the groin. General: No pedal edema Psych Speech and movement: Normal speech and movement present Affect: normal affect Attitude: cooperative Thought process: Normal thought process present Thought content: Normal thought content present Insight: Good insight present (Psych) Judgement: Good judgement present (Psych) Assessment & Plan Assessment & Plan (1) Sacroiliitis: Code(s): M46.1 - Sacroiliitis, not elsewhere classified Category: Medical (2) Sacroiliac joint dysfunction of left side: Code(s): M53.3 - Sacrococcygeal disorders, not elsewhere classified Category: Medical (3) Osteoarthritis of left hip: Code(s): M16.12 - Unilateral primary osteoarthritis, left hip Category: Medical (4) Postlaminectomy syndrome: Code(s): M96.1 - Postlaminectomy syndrome, not elsewhere classified Category: Medical (5) Chronic pain syndrome: Code(s): G89.4 - Chronic pain syndrome Category: Medical Plan This patient is suffering from consequences of the extensive surgery on the lower lumbar spine. The levels are unknown to me. She also had injections at [facility], she obviously had an MRI before the injections were performed. She will sign the medical information release note for me and we will obtain report of the MRI and reports of the performed injections at [facility]. Sacroiliac joint injection was not effective to control her pain on the left. Attention was attracted today that she has significant arthritis of the left hip see as above. I offered the patient therapeutic intra-articular left hip injection however patient adamantly refused to go for this procedure. I stated then that she can not go to her primary care physician, continue tramadol, in addition to tramadol she can have for example Celebrex. Patient Instructions: I here by testify that I spent 32 minutes in conversation with this patient, chief administrative officer Rena Gaxiola who is Japanese certified nuclear waste management engineer was very helpful in maintaining an interpreting the conversation in Japanese. Coding Level of Care Code Est Pt Level 4 (94715) Diagnoses Sacroiliitis M46.1 Sacroiliac joint dysfunction of left side M53.3 Osteoarthritis of left hip M16.12 Postlaminectomy syndrome M96.1 Chronic pain syndrome G89.4
[2024-09-05 10:13] VITALS: BP 150/70; PULSE 70; RESP 14; O2SAT 98; BMI 22.0
== END 2024-09-05 10:20 | disposition home or self-care (01) ==
PROVIDERS: PCP Internal Medicine; Visit Provider Anesthesiology
DX: M46.1 Sacroiliitis, not elsewhere classified (principal); M53.3 Sacrococcygeal disorders, not elsewhere classified; M16.12 Unilateral primary osteoarthritis, left hip; M96.1 Postlaminectomy syndrome, not elsewhere classified; G89.4 Chronic pain syndrome
CPT/HCPCS: 99214

== ENCOUNTER → 2024-09-05 09:49 | Outpatient (BNVA) | payer OTHER, SELFPAY | PROVIDERS: PCP Internal Medicine; Visit Provider Anesthesiology | DX: M46.1 Sacroiliitis, not elsewhere classified (principal); M53.3 Sacrococcygeal disorders, not elsewhere classified; M16.12 Unilateral primary osteoarthritis, left hip; G89.4 Chronic pain syndrome; M96.1 Postlaminectomy syndrome, not elsewhere classified | CPT/HCPCS: 99212 ==

== ENCOUNTER 2024-10-04 09:15 | Outpatient (REF) | payer OTHER, SELFPAY ==
[2024-10-04 11:17] LABS: MANUAL DIFF FLAG NO
[2024-10-04 11:24] LABS: Basophils Percent Auto 0.5 % (0-2); Eosinophils Absolute Auto 0.2 X10*3/uL (0.0-0.4); Eosinophils Percent Auto 2.6 % (0-4); Hematocrit 36.2 % (37.0-47.0); Hemoglobin 11.7 g/dl (12.0-16.0); Imm Gran Abs Auto 0.03 X10*3/uL (0.00-0.03); Imm Gran Pct Auto 0.4 % (0.0-0.4); Lymphocytes Absolute Auto 1.4 X10*3/uL (1.2-4.9); Lymphocytes Percent Auto 18.3 % (20-40); Mean Corpuscular HGB Conc 32.3 g/dl (31.0-35.0); Mean Corpuscular Hemoglobin 28.5 pg (27.0-33.0); Mean Corpuscular Volume 88.1 fL (80.0-98.0); Mean Platelet Volume 10.4 fL (9.4-12.3); Monocytes Absolute Auto 0.9 X10*3/uL (0.1-1.2); Monocytes Percent Auto 11.2 % (2-11); Neutrophils Absolute Auto 5.2 x10*3/uL (2.0-8.3); Platelet Count 366 X10*3/uL (160-400); Red Blood Count 4.11 X10*6/uL (4.20-5.50); White Blood Count 7.8 X10*3/uL (4.8-10.8)
[2024-10-04 15:36] LABS: TSH reflex Free T4 4.41 uIU/mL (0.32-4.0)
[2024-10-04 17:05] LABS: Free T4 (Free Thyroxine) 0.91 ng/dL (0.71-1.85)
== END 2024-10-04 09:16 | disposition home or self-care (01) ==
LOC: HO.HHCL 09:15
PROVIDERS: Visit Provider Internal Medicine
DX: I10 Essential (primary) hypertension (principal)
CPT/HCPCS: 36415; 84439; 84443; 85025

== ENCOUNTER 2024-11-07 07:55 | Outpatient (REF) | payer OTHER, SELFPAY ==
--- NOTE | ~2024-11-07 | MM_ITS ---
EXAMINATION: MM SCREENING DIGITAL BREAST TOMOSYNTHESIS, BILATERAL CLINICAL INFORMATION: Screening. Asymptomatic. COMPARISON: Mammography: Comparison is made with available priors TECHNIQUE: Digital breast mammography with tomosynthesis is performed in both the craniocaudal and mediolateral oblique views along with computer-aided detection (CAD). FINDINGS: There are scattered areas of fibroglandular density (ACR BI-RADS breast composition Category b). There are no significant masses, abnormal calcifications, or other abnormalities. MM/MM tomosynthesis screening BI IMPRESSION: No mammographic evidence of malignancy. ASSESSMENT: BI-RADS BI-RADS 1 - Negative RECOMMENDATION: Routine annual mammography screening. 1 year F/U This examination should not preclude the clinical evaluation of a suspicious palpable abnormality. This patient's information was entered into a reminder system with a target due date for their next mammogram. Electronically signed by: June Chambers DO 11/11/2024 01:19 PM [id number]
== END 2024-11-07 07:56 | disposition home or self-care (01) ==
LOC: HO.MAMMO 07:55
PROVIDERS: PCP Internal Medicine; Visit Provider Internal Medicine
DX: Z12.31 Encounter for screening mammogram for malignant neoplasm of breast (principal)
CPT/HCPCS: 77063; 77067

== ENCOUNTER → 2024-11-07 08:00 | Outpatient (BNV) | payer OTHER, SELFPAY | PROVIDERS: PCP Internal Medicine; Visit Provider Internal Medicine | DX: Z12.31 Encounter for screening mammogram for malignant neoplasm of breast (principal) | CPT/HCPCS: 77063; 77067 ==

== ENCOUNTER 2025-03-09 09:05 | Outpatient (REF) | payer OTHER, SELFPAY ==
--- NOTE | ~2025-03-09 | CT_ITS ---
CLINICAL HISTORY: NEOPLASM OF PAROTID SALIVARY GLAND CT soft tissue neck with IV contrast. COMPARISON: CT soft tissue neck dated 08/11/24 at 11:[address] soft tissue neck dated 03/26/22 at 11:48 EDT FINDINGS: Round nodule within the superficial lobe of the left parotid gland measuring 1.3 x 1.1 x 1.3 cm, similar in size and appearance to prior imaging dating back to 2021. Likely lymph nodes measuring up to 1.3 cm within the left parotid gland also appears similar to prior imaging dating back to 2021. No supraclavicular, axillary, submandibular, jugular chain or posterior cervical lymphadenopathy. Visualized lung apices are clear. Right thyroid nodule measuring 0.6 cm, stable. Left thyroid nodule measuring 0.9 cm, stable. Normal appearance of the submandibular glands. Right parotid gland appears unremarkable. Orbital soft tissues are unremarkable. Parapharyngeal fat pads are preserved. No palatine tonsillar hypertrophy. Normal epiglottis. Visualized portions of the trachea and esophagus are unremarkable. Calcified plaque present along the aortic arch and origins of the great vessels without significant stenosis. Major vascular structures enhance normally. Visualized intracranial structures are unremarkable. Moderate mid to lower cervical spondylosis most pronounced at C5-6. Straightening of the normal cervical lordosis. No acute fracture or suspicious bone lesion. IMPRESSION: 1. Stable left parotid gland lesion measuring 1.3 cm and likely lymph nodes within the left parotid gland since earliest available imaging performed in 2021. This document has been electronically signed by: Tj Kramer MD on 03/09/2025 16:13:06
[2025-03-09] MEDS: iohexoL 350 MG/ML 75 ML INFUS..BTL 60 ML IV (09:39)
--- OUTSIDE RECORDS SUMMARY | 2025-03-09 09:39 | XMS_ITS | Clinical Summary ---
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 Active clonazePAM (KlonoPIN) 0.5 MG disintegrating tablet Take 1 tablet by mouth in the morning. Active raNITIdine (Zantac) 150 MG tablet take 1 tablet by oral route 2 times every day Active tiZANidine (Zanaflex) 2 MG tablet Take 1 tablet by mouth in the morning and 1 tablet in the evening. Active Ventolin HFA 108 (90 Base) MCG/ACT inhaler INHALE 2 PUFFS EVERY 4 (FOUR) HOURS IF NEEDED FOR SHORTNESS OF BREATH OR WHEEZING. 18 g 1 Active amLODIPine (Norvasc) 10 MG tablet Take 10 mg by mouth. Active sertraline (Zoloft) 100 MG tablet Take 100 mg by mouth. Active nitroglycerin (Nitrostat) 0.[address] 0.4 mg under the tongue. Active acetaminophen (Tylenol) 500 MG tabletIndications :Chronic midline low back pain without sciatica Take 1 tablet (500 mg) by mouth every 8 (eight) hours if needed for mild pain. 90 tablet 3 024 Active loratadine (Claritin) 10 MG tablet TAKE 1 TABLET BY MOUTH EVERY MORNING 90 tablet 1 024 Active alendronate (Fosamax) 35 MG tablet TAKE 1 TABLET BY MOUTH ONCE A WEEK IN THE MORNING 30 MINUTES BEFORE ANY FOOD/DRINK OR MEDICATIONS 12 tablet 1 024 Active traMADol (Ultram) 50 MG tabletIndications :Moderate pain TOME KUMAR TABLETA CADA 12 HORAS CUANDO SEA NECESARIO PARA EL DOLOR 60 tablet 025 Active fluticasone (Flonase) 50 MCG/ACT nasal sprayIndications: Seasonal allergies SPRAY 2 SPRAYS INTO EACH NOSTRIL EVERY MORNING 48 mL 025 Active senna (Senokot) 8.6 MG tabletIndications :Constipation, unspecified constipation type Take 1 tablet (8.6 mg) by mouth at bedtime. 60 tablet 025 2024 Active rosuvastatin (Crestor) 40 MG tabletIndications :Mixed hyperlipidemia TOME 1 TABLETA POR VIA ORAL TODOS [place] - STOP ATORVASTATIN 90 tablet 2 025 Active losartan (Cozaar) 100 MG tablet TOME 1 TABLETA POR VIA ORAL TODOS [place] 90 tablet 1 025 Active metoprolol succinate XL (Toprol-XL) 200 MG 24 hr tabletIndications :Essential hypertension TOME 1 TABLETA POR VIA ORAL TODOS [place] 90 tablet 1 025 Active aspirin (Aspirin Low Dose) 81 MG EC tabletIndications :Subclavian artery stenosis (CMS/HCC) TAKE 1 TABLET BY MOUTH EVERY MORNING 90 tablet 3 025 Active Aspirin Low Dose 81 MG EC tabletIndications :Subclavian artery stenosis (CMS/HCC) TOME KUMAR TABLETA (81 MG) POR VIA ORAL EN LA MANANA 90 tablet 3 024 2024 Discontinued Active Problems Problem Noted Date Diagnosed Date Left upper quadrant abdominal pain 01/10/2025 Assessment & Plan (01/10/2025 10:52 AM EST): Mild. Tolerating POS well. Likely constipation. Explained cannot rule out early diverticulitis. -Trial of senna and glycerol suppositories -Advised please go to ER for increased pain, unable to tolerate PO, vomiting, fevers or worsening symptoms-Pt and caregiver agree with the plan. Nodule of parotid gland 09/29/2024 Assessment & Plan (09/29/2024 8:42 AM EDT): Patient had a Carotid US done 04/28/2024 ordered by Cardiology, Incidental findings of: irregular thyroid tissue and a 1 cm cystic structure in left jaw line were seen. CT 08/11/2024 CT/CT soft tissue neck wo IV contrast showed: 1. Redemonstrated 1.2 cm nodule in the superficial lobe of the left parotid gland. This lesion appears similar to exam from 2021 and minimally increased in size compared to 2019. 2. No additional focal lesion, collection, or lymphadenopathy within the soft tissues of the neck. 3. Moderate multilevel degenerative spondyloarthropathy of the cervical spine. Thyroid US done 06/16/2024 showed: IMPRESSION: Normal size homogeneous thyroid gland with no significant nodule. 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 No further follow-up is recommended. Plan: Refer to ENT surgeon for evaluation of parotid gland nodule. [facility] 04/07/2023 Assessment & Plan (01/26/2024 10:15 AM EST): Mammogram: NL : 10/07/2023 Pap Smear: s/p ROBBI LIZETT Colonoscopy: 02/26/[address] 05/21/2017 . repeat Colonoscopy 12/02/2017 Normal NO further Screen necessary per GI Assessment & Plan (04/07/2023 11:40 AM EDT): Mammogram: NL : 10/01/2022 Pap Smear: s/p ROBBI LIZETT Colonoscopy: 02/26/[address] 05/21/2017 . repeat Colonoscopy 12/02/2017 Normal NO further Screen necessary per GI Essential hypertension 01/22/2016 Assessment & Plan (09/29/2024 9:23 AM EDT): Pt here for a f/u BP controlled She is on a regimen of Losartan 100 mg po daily, Toprol XL 200 mg po daily, Amlodipine 5 mg po daily, and Hctz 25 mg po daily (prescribed by Cardiology ). Daughter contacts Dr Lazcano for refills most recent lytes, Bun and Cr done on Lab Results Component Value Date NA 141 08/11/2024 NA 141 04/28/2024 K 4.3 08/11/2024 K 4.1 04/28/2024 CL 106 08/11/2024 CL 105 04/28/2024 BUN 19 (H) 08/11/2024 BUN 18 (H) 04/28/2024 CREATININE 1.13 08/11/2024 CREATININE 1.02 04/28/2024 were wnl Plan: continue current regimen Assessment & Plan (05/17/2024 9:58 AM EDT): Pt here for a f/u BP controlled She is supposed to be on a regimen of Losartan 100 mg po daily, Toprol XL 200 mg po daily, Amlodipine 5 mg po daily, and Hctz 25 mg po daily (prescribed by Cardiology ). Daughter contacts Dr Lazcano for refills most recent lytes, Bun and Cr done on 04/28/2024 were wnl Plan: continue current regimen Today will order a repeat BMP Assessment & Plan (01/26/2024 10:34 AM EST): Pt here for a f/u BP uncontrolled She is supposed to be on a regimen of Losartan 100 mg po daily, Toprol XL 200 mg po daily, Amlodipine 5 mg po daily, and Hctz 25 mg po daily (prescribed by Cardiology ). Daughter will contact Dr Lazcano for refills most recent lytes, Bun and Cr done on 04/16/2023 were wnl Plan: continue current regimen Today will order a repeat BMP Assessment & Plan (04/07/2023 11:48 AM EDT): Pt here for a f/u BP controlled She is on a regimen of Losartan 100 mg po daily, Toprol XL 200 mg po daily, Amlodipine 5 mg po daily, and Hctz 25 mg po daily most recent lytes, Bun and Cr done on 08/06/2022 were wnl Plan: continue current regimen Subclavian artery stenosis 01/22/2016 Assessment & Plan (01/26/2024 10:15 AM EST): Carotid US done on 06/15/2014 done at [facility]. She is being followed by Cardiology. Last seen 04/30/2023 Assessment & Plan (04/07/2023 11:49 AM EDT): Carotid US done on 06/15/2014 done at [facility]. She is being followed by Cardiology Pulmonary nodule, right 08/02/2015 Assessment & Plan (04/07/2023 11:35 AM EDT): Seen on Chest CT 09/23/2022 There is scarring or chronic subsegmental atelectasis in the right upper lobe axial image 79 series 5 that is stable. There is a 4 mm right lower lobe nodule axial image 258 series 5 that is stable. There is a 3 mm right lower lobe nodule axial image 326 series 5 that is stable. There may be mild bronchiectasis seen in the bilateral lower lobes. This is stable as well. Urinary incontinence 08/02/2015 Chronic low back pain 08/24/2012 Assessment & Plan (09/29/2024 9:26 AM EDT): Pt with chronic low back pain Pt had a previous MRI of her LS spine from that showed severe spinal canal stenosis at the level L2-L3 with moderate spinal canal stenosis at the level of L3-L4 and L5-S1 as well as a right lateral disc herniation at the level of L2-L3 and a broad base diffuse disc bulge at L3-L4. Pt is status post bilateral L4 laminectomies. Pt was seen last by neurosurgeon (Dr Wang) on 07/04/2010 He reviewed her last MRI and stated in his note that he DID NOT agree with the radiologist impression (Dr Lagunas) interpretation that the stenosis was severe. He did mentioned that if the pt did not continue to improve they could consider an epidural injection, Pt now under the care of the [facility] was seen in March 07 2013, it appears pt declined steroid injections but agreed with a PT plan and was also started on amitriptyline 10mg po qhs. which she did not tolerate. Pt had a repeat MRI of her LS spine. on 04/13/2013 that showed: Stable examination from the 05/23/2010 MRI. Prior laminectomy at L4. L2-L3: Stable large right foraminal and extraforaminal disc protrusion superimposed on disc bulge. Posterior displacement of the traversing right L3 nerve root. L3-L4: Right paracentral protrusion posteriorly displacing the traversing right L4 nerve root. Moderate bilateral neural foraminal stenosis. L4-L5: Bilateral moderately severe neural foraminal narrowing, unchanged. Pt was last seen at [facility] and received a steroid injection Pt evaluated [place] [facility] [place] [facility] received steroid injections with no good results. Pt would like to stop. Assessment & Plan (05/17/2024 10:08 AM EDT): Pt with chronic low back pain Pt had a previous MRI of her LS spine from that showed severe spinal canal stenosis at the level L2-L3 with moderate spinal canal stenosis at the level of L3-L4 and L5-S1 as well as a right lateral disc herniation at the level of L2-L3 and a broad base diffuse disc bulge at L3-L4. Pt is status post bilateral L4 laminectomies. Pt was seen last by neurosurgeon (Dr Wang) on 07/04/2010 He reviewed her last MRI and stated in his note that he DID NOT agree with the radiologist impression (Dr Lagunas) interpretation that the stenosis was severe. He did mentioned that if the pt did not continue to improve they could consider an epidural injection, Pt now under the care of the [facility] was seen in March 07 2013, it appears pt declined steroid injections but agreed with a PT plan and was also started on amitriptyline 10mg po qhs. which she did not tolerate. Pt had a repeat MRI of her LS spine. on 04/13/2013 that showed: Stable examination from the 05/23/2010 MRI. Prior laminectomy at L4. L2-L3: Stable large right foraminal and extraforaminal disc protrusion superimposed on disc bulge. Posterior displacement of the traversing right L3 nerve root. L3-L4: Right paracentral protrusion posteriorly displacing the traversing right L4 nerve root. Moderate bilateral neural foraminal stenosis. L4-L5: Bilateral moderately severe neural foraminal narrowing, unchanged. Pt was last seen at [facility] and received a steroid injection Pt would like to go to the [place] [facility] Assessment & Plan (04/07/2023 11:48 AM EDT): Pt with chronic low back pain Pt had a previous MRI of her LS spine from that showed severe spinal canal stenosis at the level L2-L3 with moderate spinal canal stenosis at the level of L3-L4 and L5-S1 as well as a right lateral disc herniation at the level of L2-L3 and a broad base diffuse disc bulge at L3-L4. Pt is status post bilateral L4 laminectomies. Pt was seen last by neurosurgeon (Dr Wang) on 07/04/2010 He reviewed her last MRI and stated in his note that he DID NOT agree with the radiologist impression (Dr Laguans) interpretation that the stenosis was severe. He did mentioned that if the pt did not continue to improve they could consider an epidural injection, Pt now under the care of the [facility] was seen in March 07 2013, it appears pt declined steroid injections but agreed with a PT plan and was also started on amitriptyline 10mg po qhs. which she did not tolerate. Pt had a repeat MRI of her LS spine. on 04/13/2013 that showed: Stable examination from the 05/23/2010 MRI. Prior laminectomy at L4. L2-L3: Stable large right foraminal and extraforaminal disc protrusion superimposed on disc bulge. Posterior displacement of the traversing right L3 nerve root. L3-L4: Right paracentral protrusion posteriorly displacing the traversing right L4 nerve root. Moderate bilateral neural foraminal stenosis. L4-L5: Bilateral moderately severe neural foraminal narrowing, unchanged. Pt was last seen at [facility] and received a steroid injection Mixed hyperlipidemia 08/24/2012 Assessment & Plan (05/17/2024 10:09 AM EDT): Pt here for a f/u Patient with elevated lipids. Most recent lipid profile from: 04/28/2024 Lab Results Component Value Date TRIG 310 (H) 04/28/2024 TRIG 248 (H) 04/16/2023 CHOL 261 (H) 04/28/2024 LDLCHOLCAL 155 (H) 04/28/2024 HDL 44 04/28/2024 Currently on a regimen of: Lipitor 40 mg po qhs . Plan: Stop Lipitor ( Contacted Pharmacy ) Switch to Crestor 40 mg po qhs advised to try to adhere to a low cholesterol diet, counseled and educated about diet and exercise, Patient encouraged to come up with a personal goal for weight loss. Assessment & Plan (01/26/2024 10:16 AM EST): Pt here for a f/u Patient with elevated lipids. Most recent lipid profile from: 04/16/2023 Component Ref Range & Units 9 mo ago 2 yr ago Cholesterol, Total <200 mg/dL 208 High 196 HDL Cholesterol > OR = 50 mg/dL 48 Low 42 Low Triglycerides <150 mg/dL 248 High 295 High CM Comment: If a non-fasting specimen was collected, consider repeat triglyceride testing on a fasting specimen if clinically indicated. Wayne et al. J. of Clin. Lipidol. 2015;9:129-169. LDL Cholesterol mg/dL (calc) 122 High 115 High CM Comment: Reference range: <100 Desirable range <100 mg/dL for primary prevention; <70 mg/dL for patients with CHD or diabetic patients with > or = 2 CHD risk factors. LDL-C is now calculated using the Clement-Aguero calculation, which is a validated novel method providing better accuracy than the Friedewald equation in the estimation of LDL-C. Clement SS et al. DAVE. 2013;310(19): 2876-5679 (http://education.Baoku/faq/ZLH992) Chol/HDLC Ratio <5.0 (calc) 4.3 4.7 Non-HDL Cholesterol <130 mg/dL (calc) 160 High 154 High CM Currently on a regimen of: Lipitor 40 mg po qhs . Plan: continue with current regimen, will repeat Lipid profile advised to try to adhere to a low cholesterol diet, counseled and educated about diet and exercise, Patient encouraged to come up with a personal goal for weight loss. Assessment & Plan (04/07/2023 11:37 AM EDT): Pt here for a f/u Patient with elevated lipids. Most recent lipid profile from: 06/06/2021 showed a total cholesterol of: 196 Triglycerides of: 295 HDL of: 42 and LDL of: 115 Currently on a regimen of: Lipitor 40 mg po qhs . Plan: continue with current regimen, will repeat advised to try to adhere to a low cholesterol diet, counseled and educated about diet and exercise, Patient encouraged to come up with a personal goal for weight loss. Microscopic hematuria 06/24/2012 Assessment & Plan (04/07/2023 11:38 AM EDT): negative work up as per notes from Dr. Carlos CORREA, cystoscopy done on 02/16/12 wnl, renal scan on 02/17/12 wnl as well. Last UA on record from 03/09/2014 showed 1 + blood. Urine cytology 06/04/[address] abd and pelvis 2010 with contrast neg. repeat CT 2011 without contrast neg as well. Anxiety 05/12/2012 Depressive disorder 05/12/2012 Assessment & Plan (04/07/2023 11:37 AM EDT): Under the care of Leandro Soto with Nanette Nam and a new psychiatrist. She is on Lorazepam 0.5 mg po BID prn Sertraline 25 mg po daily and Trazodone 50 mg po q pm. Patient denies any suicidal ideation or thoughts, Patient has crisis numbers and knows to use them if needed Gastritis 05/12/2012 Encounters Date Type Department Care Team Description 02/19/2025 Refill [facility] [address] [place] [id number] Anshu Carrera MD Subclavian artery stenosis (CMS/HCC) 01/24/2025 Patient Outreach [facility] [address] [place] [id number] Anshu Carrera MD Pre-visit Planning (SDOH Screening negative and Tobacco screening negative ) 01/19/2025 Refill [facility] [address] [place] [address] Anshu Carrera MD Mixed hyperlipidemia; Essential hypertension 01/13/2025 Telephone [facility] [address] [place] [phone] Anshu Carrera MD Chart Prep 01/10/2025 10:20 AM EST Office Visit [facility] [address] [place] [phone] Gloria Langston MD Left upper quadrant abdominal pain (Primary Dx); Constipation, unspecified constipation type 01/06/2025 Refill [facility] [address] [place] [address] Anshu Carrera MD Seasonal allergies 12/15/2024 Refill [facility] [address] [place] [address] Anshu Carrera MD Moderate pain from Last 3 Months Immunizations Name Administration Dates Next Due Influenza High-dose Quadriva lent Preservative Free 08/31/2022,08/17/2021,08/10/2020 Influenza Injectable Quadriv alant Preservative Free IIV4 MDCK 07/09/2017 Influenza injectable quadriv alent IIV4 with preservative 08/19/2016,08/28/2015 Influenza, High Dose Seasona l, Preservative Free 11/10/2019,08/26/2018 Influenza, IIV3, injectable 10/04/2014 Influenza, Split (incl. tiffany fied surface antigen) 09/15/2013,08/24/2012 Moderna Covid-19 Vaccine 12+ 04/15/2022 Pneumococcal Conjugate PCV 13 08/02/2015 Pneumococcal Polysaccharide PPSV23 05/27/2013 Td (adult), 5 Lf tetanus tox oid, preservative free, adsorbed 10/30/2016 Tdap 12/16/2013 Zoster, Recombinant 05/08/2021 Zoster, live 05/22/2015 Social History Tobacco Use Types Packs/Day Years Used Date Smoking Tobacco: Never Passive Smoke Exposure: Never Smokeless Tobacco: Never Tobacco Cessation:Counseling Given: Not Answered Alcohol Answer Date Recorded Frequency of Alcohol Consumption Not on file 09/29/2024 Average Number of Drinks Not on file 024 Frequency of Binge Drinking Not on file 09/01 Score 0 09/29/2024 Depression Answer Date Recorded Patient Health Questionnaire-9 Score 2 05/17/2024 Patient Health Questionnaire-9 Score 2 05/17/2024 Last PHQ-9: Questionnaire Data Not on file 0 05/17/2024 Housing Stability Answer Date Recorded What is your housing situation today? I have john roche 10/10/[address] you li ve. Do you have problems with any of the following? None of the above 10/10/2023 Food Insecurity Answer Date Recorded Within the past 12 months, y ou worried that your food would run out before you got money to buy more: Never True 10/10/2023 Within the past 12 months,th e food you bought just didn't last and you didn't have enough money to get more: Never True 09/2023 Transportation Answer Date Recorded In the past 12 months, has l ack of transportation kept you from medical appts, meetings, work or from getting things needed for daily living? No 10/10/2023 Utilities Answer Date Recorded In the past 12 months, has t he electric, gas, oil or water company threatened to shut off services in your home? No 10/10/2023 Depression Answer Date Recorded Patient Health Questionnaire-2 Score 1 05/17/2024 Internet Access Answer Date Recorded Internet Access Q1 No 09/19/2024 Internet Access Q2 I do not want or need it 08/31 Comments Unknown Sex and Gender Information Value Date Recorded Sex Assigned at Female 09/29/2022 10:14 AM EDT Legal Sex Female 10:14 AM EDT Gender Identity Female 09/29/2022 10:14 AM EDT Sexual Orientation Choose not to disclose 2021 10:14 AM EDT Last Filed Vital Signs Vital Sign Reading Time Taken Comments Blood Pressure 154/82 01/10/2025 10:22 AM EST Pulse 73 01/10/2025 10:22 AM EST Temperature 36.6 ??C (97.9 ??F) 01/10/2025 10:[address] Respiratory Rate 16 01/10/2025 10:22 AM EST Oxygen Saturation 98% 01/10/2025 10:22 AM EST Inhaled Oxygen Concentration - - Weight 53.5 kg (118 lb) 01/10/2025 10:22 AM EST Height 154.9 cm (5' 1 ) 09/29/2024 9:16 AM EDT Body Mass Index 22.3 09/29/2024 9:16 AM EDT Plan of Treatment Upcoming Encounters Date Type Department Care Team (Late st Contact Info) Description 04/10/2025 9:00 AM EDT Office Visit [facility] [address] [place], [place] [phone] Hodan Kate, OD [address] [place] [address] 04/27/2025 2:00 PM EDT Office Visit [facility] [address] [place], [place] [phone] Anshu Carrera MD [address] [place], [place] [phone] Health Maintenance Due Date Last Done Comments Hepatitis C Screening 1963 Zoster Vaccines (3 of 3) 07/03/2021 05/08/2021, 05/01 RSV Patients and Patients Aged 60 years or older (1 - 1-dose 75+ series) 2022 COVID-19 Vaccine ( season) 2024 10/28/2022, 04/15/2022, 10/14/2021, Additional history exists Influenza Vaccine (#1) 2024 , 08/17/2021, 08/10/2020, Additional history exists Depression Screening 05/17/2025 05/17/2024, 05/17/20 24 Alcohol/Substance Use Screening 09/29/2025 09/29/2024 Tobacco Screening 10/17/2025 10/17/2024 Mammogram 11/07/2025 11/07/2024, 1106/2023, 10/01/2022, Additional history exists SDOH Screening 01/24/2026 01/24/2025 DTaP/Tdap/Td Vaccines (3 - Td or Tdap) 10/30/2026 10/30/2016, 12/16/2013 Lipid Panel 04/28/2029 04/28/2024, 03/30, 06/06/2021 Pneumococcal Vaccine: 50+ Years Completed 08/02/2015, 05/27/2013 HIB Vaccines Aged Out No longer eligi ble based on patient's age to complete this topic HPV Vaccines Aged Out No longer eligi ble based on patient's age to complete this topic Hepatitis A Vaccines Aged Out No long er eligible based on patient's age to complete this topic Hepatitis B Vaccines Aged Out No long er eligible based on patient's age to complete this topic IPV Vaccines Aged Out No longer eligi ble based on patient's age to complete this topic Meningococcal Vaccine Aged Out No jelani enid eligible based on patient's age to complete this topic RSV under 20 months Aged Out No longe r eligible based on patient's age to complete this topic Rotavirus Vaccines Aged Out No longer eligible based on patient's age to complete this topic Procedures Procedure Name Priority Date/Time Associated Diagnosis Comments BI MAMMOGRAM SCREENING TOMOSYNTHESIS BILATERAL Routine 11/07/2024 8:00 AM EST LIPID PANEL WITH REFLEX TO DIRECT LDL Routine 04/28/2024 9:55 AM EDT Mixed hyperlipidemia from Last 3 Months or Most Recently Relevant to Health Maintenance Results * BI Mammogram Screening Tomosynthesis Bilateral (11/07/2024 8:00 AM EST) Anatomical Region Laterality Modality Breast Bilateral Mammography 11/07/2024 8:00 AM EST Narrative 11/11/2024 1:22 PM EST ? [facility] [place] ? [address] ?[place] [address] ? Mammography Report ? Signed ? Patient: Pope,Jelly ?MR#: [id number] ?? [id number] ? : 1945 ?Acct:[id number] ? Age/Sex: 79 / F ?ADM Date: 12/09/24 ? Loc: HO.MAMMO ? Attending Dr: Anshu Mayo MD ? Ordering Physician: Anshu Mayo MD ?Resu ?? lts: 1Negative ? Date of Service: 11/07/24 ?Follow Up: 1 Year From Orig ?? inal Mammogram ? Procedure(s): MM tomosynthesis screening BI ?? Accession Number(s): [id number] ? cc: Anshu Mayo MD ? EXAMINATION: ?? MM SCREENING DIGITAL BREAST TOMOSYNTHESIS, BILATERAL ? CLINICAL INFORMATION: ? Screening. Asymptomatic. ? COMPARISON: ?? Mammography: Comparison is made with available priors ? TECHNIQUE: ?? Digital breast mammography with tomosynthesis is performed in both the ?? craniocaudal and mediolateral oblique views along with computer-aided ?? detection (CAD). ? FINDINGS: ?? There are scattered areas of fibroglandular density (ACR BI-RADS breast ?? composition Category b). ? There are no significant masses, abnormal calcifications, or other ?? abnormalities. ? MM/MM tomosynthesis screening BI ?? IMPRESSION: ?? No mammographic evidence of malignancy. ? ASSESSMENT: ? BI-RADS BI-RADS 1 - Negative ? RECOMMENDATION: ?? Routine annual mammography screening. ? 1 year F/U ? This examination should not preclude the clinical evaluation of a ?? suspicious palpable abnormality. ? This patient's information was entered into a reminder system with a ?? target due date for their next mammogram. ? Electronically signed by: ??June Rickymariano DO ??11/11/2024 01:19 PM EST ?? RP ? Dictated By: ?June Chambers DO ? Signed By: ?<Electronically signed by June Chambers, DO in OV> ? 11/11/24 1319 ? DD/ 0800 ? TD/TT: 11/07/24 0820 ? Chief Meteorologist: ? Procedure Note Daniela, Image - 11/11/2024 [facility] [address] [place] [address] Dr. [place], [place] [id number] Mammography Report Signed Patient: Sejal Pope#: [id number] : [id number]:[id number] Age/Sex: 79 / FADM Date: 11/07/24 Loc: HO.MAMMO Attending Dr: Anshu Mayo MD Ordering Physician: Anshu Mayo MDResu lts: 1Negative Date of Service: 11/07/24Follow Up: 1 Year From Orig inal Mammogram Procedure(s): MM tomosynthesis screening BI Accession Number(s): [id number] cc: Anshu Mayo MD EXAMINATION: MM SCREENING DIGITAL BREAST TOMOSYNTHESIS, BILATERAL CLINICAL INFORMATION: Screening. Asymptomatic. COMPARISON: Mammography: Comparison is made with available priors TECHNIQUE: Digital breast mammography with tomosynthesis is performed in both the craniocaudal and mediolateral oblique views along with computer-aided detection (CAD). FINDINGS: There are scattered areas of fibroglandular density (ACR BI-RADS breast composition Category b). There are no significant masses, abnormal calcifications, or other abnormalities. MM/MM tomosynthesis screening BI IMPRESSION: No mammographic evidence of malignancy. ASSESSMENT: BI-RADS BI-RADS 1 - Negative RECOMMENDATION: Routine annual mammography screening. 1 year F/U This examination should not preclude the clinical evaluation of a suspicious palpable abnormality. This patient's information was entered into a reminder system with a target due date for their next mammogram. Electronically signed by: June Chambers DO 11/11/2024 01:19 PM [facility] Dictated By: June Chambers DO Signed By: <Electronically signed by June Chambers DO in OV> 11/11/24 1319 DD/ 0800 TD/TT: 11/07/24 0820 Chief Meteorologist: us Anshu Johnson MD IMG BI PROCEDURES Fin al Result * (ABNORMAL) Lipid Panel with Reflex to Direct LDL (04/28/2024 9:55 AM EDT) Triglycerides 310(H) <150 mg/dL [facility] Comment:Desirable Triglyceri de: less than 150 mg/dLBorderline High Triglyceride 150-199 mg/dLHigh Triglyceride: 200-499 mg/dLVery High Triglyceride: greater than or equal to 5OO mg/dL Cholesterol 261(H) <200 mg/dL [facility] Comment:Desirable Cholestero l: less than 200 mg/dLBorderline High Cholesterol: 200-239 mg/dLHigh Cholesterol: greater than 239 mg/dL LDL Cholesterol Calculated 155(H) <100 mg/dL [facility] Comment:Desirable LDL: less than 100 mg/dLNear Optimal/Above Optimal LDL: 110- 129 mg/dLBorderline High LDL: 130-159 mg/dLHigh LDL: 160-189 mg/dLVery High LDL: greater than or equal to 190 mg/dL HDL Cholesterol 44 >40 mg/dL [facility] Comment:Desirable HDL: great er than 40 mg/dL Note: This HDL assay may give artificially low results in patients with liver disease. Blood 04/28/2024 9:55 AM EDT 04/28/2024 11:24 AM EDT us Anshu Johnson MD LAB BLOOD ORDERABLES Final Result [facility] [address] [place], [place] [phone] from Last 3 Months or Most Recently Relevant to Health Maintenance Insurance [address] [place] [id number] [facility] DUAL COMPLETE [facility] STANDARD Care Teams Machinery Cleaner Relationship Specialty Start Date End Date Anshu Carrera MD [address] [place] [id number] PCP - General Internal Medicine 09/28/14
--- OUTSIDE RECORDS SUMMARY | 2025-03-09 09:39 | XMS_ITS | Encounter Summary ---
Author Organization [employer] Address [address] [place] [address] Care Team Providers Care Fluid Dynamicist Name Role Phone Anshu Carrera MD Primary Care Provide r Reason for Visit * Reason Onset Date Comments Hospital Follow-up 02/25/2024 Encounter Details Date Type Department Care Team ([facility] st Contact Info) Description 02/25/2024 Telephone [facility] [address] [place], [place] [phone] Anshu Carrera MD [address] [place], [place] [phone] Hospital Follow-up Social History Tobacco Use Types Packs/Day Years Used Date Smoking Tobacco: Never Passive Smoke Exposure: Never Smokeless Tobacco: Never Depression Answer Date Recorded Patient Health Questionnaire-9 Score 5 04/07/2023 Housing Stability Answer Date Recorded What is [...] Answer Date Recorded Patient Health Questionnaire-2 Score 2 04/07/2023 Comments Unknown Sex and Gender Information Value Date Recorded Sex Assigned at Female 09/29/2022 10:14 AM EDT Legal Sex Female 10:14 AM EDT Gender Identity Female 09/29/2022 10:14 AM EDT Sexual Orientation Choose not to disclose 2021 10:14 AM EDT documented as of this encounter Miscellaneous Notes * Telephone Encounter - Deysi Mccabe - 02/25/2024 9:14 AM EDT Tc from pt requesting a HDF appt. [place] [facility] [place] Date of admission: 02/20 Discharge date: 02/23 Diagnosed: Chest Pain documented in this encounter Plan of Treatment Upcoming Encounters Date Type Department Care Team (Late st Contact Info) Description 04/10/2025 9:00 AM EDT Office Visit [facility] [address] [place] [address] Humble, Hodan, OD [address] [place] [address] 04/27/2025 2:00 PM EDT Office Visit [facility] [address] [place] [address] Anshu Carrera MD [address] [place] [address] documented as of this encounter Visit Diagnoses Not on filedocumented in this encounter Additional Health Concerns Assessment Noted Time PHQ-9 Depression Total Score: 5 04/07/20 23 11:17 AM EDT documented as of this encounter Care Teams Fluid Dynamicist Relationship Specialty Start Date End Date Anshu Carrera MD [address] [place] [address] PCP - General Internal Medicine 09/28/14 documented as of this encounter
--- OUTSIDE RECORDS SUMMARY | 2025-03-09 09:39 | XMS_ITS | Encounter Summary ---
Author Organization [employer] Address [address] [address] [facility] [address] [place] [address] Care Team Providers Care Informatics Developer Name Role Phone Anshu Carrera MD Primary Care Provide r Encounter Details Date Type Department Care Team ([facility] Contact Info) Description 01/02/2023 Orders Only [facility] [address] [place] [address] Homa Hogue LPN Social History Tobacco Use Types Packs/Day Years Used Date Smoking Tobacco: Never Assessed Comments Unknown Sex and Gender Information Value Date Recorded Sex Assigned at Female 09/29/2022 10:14 AM EDT Legal Sex Female 10:14 AM EDT Gender Identity Female 09/29/2022 10:14 AM EDT Sexual Orientation Choose not to disclose 2021 10:14 AM EDT COVID-19 Exposure Response Date Recorded In the last 10 days, have yo u been in contact with someone who was confirmed or suspected to have Coronavirus/COVID-19? No / Unsure 12/29/2022 8:50 AM EST documented as of this encounter Plan of Treatment Upcoming Encounters Date Type Department Care Team (Late Contact Info) Description 04/10/2025 9:00 AM EDT Office Visit [facility] [address] [place] [address] Hodan Kate, ALONZO [address] [place] [address] 04/27/2025 2:00 PM EDT Office Visit [facility] [address] [place] [address] Anshu Carrera MD [address] [place] [address] documented as of this encounter Visit Diagnoses Not on filedocumented in this encounter Care Teams Informatics Developer Relationship Specialty Start Date End Date Anshu Carrera MD [address] [place] [phone] PCP - General Internal Medicine 09/28/14 documented as of this encounter
--- OUTSIDE RECORDS SUMMARY | 2025-03-09 09:39 | XMS_ITS ---
Author Name Edwardo Solis APRN Address [address] [place] [address] Phone [phone] [facility] Care Team Providers Care Retail Client Manager Name Role Phone Jd Solislla Unavailable [phone] Unavailable Unavailable Unavailable CHRISTINE BERGER Unavailable [facility] Unavailable Reason for Referral Not Available Allergies, adverse reactions, alerts Allergen Type Reaction Severity Status Onset Date Percocet Allergy to substance (disorder) Unknown Active N/A Diltiazem Allergy to substance (disorder) Unknown Active N/A Ibuprofen Allergy to substance (disorder) Unknown Active N/A Lisinopril Allergy to substance (disorder) Unknown Active N/A Shellfish-derived Products Allergy to substance (disorder) Unknown Active N/A History of medication use Medication Class Instructions Start Date End Date Losartan Potassium 100 mg Tab TOME KUMAR T ABLETA TODOS LOS D 2022-06-26 No Data Available Loratadine 10 mg Tab TOME KUMAR TABLETA TO DOS LOS D 2023-03-17 No Data Available Alendronate Sodium 35 mg Tab TAKE 1 TABL ET BY MOUTH ONCE A WEEK IN THE MORNING 30 MINUTES BEFORE ANY FOOD/DRINK OR MEDICATIONS 2023-03-02 No Data Available Atorvastatin Calcium 40 mg Tab TOME KUMAR TABLETA TODOS LOS D AL ACOSTARSE 2023-01-05 No Data Available Fluticasone Propionate 50 MCG/ACT Suspension SPRAY 2 SPRAYS EN CADA VENTANILLA DE LA NARIZ EN LA MANANA 2023-04-07 No Data Available traMADol 50 mg Tab TOME KUMAR TABLETA CAD A 12 HORAS CUANDO SEA NECESARIO PARA EL DOLOR 2023-04-09 No Data Available Metoprolol Succinate ER 200 mg Tab ER 24hr TOME KUMAR TABLETA TODOS LOS D 2023-01-21 No Data Available Aspirin Low Dose 81 mg Tab delayed rel TOME KUMAR TABLETA (81 MG) POR VIA ORAL EN LA BENJAMIN 2023-01-28 No Data Available Paxlovid (300/100) 20 x 150 mg & 10 x 100 mg Tab Therapy Pack TOME TEE TABLETAS POR V A ORAL DOS VECES AL D A FOR 5 DAYS 2023-08-05 No Data Available traMADol 50 mg Tab 1 tablet orally q 12 hours as needed 2023-09-01 No Data Available Ventolin HFA 108 (90 Base) MCG/ACT Aerosol Solution INHALE 2 PUFFS EVERY 4 (FOUR) HOURS IF NEEDED FOR SHORTNESS OF BREATH OR WHEEZING. 2023-12-15 No Data Available Nitroglycerin 0.[address] 1 TABLET UNDER TONGUE EVERY 5 MIN NEEDED FOR CHEST PAIN, MAX OF 3 DOSES/15 MIN CALL 911/SEEK MEDICAL ATTENTION IF PAIN PERSISTS 2024-02-24 No Data Available amLODIPine Besylate 10 mg Tab TOME 1 TAB NARCISO POR V A ORAL TODOS LOS D 2024-02-22 No Data Available Acetaminophen Extra Strength 500 mg Tab TAKE 1 TABLET (500 MG) BY MOUTH EVERY 8 (EIGHT) HOURS IF NEEDED FOR MILD PAIN. 2024-05-17 No Data Available Rosuvastatin Calcium 40 mg Tab TOME 1 TABLETA POR V A ORAL TODOS LOS D - STOP ATORVASTATIN 2024-05-17 No Data Available Problem List Problem Status Onset Date Resolved Date Peripheral vascular disease, unspecified Active 2023-09-01 N/A Hyperlipidemia Active 2023-09-01 N/A Urinary incontinence Active 2023-09-01 N/A Osteoporosis Active 2023-09-01 N/A H/O malignant neoplasm Active 2023-09-01 N/A Major depressive disorder, recurrent, mild; Anxiety Ac tive 2023-09-01 N/A Traumatic amputation of left index finger Resolved 2023-09-01 2023-09-03 H/O convulsions Active 2023-09-01 N/A Essential hypertension Active 2023-09-01 N/A Chronic pain; Opioid use Active 2023-09-01 N/A [facility] Active 2024-09-19 N/A Encounters Encounters Type Facility Date of Service Diagnosis/Co mplaint New patient,40-59min; chronic exacerbation, 2 stable chronic or 1 acute illness add add modifier 95 for video (do not use for phone, instead use 33674-68) [facility] ([place] [place]2023 Other chronic painOpioid dependence, uncomplicatedMajor depressive disorder, recurrent, mildPeripheral vascular disease, unspecifiedEssential (primary) hypertensionHyperlipidemia, unspecifiedUnspecified urinary incontinenceAge-related osteoporosis without current pathological fracturePersonal history of other specified conditionsPersonal history of malignant neoplasm, unspecified New patient,40-59min; chronic exacerbation, 2 stable chronic or 1 acute illness add add modifier 95 for video (do not use for phone, instead use 13548-81) [facility] [place] New patient,40-59min; chronic exacerbation, 2 stable chronic or 1 acute illness add add modifier 95 for video (do not use for phone, instead use 24304-21) [facility] [place] New patient,40-59min; chronic exacerbation, 2 stable chronic or 1 acute illness add add modifier 95 for video (do not use for phone, instead use 52256-31) [facility] [place] New patient,40-59min; chronic exacerbation, 2 stable chronic or 1 acute illness add add modifier 95 for video (do not use for phone, instead use 30609-52) [facility] [place] New patient,40-59min; chronic exacerbation, 2 stable chronic or 1 acute illness add add modifier 95 for video (do not use for phone, instead use 51857-35) [facility] [place] New patient,40-59min; chronic exacerbation, 2 stable chronic or 1 acute illness add add modifier 95 for video (do not use for phone, instead use 37389-98) [facility] [place] New patient,40-59min; chronic exacerbation, 2 stable chronic or 1 acute illness add add modifier 95 for video (do not use for phone, instead use 91382-56) [facility] [place] New patient,40-59min; chronic exacerbation, 2 stable chronic or 1 acute illness add add modifier 95 for video (do not use for phone, instead use 96727-93) [facility] ([place] 09/[place]/2023 Unlisted special service; to be used for medical record reviews and reporting CPTII codes (1111F, etc) [facility] ([place]) 09/28/2023 Other specified counseling Unlisted special service; to be used for medical record reviews and reporting CPTII codes (1111F, etc) [facility] [place]20[place] Unlisted special service; to be used for medical record reviews and reporting CPTII codes (1111F, etc) [facility] [place]/2023 Unlisted special service; to be used for medical record reviews and reporting CPTII codes (1111F, etc) [facility] ([place]) 03/09/2024 Encounter for other specifie d aftercare Unlisted special service; to be used for medical record reviews and reporting CPTII codes (1111F, etc) [facility] [place] 03/09/20[place] RN, CN or CP time with patient by phone; use with 1111F, BP, A1c or other CPTII codes [facility] [place] 02/26/2024 Encounter for other specifie d aftercare RN, CN or CP time with patient by phone; use with 1111F, BP, A1c or other CPTII codes [facility] [place] 02/26/2024 No Data Available [facility] [place] 03[place]2024 Essential (primary) hypertension No Data Available [facility] [place]20[place] No Data Available [facility] [place] No Data Available [facility] [place] No Data Available [facility] [place] No Data Available [facility] [place]20[place] RN, CN or CP time with patient by phone; use with 1111F, BP, A1c or other CPTII codes [facility] [place] 03/24/2024 Encounter for other specifie d aftercare RN, CN or CP time with patient by phone; use with 1111F, BP, A1c or other CPTII codes [facility] ([place] 03/24/2024 Vital Signs Date of Collection Vitals 2023-09-01 06:46:43 Height - 154.94 cmWe ight - 58.97 kgBody Mass Index (BMI) - 24.56 kg/m2 2024-03-28 08:22:38 BP Diastolic - 79.0 mm[Hg]BP Systolic - 125.0 mm[Hg] Social History Social History Social History Observation Description Effec tive Time Current Smoking Status Never smoker 2025-02-28 0 Sex Female History of Procedures Procedures Service Procedure code Service date Servicing provider Phone# New patient,40-59min; chronic exacerbation, 2 stable chronic or 1 acute illness add add modifier 95 for video (do not use for phone, instead use 65225-98) 624[address] 2023-09-01 No Data Available No Data Availa ble Pain Assessment - NO pain present (1126F) 1126F 2023-09-01 No Data Available No Data A vailable Medication List Documented (1159F) 1159F 2023-09-01 No Data Available No Data Jessica ilable Medication Review by prescribing provider or pharmacist documented (1160F) 1160F 2023-09-01 No Data Available No Data Jessica ilable Advance Care Directive Advance care planning discussion documented in the medical record (1158F) 1158F 2023-09-01 No Data Available No Data Availa ble BMI obtained (3008F) 3008F 2023-09-01 No Data Availab le No Data Available Advance care planning discussed and documented in the medical record ? beneficiary/patient did not wish to or was unable to provide an advance care plan or name a surrogate decision-maker. (1124F) 1124F 2023-09-01 No Data Available No Data Availa ble Pain Assessment - Pain Documented on a Pain Scale (1125F) 1125F 2023-09-01 No Data Available No Data Jessica ilable Functional Status Assessed (1170F) 1170F 2023-09-01 No Data Available No Data Avail able Unlisted special service; to be used for medical record reviews and reporting CPTII codes (1111F, etc) [address] 2023-09-28 No Data Available No Data Availa ble SBP 130-139 (3075F) 3075F 2023-09-28 No Data Availabl e No Data Available DBP 80-89 (3079F) 3079F 2023-09-28 No Data Available No Data Available Unlisted special service; to be used for medical record reviews and reporting CPTII codes (1111F, etc) 20452 2024-03-09 No Data Available No Data Availa ble Medications prescribed in hospital were reviewed and reconciled against what they were taking prior to admission during today's visit. (1111F) 1111F 2024-03-09 No Data Available No Data Availa ble RN, CN or CP time with patient by phone; use with 1111F, BP, A1c or other CPTII codes 56099 2024-02-26 No Data Available No Data Avai lable Medications prescribed in hospital were reviewed and reconciled against what they were taking prior to admission during today's visit. (1111F) 1111F 2024-02-26 No Data Available No Data Availa ble No Data Available 87780 2024-03-28 No Data Available No Data Available Medications prescribed in hospital were reviewed and reconciled against what they were taking prior to admission during today's visit. (1111F) 11112024-03-28 No Data Available No Data Availa ble Advance care planning discussed and documented ? advance care plan or surrogate decision-maker was documented in the medical record. (1123F) 1123F 2024-03-28 No Data Available No Data Availa ble Medication List Documented (1159F) 1159F 2024-03-28 No Data Available No Data Jessica ilable SBP < 130 (3074F) 3074F 2024-03-28 No Data Available No Data Available DBP <80 (3078F) 3078F 2024-03-28 No Data Available No Data Available RN, CN or CP time with patient by phone; use with 1111F, BP, A1c or other CPTII codes 55274 2024-03-24 No Data Available No Data Avai lable Medications prescribed in hospital were reviewed and reconciled against what they were taking prior to admission during today's visit. (1111F) 1111F 2024-03-24 No Data Available No Data Availa ble Functional Status Functional Category Effective Dates RN [facility] assists with cooking, cl eaning, laundry, showering and dressing. Pt reports using assistive device of walker and cane. 2023-09-01 IADL: Medication Needs Bruce tance , Meal Prep Needs Assistance , Shopping Needs Assistance , Driving or Public Transport Needs Assistance , Housework Needs Assistance , Finances Needs Assistance 2024-09-05 Do you worry about falling? No 7 Near falls within the last 6 months? Non e 2024-09-05 How many falls within the last 6 months? None 2024-09-05 DME used with ambulation: [employer] 03-09-07 Do you feel unsteady on your feet? No 20 22-09-07 Social Supports - # of Inter actions with Friends/Family in a typical week: 2024-09-05 Cognition Status: Oriented to Person, Pl sukhdev and Time 2024-09-05 ADL: Bathing Needs Assistanc e , Dressing Needs Assistance , Eating Independent , Ambulation Needs Assistance , Transferring Needs Assistance and Toileting Needs Assistance 2024-09-05 Mental Status Status Date AOx3 2023-09-01 Assessments Date of Service Assessments 2023-09-01 06:46:43 Chronic pain; Opioid dependenceMajor depressive disorder, recurrent, mildPeripheral vascular disease, unspecifiedEssential hypertensionHyperlipidemiaUrinary incontinenceOsteoporosisH/O convulsionsH/O malignant neoplasm 2024-03-28 08:22:38 Patient Education to avoid future hospitalization: Call [facility] if symptoms of illness develop.Essential hypertension Plan of Care Date of Service Plans 2023-09-01 06:46:43 Pain Assessment - Pa in Documented (1125F)Medication Review by prescribing provider or pharmacist documented (1160F)Medication List Documented (1159F)Functional Status Assessed (1170F)Advance Care Directive Advance care planning discussion documented in the medical record (1158F)BMI obtained (3008F)Televideo new patient,40-59min; chronic exacerbation, 2 stable chronic or 1 acute illness add modifier 95Advance care planning discussed and documented ? advance care plan or surrogate decision-maker was documented in the medical record. (1123F)Advance care planning discussed and documented in the medical record ? beneficiary/patient did not wish to or was unable to provide an advance care plan or name a surrogate decision-maker. (1124F)Continue to see PCP. Follow-up with [facility] as needed for any acute or disease education needs that may arise.TramadolContinue taking medication and monitor for adverse effects and continue f/u care and monitoring with PCP. Overdose prevention discussed. Be cautious with use. Opioids are not the best treatment for chronic pain and there is risk for dependence/respiratory depression/falls/constipation/cognitive dysfunction.StableDenies SI/HICoping mechanisms, monitor for SI/HI and continue with PCP.Elevated legs, compression stockings recommended and continue f/u care w/ PCP.Losartan, MetoprololContinue taking medication, monitor BP, low salt diet, and continue with PCP.StableAtorvastatinContinue taking medication, low fat diet, exercise as tolerable and continue f/u care with PCP.StableContinue using adult briefs, encouraged to perform kegel exercises and continue f/u with PCP.AlendronateContinue taking medication, weight bearing exercises and continue f/u care with PCP.SuspectedPatient denies any convulsionsMonitor for acute onset of convulsions and seek medical attention if developingh/o Malignant neoplasm of major salivary gland, unspecifiedPrevious codedInsufficient available documentation to further assess previous diagnosisPatient unable to determine if malignant CA when attempting to recall medical history 2023-09-28 10:29:10 Unlisted special ser vice; to be used for medical record reviews and reporting CPTII codes (1111F, etc)SBP 130-139 (3075F)DBP 80-89 (3079F) 2024-02-26 07:40:51 03/02/24 2024-03-28 08:22:38 Discharge medication s reconciled with current medication listAdvance care planning discussed and documented ? advance care plan or surrogate decision-maker was documented in the medical record. (1123F)Phone (patient, parent, or guardian); 5-10 minutes of medical discussion (no modifier 95)PCP visit is planned for:Losartan, Metoprolol, amlodipineContinue taking medication, monitor BP, low salt diet, and continue with PCP. 02/22/24: Hypertensive urgency during hospitalization, causing unstable chest pain. BP today 03/28: 125/79. Patient has VNA monitoring VS. 2024-03-24 12:59:42 03/28/24 Goals Date Goal 2023-09-01 Remember to contact EMS if developing emergent symptoms. 2023-09-01 Contact us if develo ping urgent HTN s/sx, sedation, worsening depression or anxiety, or worsening pain. 2023-09-01 Continue taking medi cations as prescribed and f/u care and monitoring with PCP every 3-6 months. Health Concerns Date Concern 2024-03-28 Visit completed by deysi marley. Patient/Guardian agreed to visit via telehealth. Today, patient has chief complaint of: recent hospitalization.Hospital discharge paperwork reviewed. 2024-03-28 Tell me about your recent hospital stay(s) or ER visit(s) and precipitating factors:Reason for Hospitalization and summary of hospital course: 02/21-02/23: Presented with unstable angina, started on a heparin drip r/t to possible hypertensive urgency and tx for a UTI[Risks or red flags for readmission/contingency plan?] Contingency plan reviewed 2024-03-28 Home Health or DME n eeds: Denies 2024-03-28 PCP f/u 04/26, f/u ca rdiology 2024-03-28 Reports feeling well , denies any acute concerns or symptoms
--- OUTSIDE RECORDS SUMMARY | 2025-03-09 09:40 | XMS_ITS | Data Portability ---
Author Organization [facility] - [facility], Allergy Address [address] [place] [id number] Care Team Providers Care Dry Cleaning Manager Name Role Phone CHRISTINE BERGER Primary Care Provider Assessment Encounter Date Assessment Date Assessment LastModified by Organization Details LastModified Time 01/13/2025 01/13/2025 79 year old [place] speaking female presents for follow up of left parotid mass which occasionally does give her discomfort. She has a history of US guided FNA 02/14/19 and pathology was consistent with benign cyst. She had a CT at [facility] December 2018 and there were 3 left parotid masses with one dominant mass. On exam the left parotid mass appears unchanged compared to previous visits. I will order CT neck with contrast to assess for interval change in the 3 parotid masses and arrange for follow up after. If there is interval change she may benefit from repeating FNA. [email or web address] Not available 01/13/2025 10:23:21 Plan of Treatment Reminders Order Date Submit Date Provider Last Modified By Organization Details Last Modified Time Details Appointments None recorded. Lab None recorded. Referral None recorded. Procedures None recorded. Surgeries None recorded. Imaging CT, neck, soft tissue, w/ contrast 2024 025 [email or web address] 14 [facility] (Imaging), [address] [place] [address], [place], [address], 09:56:14 Medication Orders None recorded. Patient TargetsNo targets recorded. Patient InstructionsNo instructions recorded. Reason for Referral None Reported. 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 Medical Equipment None Reported. Allergies Allergen ID Allergen Name Allergen Category Reaction Reaction Severity Criticality Documentation Date Start Date Code Code System Note Provider Name and Address Organization Details Recorded Time 02130 Motrin medicatio n other Not available Not available 04/12/202461426 8 RxNorm React ion: unkno wn, unspe cifie d;; Not Available [facility] 4 00:53:41 13543 acetamino phen / oxycodone medicatio n other Not available Not available 04/12/2024 92091 3 RxNorm React ion: unkno wn, unspe cifie d;; Not Available [facility] 4 00:53:54 Medications Name Sig Start Date Stop Date Status Note LastModified by Organization Details LastModified Time atorvastat in 40 mg tablet TOME KUMAR TABLETA TODOS LOS D AL ACOSTARSE active Not Available Not Available No t Available trazodone 50 mg tablet 2018 active Medicatio n ID: [id number] Du ration Value: 90 Brand Name: trazodone Send Method: E-Prescri bed Subs Allowed: subs OK Specia l Instructi on: TAKE 1-2 TABLET BY MOUTH AT BEDTIME INSOMNIA Medicatio nGenericN miguel angel: trazodone Not Available Not Available Not Available senna 8.6 mg tablet TOME 1 TABLETA POR V A ORAL TODOS LOS D AL ACOSTARSE active Not Available Not Available No t Available metoprolol succinate ER 200 mg tablet,ext ended release 24 hr TOME 1 TABLETA POR V A ORAL TODOS LOS D active Not Available Not Available No t Available clonazepam 0.5 mg tablet 2018 active Medicatio n ID: [id number] Du ration Value: 30 Brand Name: clonazepa m Send Method: E-Prescri bed Subs Allowed: subs OK Specia l Instructi on: TOME KUMAR TABLETA TODOS LOS D? CUANDO SEA NECESARIO Medicati onGeneric Name: catherineazepa m Not Available Not Available Not Available metoprolol succinate ER 100 mg tablet,ext ended release 24 hr 2018 active Medicatio n ID: [id number] Du ration Value: 90 Brand Name: metoprolo l succinate Send Method: E-Prescri bed Subs Allowed: subs OK Specia l Instructi on: TAKE 1 1/2 TABLET BY ORAL ROUTE EVERY DAY Medic ationGene ricName: metoprolo l succinate Not Available Not Available Not Available sertraline 100 mg tablet 2018 active Medicatio n ID: [id number] Br and Name: sertralin e Send Method: E-Prescri bed Subs Allowed: subs OK Medica tionGener icName: sertralin e Not Available Not Available Not Available aspirin 81 mg tablet,del ayed release TOME KUMAR TABLETA (81 MG) POR VIA ORAL EN LA MANANA active Not Available Not Available No t Available tramadol 50 mg tablet TOME KUMAR TABLETA POR V A ORAL CADA DOCE HORAS CUANDO SEA NECESARIO PARA EL DOLOR active Not Available Not Available No t Available acetaminop hen 500 mg tablet TAKE 1 TABLET (500 MG) BY MOUTH EVERY 8 (EIGHT) HOURS IF NEEDED FOR MILD PAIN. active Not Available Not Available No t Available alendronat e 35 mg tablet TAKE 1 TABLET BY MOUTH ONCE A WEEK IN THE MORNING 30 MINUTES BEFORE ANY FOOD/DRIN K OR MEDICATIO NS active Not Available Not Available No t Available amlodipine 10 mg tablet TOME 1 TABLETA POR V A ORAL TODOS LOS D active Not Available Not Available No t Available nitroglyce rin 0.[address] 1 TABLET UNDER TONGUE EVERY 5 MIN NEEDED FOR CHEST PAIN, MAX OF 3 DOSES/15 MIN CALL 911/SEEK MEDICAL ATTENTION IF PAIN PERSISTS* * active Not Available Not Available No t Available hydrochlor othiazide 25 mg tablet 2018 active Medicatio n ID: [id number] Du ration Value: 90 Brand Name: sera swan e Send Method: E-Prescri bed Subs Allowed: subs OK Specia l Instructi on: TOME KUMAR TABLETA TODOS LOS D? Medi cationGen ericName: sera hunterid e Not Available Not Available Not Available losartan 100 mg tablet TOME 1 TABLETA POR V A ORAL TODOS LOS D active Not Available Not Available No t Available fluticason e propionate 50 mcg/actuat ion nasal spray,susp ension ROCIAR 2 VECES EN CADA FOSA NASAL EN LA MA IKER active Not Available Not Available No t Available loratadine 10 mg tablet TOME 1 TABLETA POR V A ORAL TODOS LOS D EN LA MA IKER active Not Available Not Available No t Available Ventolin HFA 90 mcg/actuat ion aerosol inhaler INHALE 2 PUFFS BY MOUTH EVERY 4 HOURS IF NEEDED FOR SHORTNESS OF BREATH OR WHEEZING active Not Available Not Available No t Available rosuvastat in 40 mg tablet TOME 1 TABLETA POR V A ORAL TODOS LOS D - STOP ATORVASTA TIN active Not Available Not Available No t Available glycerin (adult) rectal suppositor y INSERT 1 SUPPOSITO RY (2 G) INTO THE RECTUM IF NEEDED EACH DAY FOR CONSTIPAT ION FOR UP TO 20 DAYS. active Not Available Not Available No t Available Vitals Date Recorded Body height Body mass index (BMI) Body weight Provider Name and Address Organization Details Last Updated DateTime 01/13/2025 154.94 cm 35.9 kg/m2 50717.55 g Mya Nelson [place] - [facility] 01/13/2025 09:31:24 Social History None recorded. Functional Status None recorded. Mental Status None recorded. Family History Nothing Reported. Medical History Condition Response Arthritis Y Gynecological HistoryNo gynecological history recorded. Obstetrics History GPAL:G 0 P 0 0 0 0 Past Encounters Encounter ID Performer Location Encounter Start Date Encounter Closed Date Diagnosis/Indication Diagnosis SNOMED-CT Code Diagnosis ICD10 Code Diagnosis Note [id number] RALPH WOODARD PA-C [facility] [address] [place] [address] 01/13/2025 09:22:27 01/13/2025 09:56:14 Neoplasm of uncertain behavior of parotid gland 63924072 D37.030 Health Concerns Section Related Observation LastModified by Organization Detai ls LastModified Time None Recorded Concern Status LastModified by Organization Details LastModified Time None Recorded Advance Directives Directive None Recorded Payers Encounter Date Sequence Insurance Name Policy Number Policy Lóepz Covered Member ID López Member ID Guarantor Name 01/13/2025 1 [facility] Jelly Pope [id number] Jelly Pope 01/13/2025 2 [place] [facility] [facility] Jelly Pope [id number] Jelly Barahonaendez Notes Date Note Type Note Provider Name and Address Organization Details Recorded Time 01/13/2025 text/html 79 year old [place] speaking female presents to the office 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 She reports that she can feel the lump and occasionally has pain. She denies change in size of the lump. She has not been seen in over 3 years but in the past has been evaluated by both Dr. Escalona and Dr. Chaves for this. She has a history of US guided FNA 02/14/19 and pathology was consistent with benign cyst. She had a CT at [facility] December 2018 and there were 3 left parotid masses with one dominant mass. She denies more recent imaging. 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 RALPH WOODARD PA-C [address] [facility] [address], [place], [address], [facility] - [facility] 01/13/2025 10:26:19 OBGyn Episode No OBEpisode recorded.
--- OUTSIDE RECORDS SUMMARY | 2025-03-09 09:40 | XMS_ITS | Encounter Summary ---
Author Organization [employer] Address [address] [place] [address] Care Team Providers Care Buckle Stringer Name Role Phone Anshu Carrera MD Primary Care Provide r Reason for Visit * Reason Comments Med Refill Encounter Details Date Type Department Care Team ([facility] st Contact Info) Description 09/07/2023 Refill [facility] MEDICINE [address] [place], [place] [phone] Gloria Langston MD [address] [place] [address] Social History Tobacco Use Types Packs/Day Years Used Date Smoking Tobacco: Never Smokeless Tobacco: Never Depression Answer Date Recorded Patient Health Questionnaire-9 Score 5 04/07/2023 Housing Stability Answer Date Recorded What is your housing situation today? I have john roche 09/07/[address] you li ve. Do you have problems with any of the following? None of the above 09/07/2023 Food Insecurity Answer Date Recorded Within the past 12 months, y ou worried that your food would run out before you got money to buy more: Never True 09/07/2023 Within the past 12 months,th e food you bought just didn't last and you didn't have enough money to get more: Never True 07/2023 Transportation Answer Date Recorded In the past 12 months, has l ack of transportation kept you from medical appts, meetings, work or from getting things needed for daily living? No 09/07/2023 Utilities Answer Date Recorded In the past 12 months, has t he electric, gas, oil or water company threatened to shut off services in your home? No 09/07/2023 Depression Answer Date Recorded Patient Health Questionnaire-2 Score 2 04/07/2023 Comments Unknown Sex and Gender Information Value Date Recorded Sex Assigned at Female 09/29/2022 10:14 AM EDT Legal Sex Female 10:14 AM EDT Gender Identity Female 09/29/2022 10:14 AM EDT Sexual Orientation Choose not to disclose 2021 10:14 AM EDT documented as of this encounter Plan of Treatment Upcoming Encounters Date Type Department Care Team (Late st Contact Info) Description 04/10/2025 9:00 AM EDT Office Visit [facility] OPTOMETRY [address] [place] [address] [place], [place], OD [address] [place] [address] 04/27/2025 2:00 PM EDT Office Visit [facility] MEDICINE [address] [place] [address] Anshu Carrera MD [address] [place] [address] documented as of this encounter Visit Diagnoses Not on filedocumented in this encounter Additional Health Concerns Assessment Noted Time PHQ-9 Depression Total Score: 5 04/07/20 23 11:17 AM EDT documented as of this encounter Care Teams Buckle Stringer Relationship Specialty Start Date End Date Anshu Carrera MD [address] [place], [place] [phone] PCP - General Internal Medicine 09/28/14 documented as of this encounter
[2025-03-09 15:15] LABS: Creatinine POC 0.9 mg/dL (0.5-1.4); GFR POC > 60
== END 2025-03-09 09:06 | disposition home or self-care (01) ==
LOC: HO.CT 09:05
PROVIDERS: PCP Internal Medicine; Visit Provider Internal Medicine
DX: D37.030 Neoplasm of uncertain behavior of the parotid salivary glands (principal)
CPT/HCPCS: 70491; 82565; Q9967

== ENCOUNTER → 2025-03-09 09:08 | Outpatient (BNV) | payer OTHER, SELFPAY | PROVIDERS: PCP Internal Medicine; Visit Provider Radiology Diagnostic Radiology | DX: K11.8 Other diseases of salivary glands (principal) | CPT/HCPCS: 70491 ==

== ENCOUNTER 2025-07-06 09:40 | Outpatient (REF) | payer OTHER, SELFPAY ==
--- OUTSIDE RECORDS SUMMARY | 2025-07-06 10:07 | XMS_ITS ---
Author Name Edwardo Solis APRN Address [address] [place] [address] Phone [phone] Organization [facility] [facility] Care Team Providers Care Coil Strapper Name Role Phone Jd Solislla Unavailable [phone] Unavailable Unavailable Unavailable CHRISTINE BERGER Unavailable [facility] Unavailable [phone] Reason for Referral Not Available Allergies, adverse [...] List Problem Status Onset Date Resolved Date Synopsis Peripheral vascular disease, unspecified Active 2023-09-01 N/A Elevated le gs, compression stockings recommended and continue f/u care w/ PCP. Hyperlipidemia Active 2023-09-01 N/A StableAtor vastatinContinue taking medication, low fat diet, exercise as tolerable and continue f/u care with PCP. Urinary incontinence Active 2023-09-01 N/A Stab leContinue using adult briefs, encouraged to perform kegel exercises and continue f/u with PCP. Osteoporosis Active 2023-09-01 N/A AlendronateC ontinue taking medication, weight bearing exercises and continue f/u care with PCP. 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 Traumatic amputation of left index finger Resolved 2023-09-01 2023-09-03 CG reports that finger had left index finger amputated after having a door slam on it accidentally. She reports patient went through OT at the time. Continue f/u care with PCP. H/O convulsions Active 2023-09-01 N/A Patient d enies any convulsionsMonitor for acute onset of convulsions and seek medical attention if developing Essential hypertension Active 2023-09-01 N/A Losartan, Metopr ololContinue taking medication, monitor BP, low salt diet, and continue with PCP. 02/22/24: Hypertensive urgency during hospitalization, causing unstable chest pain. BP today 03/28: 125/79. Patient has VNA monitoring VS. Chronic pain; Opioid use Active 2023-09-01 N/A TramadolContinue taking medication and monitor for adverse effects and continue f/u care and monitoring with PCP. Overdose prevention discussed. Be cautious with use. Opioids are not the best treatment for chronic pain and there is risk for dependence/respiratory depression/falls/constipation/c ognitive dysfunction. Other problems related to medical facilities and other health care Active 2024-09-19 N/A Last ER 02/20 CP* CHEST PAIN CONTINGENCY PLANLast updated: 09/19/2024Member to call for the following symptoms: Burning pain in chest / Chest pain / Neck, shoulder, jaw, back pain/ Pleuritic chest painPlanned intervention: Assess for etiology/ Please nitroglycerin tablet under the tongue and wait 5 minutes. Repeat if pain has not resolved. After five additional minutes, assist member with calling 911 if pain persists / Calcium carbonate/simethicone (Rolaids) take 2-4 tablets q4-6hours as needed / Acetaminophen (Tylenol) 650-1000mg up to 3 times per day Encounters Encounters Type Facility Date of Service Diagnosis/Co mplaint New patient,40-59min; chronic exacerbation, 2 stable chronic or 1 acute illness add add modifier 95 for video (do not use for phone, instead use [id number]) [facility], ([place]) [place] Other chronic painOpioid dependence, uncomplicatedMajor depressive disorder, recurrent, mildPeripheral vascular disease, unspecifiedEssential (primary) hypertensionHyperlipidemia, unspecifiedUnspecified urinary incontinenceAge-related osteoporosis without current pathological fracturePersonal history of other specified conditionsPersonal history of malignant neoplasm, unspecified New patient,40-59min; chronic exacerbation, 2 stable chronic or 1 acute illness add add modifier 95 for video (do not use for phone, instead use [id number]) [facility], ([place]) 09/01/2023 New patient,40-59min; chronic exacerbation, 2 stable chronic or 1 acute illness add add modifier 95 for video (do not use for phone, instead use 25675-58) [facility], ([place]) 09[place] New patient,40-59min; chronic exacerbation, 2 stable chronic or 1 acute illness add add modifier 95 for video (do not use for phone, instead use 20702-55) [facility] ([place] 09[place] New patient,40-59min; chronic exacerbation, 2 stable chronic or 1 acute illness add add modifier 95 for video (do not use for phone, instead use 38302-89) [facility] ([place] 09[place] New patient,40-59min; chronic exacerbation, 2 stable chronic or 1 acute illness add add modifier 95 for video (do not use for phone, instead use 44518-93) [facility], ([place] 09[place] New patient,40-59min; chronic exacerbation, 2 stable chronic or 1 acute illness add add modifier 95 for video (do not use for phone, instead use 01748-02) [facility] ([place] 09[place] New patient,40-59min; chronic exacerbation, 2 stable chronic or 1 acute illness add add modifier 95 for video (do not use for phone, instead use 62578-34) [facility] ([place] 09[place] New patient,40-59min; chronic exacerbation, 2 stable chronic or 1 acute illness add add modifier 95 for video (do not use for phone, instead use 55768-42) [facility] ([place] 09[place] Unlisted special service; to be used for medical record reviews and reporting CPTII codes (1111F, etc) [facility] ([place] Other specified counseling Unlisted special service; to be used for medical record reviews and reporting CPTII codes (1111F, etc) [facility] ([place]/20[place] Unlisted special service; to be used for medical record reviews and reporting CPTII codes (1111F, etc) [facility] ([place] 09/[place]/20[place] Unlisted special service; to be used for medical record reviews and reporting CPTII codes (1111F, etc) [facility], ([place]) 03/09/2024 Encounter for other specifie d aftercare Unlisted special service; to be used for medical record reviews and reporting CPTII codes (1111F, etc) [facility] ([place] 03[place] RN, CN or CP time with patient by phone; use with 1111F, BP, A1c or other CPTII codes [facility] 02/[place]/2024 Encounter for other specifie d aftercare RN, CN or CP time with patient by phone; use with 1111F, BP, A1c or other CPTII codes [facility] 02/26/2024 No Data Available [facility]24 Essential (primary) hypertension No Data Available [facility] [place] No Data Available [facility] [place] No Data Available [facility] No Data Available [facility] No Data Available [facility] RN, CN or CP time with patient by phone; use with 1111F, BP, A1c or other CPTII codes [facility] 03/24/2024 Encounter for other specifie d aftercare RN, CN or CP time with patient by phone; use with 1111F, BP, A1c or other CPTII codes [facility] 03/[place]/2024 Vital Signs Date of Collection Vitals 2023-09-01 06:46:43 Height - 154.94 cmWe ight - 58.97 kgBody Mass Index (BMI) - 24.56 kg/m2 2024-03-28 08:22:38 BP Diastolic - 79.0 mm[Hg]BP Systolic - 125.0 mm[Hg] Social History Social History Social History Observation Description Effec tive Time Current Smoking Status Never smoker 7 Sex Female History of Procedures Procedures Service Procedure code Service date Servicing provider Phone# New patient,40-59min; chronic exacerbation, 2 stable chronic or 1 acute illness add add modifier 95 for video (do not use for phone, instead use 01251-17) [id number] 2023-09-01 No Data Available No Data Availa [...] discussed and documented in the medical record beneficiary/patient did not wish to or was [...] reviews and reporting CPTII codes (1111F, etc) [id number] 2023-09-28 No Data Available No Data Availa ble SBP 130-139 (3075F) 3075F 2023-09-28 No Data Availabl e No Data Available DBP 80-89 (3079F) 3079F 2023-09-28 No Data Available No Data Available Unlisted special service; to be used for medical record reviews and reporting CPTII codes (1111F, etc) 59907 2024-03-09 No Data Available No Data Availa ble Medications prescribed in hospital were reviewed and reconciled against what they were taking prior to admission during today's visit. (1111F) 1111F 2024-03-09 No Data Available No Data Availa ble RN, CN or CP time with patient by phone; use with 1111F, BP, A1c or other CPTII codes [id number] 2024-02-26 No Data Available No Data Avai lable Medications prescribed in hospital were reviewed and reconciled against what they were taking prior to admission during today's visit. (1111F) 11112024-02-26 No Data Available No Data Availa ble No Data Available [id number] 2024-03-28 No Data Available No Data Available Medications prescribed in hospital were reviewed and reconciled against what they were taking prior to admission during today's visit. (1111F) 11112024-03-28 No Data Available No Data Availa ble Advance care planning discussed and documented advance care plan or surrogate decision-maker was [...] 1111F, BP, A1c or other CPTII codes [id number] 2024-03-24 No Data Available No Data Avai lable Medications prescribed in hospital were reviewed and reconciled against what they were taking prior to admission during today's visit. (1111F) [id number] No Data Available No Data Availa ble Functional Status Functional Category Effective Dates [employer] assists with cooking, cl eaning, laundry, showering [...] Patient Education to avoid future hospitalization: Call [facility] if symptoms of illness develop.Essential hypertension Plan [...] modifier 95Advance care planning discussed and documented advance care plan or surrogate decision-maker was documented in the medical record. (1123F)Advance care planning discussed and documented in the medical record beneficiary/patient did not wish to or was unable to provide an advance care plan or name a surrogate decision-maker. (1124F)Continue to see PCP. Follow-up with [facility] as needed for any acute or disease [...] medication listAdvance care planning discussed and documented advance care plan or surrogate decision-maker was [...]
--- OUTSIDE RECORDS SUMMARY | 2025-07-06 10:08 | XMS_ITS | Clinical Summary ---
Author Organization [employer] Address [address] [facility] [address] [place] [address] Care Team Providers Care Cable Hooker Name Role Phone Anshu Carrera MD Primary Care Provide r Allergies Active Allergy Reactions Criticality Noted Date Comments Diltiazem 12/31/2010 Other reaction(s): chest pain Ibuprofen 08/05/2023 Lisinopril Cough 12/31/2010 Nsaids 12/31/2010 Other reaction(s): vomiting Oxycodone-Acetaminophen Other 08/05/2023 acetaminophen / oxycodone Shellfish-Derived Products Other reaction(s): Hives / Skin [...] tablet Place 0.4 mg under the tongue. 03/27/2 024 Active acetaminophen (Tylenol) 500 MG tabletIndications :Chronic midline low back pain without sciatica Take 1 tablet (500 mg) by mouth every 8 (eight) hours if needed for mild pain. 90 tablet 3 024 Active loratadine (Claritin) 10 MG tablet TAKE 1 TABLET BY MOUTH EVERY MORNING 90 tablet 1 024 Active rosuvastatin (Crestor) 40 MG tabletIndications :Mixed [...] EVERY MORNING 90 tablet 3 025 Active hydroCHLOROthiazi de (HYDRODiuril) 25 MG tablet 019 Active sennosides (Senna-Time) 8.6 MG tablet TOME 1 TABLETA POR V A ORAL TODOS LOS D AL ACOSTARSE Active alendronate (Fosamax) 35 MG tablet TAKE 1 TABLET BY MOUTH ONCE A WEEK IN THE MORNING 30 MINUTES BEFORE ANY FOOD/DRINK OR MEDICATIONS 12 tablet 1 025 Active traMADol (Ultram) 50 MG tabletIndications :Moderate pain TOME KUMAR TABLETA POR VIA ORAL CADA DOCE HORAS CUANDO SEA NECESARIO PARA EL DOLOR 60 tablet 025 Active fluticasone (Flonase) 50 MCG/ACT nasal sprayIndications: Seasonal allergies ROCIAR 2 VECES EN CADA FOSA NASAL EN LA MANANA 48 mL 025 Active fluticasone (Flonase) 50 MCG/ACT nasal sprayIndications: Seasonal allergies SPRAY 2 SPRAYS INTO EACH NOSTRIL EVERY MORNING 48 mL 025 2024 Discontinued Active Problems Problem Noted Date Diagnosed Date 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 Tolerating POS well. Likely constipation. Explained cannot rule out early diverticulitis. -Trial of senna and glycerol suppositories -Advised please go to ER for increased pain, unable to tolerate PO, vomiting, fevers or worsening symptoms-Pt and caregiver agree with the plan. Nodule of parotid gland 09/29/2024 Assessment & Plan (06/29/2025 10:20 AM EDT): Patient had a Carotid US [...] surgeon for evaluation of parotid gland nodule. CT 03/09/2025 showed: IMPRESSION: 1. Stable left parotid gland lesion measuring 1.3 cm and likely lymph nodes within the left parotid gland since earliest available imaging performed in 2021. Patient had an appointment 01/13/2025 Has a follow up 07/12/[address] for her to complete prior to last visit Assessment & Plan (09/29/2024 8:42 AM EDT): [...] surgeon for evaluation of parotid gland nodule. [facility] 04/07/2023 Assessment & Plan (01/26/2024 10:15 AM [...] GI Essential hypertension 01/22/2016 Assessment & Plan (06/29/2025 10:21 AM EDT): Pt here for a f/u [...] (H) 08/11/2024 BUN 18 (H) 04/28/2024 CREATININE 0.9 03/09/2025 CREATININE 1.13 08/11/2024 were wnl Plan: continue current regimen Repeat BMP Assessment & Plan (09/29/2024 9:23 AM EDT): [...] Subclavian artery stenosis 01/22/2016 Assessment & Plan (06/29/2025 10:18 AM EDT): Being followed by Cardiology. Last seen 05/02/2025 Gets yearly carotid US Assessment & Plan (01/26/2024 10:15 AM EST): Carotid US done on 06/15/2014 done at [facility]. She is being followed by Cardiology. Last seen 04/30/2023 Assessment & Plan (04/07/2023 11:49 AM EDT): Carotid US done on 06/15/2014 done at [facility]. She is being followed by Cardiology Pulmonary [...] is stable as well. Urinary incontinence 08/02/2015 Assessment & Plan (06/29/2025 10:31 AM EDT): Required wipes, and pads Chronic low back pain 08/24/2012 Assessment & Plan (06/29/2025 10:30 AM EDT): Pt with chronic low back [...] narrowing, unchanged. Pt was last seen at [facility] and received a steroid injection Pt evaluated at the Pain Clinic at [facility], received steroid injections with no good results. Pt would like to stop. Asking for a placard Assessment & Plan (09/29/2024 9:26 AM EDT): [...] narrowing, unchanged. Pt was last seen at [facility] and received a steroid injection Pt evaluated at the Pain Clinic at [facility], received steroid injections with no good results. [...] Pt now under the care of the [facility] was seen in March 07 2013, [...] narrowing, unchanged. Pt was last seen at [facility] and received a steroid injection Pt would like to go to the Pain Clinic at [facility] Assessment & Plan (04/07/2023 11:48 AM EDT): [...] Pt now under the care of the [facility] was seen in March 07 2013, [...] narrowing, unchanged. Pt was last seen at [facility] and received a steroid injection Mixed hyperlipidemia 08/24/2012 Assessment & Plan (06/29/2025 10:22 AM EDT): Pt here for a f/u Patient with elevated lipids. Most recent lipid profile from: Lab Results Component Value Date TRIG 310 (H) 04/28/2024 TRIG 248 (H) 04/16/2023 CHOL 261 (H) 04/28/2024 LDLCHOLCAL 155 (H) 04/28/2024 HDL 44 04/28/2024 Currently on a regimen of: Crestor 40 mg po qhs . Plan: Continue Crestor 40 mg po qhs advised to try to adhere to a low cholesterol diet, counseled and educated about diet and exercise, Patient encouraged to come up with a personal goal for weight loss. Repeat Lipid profile Assessment & Plan (05/17/2024 10:09 AM EDT): [...] factors. LDL-C is now calculated using the Clement-More calculation, which is a validated novel method providing better accuracy than the Friedewald equation in the estimation of LDL-C. Clement MOREL et al. DAVE. 2013;310(19): 4677-0175 (http://education.PLAYD8/faq/WBT889) Chol/HDLC Ratio <5.0 (calc) 4.3 4.7 Non-HDL [...] work up as per notes from Dr. Gonzalez III, cystoscopy done on 02/16/12 wnl, renal scan on 02/17/12 wnl as well. Last UA on record from 03/09/2014 showed 1 + blood. Urine cytology 06/04/[address] abd and pelvis 2010 with contrast neg. repeat CT 2011 without contrast neg as well. Anxiety 05/12/2012 Depressive disorder 05/12/2012 Assessment & Plan (06/29/2025 10:30 AM EDT): Under the care of [facility] Follows with Nanette Nam and a new psychiatrist. She is on Clozepam 0.5 mg po BID prn Sertraline 25 mg po daily and Trazodone 50 mg po q pm. Patient denies any suicidal ideation or thoughts, Patient has crisis numbers and knows to use them if needed Assessment & Plan (04/07/2023 11:37 AM EDT): Under the care of [facility] Follows with Nanette Nam and a new psychiatrist. She is on Lorazepam 0.5 mg po BID prn Sertraline 25 mg po daily and Trazodone 50 mg po q pm. Patient denies any suicidal ideation or thoughts, Patient has crisis numbers and knows to use them if needed Gastritis 05/12/2012 Encounters Date Type Department Care Team Description 07/03/2025 Refill [facility] [address] [place] [id number] Glorai Langston MD Seasonal allergies 06/29/2025 10:00 AM EDT Office Visit [address] [address] Anshu Carrera MD Essential hypertension (Primary Dx); Subclavian artery stenosis (CMS/HCC); Nodule of parotid gland; Mixed hyperlipidemia; Exudative 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, unspecified stage (CMS/HCC); Depressive disorder; Chronic midline low back pain without sciatica; Urge incontinence of urine 06/29/[address] [address] Lola Lorenzo, RN Durable Medical Equipment 06/29/2025 Travel 06/28/[address] [address] Anshu Carrera MD CHART PREP 06/22/2025 Patient Outreach [address] [address] Anshu Carrera MD Pre-visit Planning (SDOH screening was completed on 01/24/2025) 06/01/[address] [address] Anshu Carrera MD Nurse Triage 05/22/2025 Results Follow-Up [address] Soft Tissue Neck w/ Contrast 05/16/2025 Refill [facility] [address] [place] [address] Anshu Carrera MD Moderate pain 05/06/2025 Refill [facility] [address] [place] [address] Anshu Carrera MD 04/10/2025 9:00 AM EDT Office Visit [facility] [address] [place] [address] Hodan Kate, OD Intermediate stage nonexudative 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 (Primary Dx); 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; Combined forms of age-related cataract of both eyes; Meibomian gland disease of both eyes, unspecified eyelid; Presbyopia of both eyes 04/10/2025 Travel 04/07/2025 9:30 AM EDT Clinical Support [facility] [address] [place] [address] Cynthia Singleton RN Memory change 04/07/2025 Travel 04/06/2025 Refill [facility] [address] [place] [address] Gloria Langston MD Seasonal allergies from Last 3 Months Immunizations Immunization Administration Dates Next Due Influenza High-dose Quadriva [...] Answer Date Recorded Patient Health Questionnaire-9 Score 6 06/29/2025 Patient Health Questionnaire-9 Score 6 06/29/2025 Last PHQ-9: Questionnaire Data Not on file 0 06/29/2025 Housing Stability Answer Date Recorded What is [...] Date Recorded Patient Health Questionnaire-2 Score 2 06/29/2025 Internet Access Answer Date Recorded Internet Access Q1 No 09/19/2024 Internet Access Q2 I do not want or need it 08/31 Comments Unknown Sex and Gender Information Value Date Recorded Sex Assigned at Female 09/29/2022 10:14 AM EDT Legal Sex Female 10:14 AM EDT Gender Identity Female 09/29/2022 10:14 AM EDT Sexual Orientation Straight 06/29/2025 12 :37 PM EDT Last Filed Vital Signs Vital Sign Reading Time Taken Comments Blood Pressure 138/82 06/29/2025 10:26 AM EDT Pulse 64 06/29/2025 10:13 AM EDT Temperature 36.3 C (97.3 F) 06/29/2025 10:13 AM EDT Respiratory Rate 12 06/29/2025 10:13 AM EDT Oxygen Saturation 99% 06/29/2025 10:13 AM EDT Inhaled Oxygen Concentration - - Weight 52.4 kg (115 lb 9.6 oz) 06/29/2025 10:13 AM EDT Height 154.9 cm (5' 1 ) 06/29/2025 10:13 AM EDT Body Mass Index 21.84 06/29/2025 10:13 AM EDT Plan of Treatment Upcoming Encounters Date Type Department Care Team (Late st Contact Info) Description 09/26/2025 10:00 AM EDT Office Visit [facility] [address] [place] [address] Anshu Carrera MD [address] [place] [address] 10/11/2025 9:00 AM EST Office Visit [facility] [address] [place], [place] [phone] Hodan Kate, OD [address] [place] [address] Health Maintenance Due Date Last Done Comments Hepatitis C Screening 1963 Zoster Vaccines (3 of 3) 07/03/2021 05/08/2021, 05/01 RSV Patients and Patients Aged 60 years or older (1 - 1-dose 75+ series) 2022 COVID-19 Vaccine ( season) 2024 10/28/2022, 04/15/2022, 10/14/2021, Additional history exists Influenza Vaccine (#1) 2025 , 08/17/2021, 08/10/2020, Additional history exists Alcohol/Substance Use Screening 09/29/2025 09/29/2024 Mammogram 11/07/2025 11/07/2024, 1106/2023, 10/01/2022, Additional history exists SDOH Screening 01/24/2026 01/24/2025 Depression Screening 06/29/2026 06/29/2025, 06/29/20 25 Tobacco Screening 06/29/2026 06/29/2025 DTaP/Tdap/Td Vaccines (3 - Td or Tdap) [...] patient's age to complete this topic Meningococcal B Vaccine Aged Out No l onger eligible based on patient's age to complete [...] Procedure Name Priority Date/Time Associated Diagnosis Comments OCT, RETINA - OU - BOTH EYES Routine 04/10/2025 1:01 PM EDT Intermediate stage nonexudative 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 OCT MACULA INTERPRETATION Optical Coherence Tomography Interpretation Report Measurements: OD OS Macula Thickness 216 microns 212 microns Test findings: OD: Normal foveal contour, no cystoid macular edema (CME), scattered small and large drusen throughout the macula, no subretinal fluid (SRF), enlarged choroidal vessels throughout macula OS: Normal foveal contour, no cystoid macular edema (CME), scattered small drusen throughout the macula, no subretinal fluid (SRF), normal choroidal vessels throughout macula Impression and Plan: Intermediate Dry AMD right eye, Early Dry AMD left eye. Patient educated on findings. Will monitor here in 6 months. us Hodan Kate OD OPHTH TOMOGRAPHY Final Result * BI Mammogram Screening Tomosynthesis Bilateral (11/07/2024 8:00 AM EST) Anatomical Region Laterality Modality Breast Bilateral Mammography 11/07/2024 8:00 AM EST Narrative 11/11/2024 1:22 PM EST [facility] [address] [place], [place] [address] Mammography Report Signed Patient: Jelly Pope MR#: [id number] : 1945 Acct:[id number] Age/Sex: 79 / F ADM Date: 11/07/24 Loc: HO.MAMMO Attending Dr: Anshu Mayo MD Ordering Physician: Anshu Mayo MD Resu lts: 1Negative Date of Service: 11/07/24 Follow Up: 1 Year From [facility] Mammogram Procedure(s): MM tomosynthesis screening BI Accession Number(s): [id number] cc: Anshu Mayo MD EXAMINATION: MM SCREENING [...] by: June Chambers DO 11/11/2024 01:19 PM EST RP Dictated By: June Chambers DO Signed By: <Electronically signed by June Chambers DO in OV> 11/11/24 1319 DD/ 0800 TD/TT: 11/07/24 0820 Account Clerk: Procedure Note Donotuseinterpreter, Image - 11/11/2024 [facility] [address] [place] [address] Mammography Report Signed Patient: Jacques PopeR#: [id number] : 1945cct:[id number] Age/Sex: 79 / FADM Date: 11/07/24 Loc: HO.MAMMO Attending Dr: Anshu Mayo MD Ordering Physician: Anshu Mayo MDResu lts: 1Negative Date of Service: 11/07/24Follow Up: 1 Year From Orig inal Mammogram Procedure(s): MM tomosynthesis screening BI Accession Number(s): [id number] cc: Anshu Mayo MD EXAMINATION: MM SCREENING [...] by: June Chambers DO 11/11/2024 01:19 PM EST RP Dictated By: June Chambers DO Signed By: <Electronically signed by June Chambers DO in OV> 11/11/24 1319 DD/ 0800 TD/TT: 11/07/24 0820 Account Clerk: Anshu Johnson MD IMG BI PROCEDURES Fin al Result * (ABNORMAL) Lipid Panel with Reflex to Direct LDL (04/28/2024 9:55 AM EDT) Triglycerides 310(H) <150 mg/dL [facility] Comment:Desirable Triglyceri de: less than 150 mg/dLBorderline High Triglyceride 150-199 mg/dLHigh Triglyceride: 200-499 mg/dLVery High Triglyceride: greater than or equal to 5OO mg/dL Cholesterol 261(H) <200 mg/dL [facility] Comment:Desirable Cholestero l: less than 200 mg/dLBorderline High Cholesterol: 200-239 mg/dLHigh Cholesterol: greater than 239 mg/dL LDL Cholesterol Calculated 155(H) <100 mg/dL [facility] Comment:Desirable LDL: less than 100 mg/dLNear Optimal/Above Optimal LDL: 110- 129 mg/dLBorderline High LDL: 130-159 mg/dLHigh LDL: 160-189 mg/dLVery High LDL: greater than or equal to 190 mg/dL HDL Cholesterol 44 >40 mg/dL [facility] Comment:Desirable HDL: great er than 40 mg/dL Note: This HDL assay may give artificially low results in patients with liver disease. Blood 04/28/2024 9:55 AM EDT 04/28/2024 11:24 AM EDT Anshu Johnson MD LAB BLOOD ORDERABLES Final Result [facility] [address] [place] [phone] from Last 3 Months or Most Recently Relevant to Health Maintenance Insurance [facility] [place] [address] [facility] Care Teams Cable Hooker Relationship Specialty Start Date End Date Anshu Carrera MD [address] [place] [id number] PCP - General Internal Medicine 09/28/14
--- OUTSIDE RECORDS SUMMARY | 2025-07-06 10:08 | XMS_ITS | Patient Health Record ---
Author Organization [facility] Address [address] [place] [address] Care Team Providers Care Business Machines Teacher Name Role Phone Victor Hugo Johnson MD, Anshu Primary Care Provide Mark Villeda Unavailable [phone] Allergies Allergen (clinical drug ingredient) Drug/Non Drug Allergy documented on EMR Reaction Allergy Type Onset Date Status acetaminophen / oxycodone Percocet Unknown Drug Allergy Active Motrin Unknown Drug Allergy Active Reason For Referral No Information Medications Medication SIG (Take, Route, Frequency, Duration) Notes Start Date End Date Status clonazePAM 0.5 MG 1 tablet Orally once a day Active Sertraline HCl 100 MG 1 tablet Orally On ce a day Active traZODone HCl 50 MG 1 tablet at bedtime as needed Orally Once a day Active Diovan 160 MG 1 tablet Orally Once a day Active Aspir-81 81 MG 1 tablet Orally Once a day Active Atorvastatin Calcium 20 MG 1 tablet Oral ly Once a day Active Metoprolol Succinate ER 100 MG 1 tablet Orally Once a day Active traMADol HCl 50 MG 1 tablet as needed O rally every 6 hrs Active Alendronate Sodium 35 MG 1 tablet Orally Once a day Active Loratadine 10 MG 1 tablet Orally Once a day Active Social History Tobacco Use: Social History Observation Description Date Details (start date - stop date) Never Smoker NA - NA Tobacco Use/Smoking Question Answer Notes Patient is a nonsmoker Alcohol Screen Question Answer Notes Did you have a drink containing alcohol in the p ast year? No Points 0 Interpretation Negative Section Notes: Nonsmoker; no sig alcohol Problems Problem Type SNOMED Code ICD Code Onset Dates Problem Status W/U Status Risk Notes Problem 456900932 Encounter for screening for malignant neoplasm of colon (Z12.11) Active confirmed Problem 986191205 Preprocedural examination (Z01.818) Active confirmed Plan Of Treatment Future Test Test Name Order Date COLONOSCOPY 09/04/2017 Insurance Providers Payer Name Payer Address Payer Phone Subscriber Number Group Number Insured Name Patient Relationship to Insured Coverage Start Date Coverage End Date [facility] [address] [address] [place] [address] [id number] BYRNEGAIL KUMAR Self - patient is the insured MEDICAID OF [facility] [address] [place] [address] [id number] GAIL BYRNE Self - patient is the insured Medical (General) History Medical History History ICD Code Denies MS,DM,CVA,Lung disease,renal dise ase Hypertension Anxiety Hyperlipidemia Depression Negative screening colonosco py 01/2006--diverticulosis and internal hemorrhoids Surgical History Surgery Date(Month/Year) ROBBI Back surgery Hemorrhoidectomy
--- OUTSIDE RECORDS SUMMARY | 2025-07-06 10:08 | XMS_ITS | Clinical Summary ---
Author Organization [facility] Address [address] [place] [address] [place] [phone] Phone Care Team Providers Care Manager Adult Name Role Phone Unknown, Unknown Primary Care Provider Ekaterina liz Social History Tobacco Use Types Packs/Day Years Used Date Smoking Tobacco: Never Assessed Education Answer Date Recorded Are you interested in more education? Not on donnie e 03/27/2023 Are you concerned about learning? Not on file 03/27/2023 No 03/27/2023 No 03/27/2023 Digital Access Answer Date Recorded No 04/28/2023 No 04/28/2023 No 04/28/2023 Reliable internet access at home? Not on file 04/28/2023 Device with a working camera? Not on file Comments Unknown Sex and Gender Information Value Date Recorded Sex Assigned at Not on file Legal Sex Female 6:10 PM EDT Gender Identity Not on file Sexual Orientation Not on file Plan of Treatment Not on file Medical Devices Not on file Insurance #[address] [place] [address] [facility] MEDICARE REPLACEMENT MEDICARE REPLACEMENT MEDICARE REPLACEMENT MEDICARE REPLACEMENT MEDICARE REPLACEMENT MEDICARE REPLACEMENT MEDICARE REPLACEMENT MEDICARE REPLACEMENT MEDICARE REPLACEMENT Member Subscriber Plan / Payer (Ef fective 2015-Present) Name:Jelly Pope Relation to Subscriber:Self Name:Jelly Pope Payer ID:[id number] (NAIC) Group ID:Not on file Type:Medicare Address: [place] [phone] Care Teams Manager Adult Relationship Specialty Start Date End Date Unknown, Unknown, PCP - General 02/14/19 Additional Source Comments The information contained in this document represents components of the legal health record. It is not the complete legal health record.[facility]
[2025-07-06 11:31] LABS: MANUAL DIFF FLAG NO
[2025-07-06 11:42] LABS: Hematocrit 36.9 % (37.0-47.0); Hemoglobin 12.0 g/dl (12.0-16.0); Imm Gran Abs Auto 0.03 X10*3/uL (0.00-0.03); Imm Gran Pct Auto 0.4 % (0.0-0.4); Lymphocytes Absolute Auto 1.7 X10*3/uL (1.2-4.9); Mean Corpuscular HGB Conc 32.5 g/dl (31.0-35.0); Mean Corpuscular Hemoglobin 28.2 pg (27.0-33.0); Mean Corpuscular Volume 86.8 fL (80.0-98.0); NRBC Abs Auto 0.000 X10*3/uL (0.0-0.012); NRBC Pct Auto 0.0 /100WBC (0.0-0.2); Platelet Count 473 X10*3/uL (160-400); Red Blood Count 4.25 X10*6/uL (4.20-5.50); White Blood Count 8.1 X10*3/uL (4.8-10.8)
[2025-07-06 11:47] LABS: Alanine Aminotransferase 21 U/L (0-31); Albumin Level 4.6 g/dL (3.5-5.0); Alkaline Phosphatase 97 U/L (39-117); Anion Gap 12 (12-20); Aspartate Amino Transferase 38 U/L (5-31); Blood Urea Nitrogen 27 mg/dL (9-16); Calcium 9.8 mg/dL (8.4-10.2); Carbon Dioxide 30 mmol/L (22-29); Chloride 101 mmol/L (96-108); Cholesterol 147 mg/dL (<200); Estimated Glomerular Filt Rate 38; HDL Cholesterol 44 mg/dL (>40); Potassium 4.3 mmol/L (3.3-5.1); Sodium 139 mmol/L (135-145); Total Protein 7.6 g/dL (6.5-8.0); Triglycerides 211 mg/dL (<150)
== END 2025-07-06 09:41 | disposition home or self-care (01) ==
LOC: HO.HHCL 09:40
PROVIDERS: PCP Internal Medicine; Visit Provider Internal Medicine
DX: I10 Essential (primary) hypertension (principal); E78.2 Mixed hyperlipidemia
CPT/HCPCS: 36415; 80053; 80061; 85025